=== PATIENT | female | born 1955 | race Caucasian/White ===

== ENCOUNTER 2021-06-27 00:27 | Inpatient (IN) ==
--- NOTE | 2021-06-27 00:47 | Emergency Department Note ---
SOB HPI General Chief Complaint: Shortness of Breath/Dyspnea Stated Complaint: Fluid overload Time Seen by Provider: 06/27/21 00:43 Source: patient and family Mode of arrival: wheelchair Limitations: no limitations History of Present Illness HPI Narrative: 66-year-old female presents via private vehicle with her daughter with chief complaint of shortness of breath. Shortness of breath has been getting worse the last several weeks. Patient has a history of end-stage renal failure she has had a renal transplant. She denies any chest pain. She also has gotten swelling her legs. Shortness of breath is worse with exertion and also the patient cannot lie flat due to shortness of breath. She is chronically on 5 L of oxygen at home. She has a history of congestive heart failure. Also has history of diabetes mellitus. Denies any fevers chills. Patient has had her first COVID-19 swab about 3 weeks ago. Patient has been making less urine. She does have a left upper extremity dialysis fistula and she has not been dialyzed in over a year. Patient has been cutting back on her fluids because she seem to be getting swelling in her legs. Related Data Home Medications Medication Instructions Recorded Confirmed aspirin [Adult Low Dose Aspirin] 81 mg PO QDAY 02/12/21 06/27/21 fluconazole 200 mg tablet 200 mg PO BID tab 04/07/21 06/27/21 multivitamin 1 tab PO QDAY 04/07/21 06/27/21 prasugrel 10 mg tablet See Rx Instructions .ROUTE 04/21/21 06/27/21 .COMPLEX tab bumetanide 1 mg PO BID 06/27/21 06/27/21 bumetanide 1 mg PO QDAY PRN 06/27/21 06/27/21 insulin lispro [Humalog KwikPen See Rx Instructions .ROUTE .COMPLEX 06/27/21 06/27/21 Insulin] mycophenolate mofetil [CellCept] 250 mg PO BID 06/27/21 06/27/21 phenolphthalein-docusate sod 100 tab PO DAILY 06/27/21 06/27/21 [Woman's Laxative (bisacodyl)] Previous Rx's Medication Instructions Recorded amlodipine 10 mg tablet 10 mg PO QDAY #30 tab 04/08/21 atorvastatin 40 mg tablet 40 mg PO QDAY #30 tab 04/08/21 blood sugar diagnostic #200 ea 04/08/21 insulin degludec 100 unit/mL (3 13 unit SUBCUT QHS #12 ml 04/08/21 mL) subcutaneous pen omeprazole 20 mg capsule,delayed 20 mg PO QDAY #30 cap 04/08/21 release ondansetron HCl 4 mg tablet 4 mg PO Q6H PRN #30 tab 04/08/21 pen needle, diabetic 32 gauge x #100 ea 04/08/21 3/16" prednisone 5 mg tablet 5 mg PO QDAY #90 tab 04/21/21 tacrolimus 0.75 mg tablet,extended 0.75 mg PO QAM #90 tab 04/21/21 release 24 hr tacrolimus 1 mg tablet,extended 1 mg PO QAM #90 tab 04/21/21 release 24 hr Allergies Allergy/AdvReac Type Severity Reaction Status Date / Time piperacillin [From Zosyn] Allergy Intermediate Rash Verified 06/27/21 00:33 tazobactam [From Zosyn] Allergy Intermediate Rash Verified 06/27/21 00:33 anti-thymocyte globulin, Allergy Unknown Pain and Verified 06/27/21 00:33 rabbit swelling [From Thymoglobulin] of heart cefepime [From Maxipime] AdvReac Intermediate Seizure Verified 06/27/21 00:33 Review of Systems ROS ROS Narrative: Narrative: All systems ED: reviewed and negative except as stated. Constitutional: Denies fever, chills and sweats Eyes: Denies vision change ENT ED: Denies throat pain and congestion Cardiovascular: Reports edema; Denies chest pain Respiratory: Reports shortness of breath Gastrointestinal: Denies abdominal pain, vomiting and diarrhea Musculoskeletal: Denies back pain and joint pain Integumentary: Denies rash Neurological: Denies headache and dizziness Psychiatric: Denies anxiety, suicidal thoughts and homicidal thoughts Endocrine: Denies polydipsia and polyuria Hematological/Lymphatic: Denies easy bleeding and easy bruising PFSH Narrative Patient History Narrative: Narrative: Medical/Surgical/Family History All Active Problems (Updated 06/27/21 @ 02:04 by Iker Valdez MD) CHF (congestive heart failure) (Acute) Hyponatremia (Acute) Chronic kidney disease (CKD) stage G3b/A3, moderately decreased glomerular filtration rate (GFR) between 30-44 mL/min/1.73 square meter and albuminuria creatinine ratio greater than 300 mg/g (Chronic) Kidney transplant status, cadaveric (Chronic) Immunosuppression (Chronic) Arthritis (Acute) Skin cancer (Acute) Complication of anesthesia (Acute) Coronary artery disease (Chronic) Hypertension (Chronic) Ischemic cardiomyopathy (Chronic) Chronic respiratory failure with hypoxia (Chronic) Anemia (Chronic) Moderate protein-calorie malnutrition (Acute) Heart failure with reduced ejection fraction (Chronic) ESRD (end stage renal disease) (Chronic) Status post kidney transplant (Chronic) H/O partial thyroidectomy (Chronic) Chronic otitis media of left ear with perforated tympanic membrane (Chronic) Drainage from right ear (Chronic) 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, controlled, with neuropathy (Chronic) Shortness of breath (Acute) Plugged feeling in ear (Acute) Nose congested (Acute) Bloody nose (Acute) Cryptococcus (Acute) History of cryptococcosis (Acute) Medical History Acute HFrEF (heart failure with reduced ejection fraction) Acute kidney injury Anemia Arthritis Blood infection Bloody nose Chronic otitis media of left ear with perforated tympanic membrane Chronic respiratory failure with hypoxia 5 L O2 Complication of anesthesia Nausea with anesthesia Coronary artery disease CABG x5 (1999) Cryptococcus Drainage from right ear Chronic ESRD (end stage renal disease) Heart failure with reduced ejection fraction History of cryptococcosis Hypertension Hypokalemia Hypomagnesemia Immunosuppression Ischemic cardiomyopathy Moderate protein-calorie malnutrition Nose congested Plugged feeling in ear Shortness of breath Skin cancer Type 1 diabetes mellitus with retinopathy Type 1 diabetes, controlled, with neuropathy Surgical History H/O partial thyroidectomy History of section 1971 & 1973 History of coronary angioplasty with insertion of stent (~2017) History of coronary artery bypass graft (~2001) x5 History of hysterectomy (~1988) History of mitral valve repair History of partial thyroidectomy (~2005) and partial parathyroidectomy History of renal transplant (~2017) Status post kidney transplant 01/2018 Family History Mother Skin cancer Type 2 diabetes mellitus Father Type 2 diabetes mellitus Grandmother Type 2 diabetes mellitus Paternal Social History Smoking Status: Former smoker Alcohol Intake Frequency: former alcohol drinker Substance Use: does not use Exam Narrative Narrative: Vital Signs reviewed. Constitutional: Awake alert no acute distress well-nourished well-developed Head: Normocephalic, atraumatic Eyes: PERRLA, EOMI, no conjunctivitis Ear: Normal canals and TM's Oropharynx: moist oral mucosa, no edema, no erythema, no exudate Neck: Supple, no lymphadenopathy, no JVD Lungs: Diminished breath sounds at the base lungs clear Cardiac: Regular rate and rhythm, normal distal pulses, GI: Soft nontender nondistended no guarding no rebound Musculoskeletal: No tenderness, no deformities, 1+ pedal edema, left upper extremity dialysis fistula present Back: no CVA or midline tenderness Neuro: Awake alert, cranial nerves II through XII grossly intact, no focal motor or sensory deficits Psychiatric: Normal mood and affect Skin: Warm dry no rash, cap refill less than 2 seconds General Limitations: no limitations Course Consultations Consultation #1: Case discussed discussed with supervisor tunnel heading, Dr. Pineda who agrees to see the patient in consultation. Recommends patient be given a dose of Lasix 80 mg IV now x1. Time: 02:07 Consultation #2: Patient discussed with hospitalist Dr. Welsh who agrees admit patient. Time: 02:20 Vital Signs Vital signs: Vital Signs Temperature 97.4 F 06/27/21 00:28 Pulse Rate 90 06/27/21 00:28 Respiratory Rate 16 06/27/21 00:28 Blood Pressure 140/59 06/27/21 00:28 Pulse Oximetry (%) 91 06/27/21 00:28 Temperature 97.4 F 06/27/21 00:28 Pulse Rate 79 06/27/21 02:17 Respiratory Rate 19 06/27/21 02:17 Blood Pressure 130/60 06/27/21 02:17 Pulse Oximetry (%) 96 06/27/21 02:17 [facility] Narrative Medical decision making narrative: 66-year-old presents with increasing shortness of breath. Has a history of CKD prior kidney transplant. Also has a history of congestive heart failure. She had chronically on 5 L of oxygen per nasal cannula. She has worsening exertional dyspnea and orthopnea. Chest x-ray shows pulmonary edema. BNP is elevated. BUN/creatinine were also elevated at 40 and 2.6 which is around the patient's baseline patient also has had some nausea vomiting and sodium was 126. Case discussed with supervisor tunnel heading Dr. Pineda who recommended Lasix 80 mg IV x1 he will see the patient in the hospital. Case also discussed with hospitalist Dr. Welsh agrees admit patient for evaluation and treatment. Differential Diagnosis Differential Diagnosis: CHF, acute on chronic kidney failure, anemia, pneumonia, COVID-19 Lab Data Result diagrams: 06/27/21 01:02 06/27/21 01:01 Labs: Lab Results 06/27/21 06/27/21 06/27/21 Range/Units 01:01 01:01 01:02 WBC 9.5 (4.5-11.0) K/mcL RBC 3.92 (3.59-5.38) M/mcL Hgb 11.0 L (11.2-15.7) g/dL Hct 33.3 L (34.1-44.9) % MCV 84.9 (80.0-100.0) fL MCH 28.1 (26.0-34.0) pg MCHC 33.0 (31.0-36.0) g/dL RDW 13.9 (11.5-14.5) % Plt Count 467 H (140-440) K/mcL MPV 9.2 (7.4-10.4) fL APTT (20.0-37.0) sec Sodium 126 L (133-145) mmol/L Potassium 4.7 (3.3-5.1) mmol/L Chloride 89 L (96-108) mmol/L Carbon Dioxide 19 L (22-30) mmol/L Anion Gap 18.0 H (8.0-16.0) BUN 40 H (8-23) mg/dL Creatinine 2.6 H (0.6-1.1) mg/dL GFR Calculation 18 Glucose 112 H (70-105) mg/dL Calcium 10.1 (8.6-10.4) mg/dL Total Bilirubin 0.3 (0.1-1.0) mg/dL AST 30 (<32) U/L ALT 22 (<40) U/L Alkaline Phosphatase 178 H (39-117) U/L Troponin T 0.03 H (<0.03) ng/mL NT-Pro-B Natriuret Pep 7720.0 H (<125.0) pg/mL Total Protein 7.4 (5.9-8.4) gm/dL Albumin 4.2 (3.2-5.2) gm/dL Globulin 3.2 (2.2-3.7) gm/dL Albumin/Globulin Ratio 1.3 (1.0-2.3) 06/27/21 Range/Units 01:02 WBC (4.5-11.0) K/mcL RBC (3.59-5.38) M/mcL Hgb (11.2-15.7) g/dL Hct (34.1-44.9) % MCV (80.0-100.0) fL MCH (26.0-34.0) pg MCHC (31.0-36.0) g/dL RDW (11.5-14.5) % Plt Count (140-440) K/mcL MPV (7.4-10.4) fL APTT 30.6 (20.0-37.0) sec Sodium (133-145) mmol/L Potassium (3.3-5.1) mmol/L Chloride (96-108) mmol/L Carbon Dioxide (22-30) mmol/L Anion Gap (8.0-16.0) BUN (8-23) mg/dL Creatinine (0.6-1.1) mg/dL GFR Calculation Glucose (70-105) mg/dL Calcium (8.6-10.4) mg/dL Total Bilirubin (0.1-1.0) mg/dL AST (<32) U/L ALT (<40) U/L Alkaline Phosphatase (39-117) U/L Troponin T (<0.03) ng/mL NT-Pro-B Natriuret Pep (<125.0) pg/mL Total Protein (5.9-8.4) gm/dL Albumin (3.2-5.2) gm/dL Globulin (2.2-3.7) gm/dL Albumin/Globulin Ratio (1.0-2.3) ED POC Tests ED POC Tests: NILAM - SARS Antigen Negative EKG Data EKG #1: EKG attestation: Yes I reviewed and interpreted this EKG. and Yes There are no EKG findings of acute coronary syndrome EKG results narrative: EKG performed at 1:03 AM shows sinus rhythm rate of 83 right axis deviation right bundle branch block left posterior fascicular block nonspecific ST changes no ectopy Discharge Plan Patient/Caregiver Discharge Instructions Pt seen by DONOR PROCESSOR/PA only: No Clinical Impression: ESRD (end stage renal disease), CHF (congestive heart failure), Hyponatremia, Status post kidney transplant Patient Disposition: Xfer As Inpt ([facility]) Condition: Fair Follow up with: Chris Dey MD [Primary Care Provider] - Prescriptions: No Action multivitamin Tablet 1 tab PO QDAY RF: 0 amlodipine 10 mg tablet 10 mg PO QDAY Qty: 30 RF: 2 atorvastatin 40 mg tablet 40 mg PO QDAY Qty: 30 RF: 2 (DME) blood sugar diagnostic Strip See Rx Instructions .Route Qty: 200 RF: 5 Tresiba FlexTouch U-100 100 unit/mL (3 mL) insulin pen 13 unit subcut QHS Qty: 12 RF: 0 omeprazole 20 mg capsule,delayed release(DR/EC) 20 mg PO QDAY Qty: 30 RF: 2 ondansetron HCl [Zofran] 4 mg tablet 4 mg PO Q6H PRN (Reason: nausea and vomiting) Qty: 30 RF: 0 (DME) pen needle, diabetic [Comfort EZ Pen [place]] 32 gauge x 3/16" needle See Rx Instructions .Route Qty: 100 RF: 5 Envarsus XR 1 mg tablet extended release 24 hr 1 mg PO QAM Qty: 90 RF: 3 Envarsus XR 0.75 mg tablet extended release 24 hr 0.75 mg PO QAM Qty: 90 RF: 3 prednisone 5 mg tablet 5 mg PO QDAY Qty: 90 RF: 3 Adult Low Dose Aspirin 81 mg Tablet 81 mg PO QDAY RF: 0 fluconazole 200 mg tablet 200 mg PO BID RF: 0 prasugrel [Effient] 10 mg tablet See Rx Instructions .ROUTE .COMPLEX RF: 0 bumetanide 1 mg Tablet 1 mg PO QDAY PRN (Reason: fluid overload) RF: 0 mycophenolate mofetil [CellCept] 250 mg capsule 250 mg PO BID RF: 0 bumetanide 1 mg tablet 1 mg PO BID RF: 0 insulin lispro [Humalog KwikPen Insulin] 100 unit/mL insulin pen See Rx Instructions .ROUTE .COMPLEX RF: 0 Woman's Laxative (bisacodyl) 65-100 mg Tablet 100 tab PO DAILY RF: 0
[2021-06-27] MEDS ORDERED: ONDANSETRON 4 MG/2 ML VIAL IV ONE (01:16)
[2021-06-27 01:28] LABS: Hematocrit 33.3 % (34.1-44.9); Mean Cell Volume 84.9 fL (80.0-100.0); Mean Platelet Volume 9.2 fL (7.4-10.4); Platelet Count 467 K/mcL (140-440); RBC 3.92 M/mcL (3.59-5.38); Red Cell Distribution Width 13.9 % (11.5-14.5); WBC 9.5 K/mcL (4.5-11.0)
[2021-06-27 01:46] LABS: ALT/SGPT 22 U/L (<40); AST/SGOT 30 U/L (<32); Albumin 4.2 gm/dL (3.2-5.2); Albumin/Globulin Ratio 1.3 (1.0-2.3); Alkaline Phosphatase 178 U/L (39-117); Bilirubin,Total 0.3 mg/dL (0.1-1.0); Blood Urea Nitrogen 40 mg/dL (8-23); Calcium 10.1 mg/dL (8.6-10.4); Carbon Dioxide 19 mmol/L (22-30); Chloride 89 mmol/L (96-108); Globulin 3.2 gm/dL (2.2-3.7); Glomerular Filtration Rate 18; Glucose 112 mg/dL (70-105)
[2021-06-27] MEDS ORDERED: FUROSEMIDE 100 MG/10 ML VIAL IV ONE ×2 (02:07→10:39)
[2021-06-27 02:40] LABS: Basophils % (Manual) 1 % (0-2); Lymphocytes % 3 % (15-49); Monocytes % (Manual) 4 % (1-12); Platelet Estimate INCREASED (Normal); RBC Fragments RARE (None Seen); RBC Morphology ABNORMAL (Normal); Segmented Neutrophils % 92 % (38-78)
[2021-06-27] MEDS ORDERED: METOCLOPRAMIDE 10 MG/2 ML VIAL IV ONE (03:33)
--- NOTE | 2021-06-27 07:26 | Internal Med History&Physical ---
HPI History of Present Illness Patient information: Note initiated : 06/27/21 at 7:18 am Service Date, if different from initiated Date: [] Patient: Rain Aj a 66 y/o F admitted on 06/27/21 for Fluid overload. Chief Complaint: [] History of present illness: Ms. Aj is a 66 year old F Presents to the ED with shortness of breath and she says that over the past couple weeks it feels like she is slowly becoming more fluid overloaded. She also has some nausea and dry heaving and daughter reports that the happens when she becomes fluid overloaded. She is on 5 L of oxygen at home. Increased swelling in her legs. She had been on dialysis in the past but received a kidney transplant. In the ED she was worked up and chest x-ray showed pulmonary edema and she was given Lasix. BUN and creatinine were elevated. And she had a low sodium of 126. Case discussed with can conveyor feeder Dr. Pineda. Patient had a poor response from the Lasix given last night. Patient is severely hard of hearing and a lot of history is obtained from the daughter. Daughter states that patient becomes fluid overloaded occasionally and it seems to be once a year. When this happens she will go in the hospital and the usually dialyze her for few days and that will resolve her issue. Patient denies being exposed to anybody sick recently Denies any fevers or chills. Has some nausea. Review of Systems: Pertinent positives as above. Denies/fever/chills/chest or abdominal pain/diarrhea. Remaining 10 point review of system reviewed negative PFSH PFSH All Active Problems (Updated 06/27/21 @ 02:04 by Iker Valdez MD) CHF (congestive heart failure) (Acute) Hyponatremia (Acute) Chronic kidney disease (CKD) stage G3b/A3, moderately decreased glomerular filtration rate (GFR) between 30-44 mL/min/1.73 square meter and albuminuria creatinine ratio greater than 300 mg/g (Chronic) Kidney transplant status, cadaveric (Chronic) Immunosuppression (Chronic) Arthritis (Acute) Skin cancer (Acute) Complication of anesthesia (Acute) Coronary artery disease (Chronic) Hypertension (Chronic) Ischemic cardiomyopathy (Chronic) Chronic respiratory failure with hypoxia (Chronic) Anemia (Chronic) Moderate protein-calorie malnutrition (Acute) Heart failure with reduced ejection fraction (Chronic) ESRD (end stage renal disease) (Chronic) Status post kidney transplant (Chronic) H/O partial thyroidectomy (Chronic) Chronic otitis media of left ear with perforated tympanic membrane (Chronic) Drainage from right ear (Chronic) 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, controlled, with neuropathy (Chronic) Shortness of breath (Acute) Plugged feeling in ear (Acute) Nose congested (Acute) Bloody nose (Acute) Cryptococcus (Acute) History of cryptococcosis (Acute) Medical History Acute HFrEF (heart failure with reduced ejection fraction) Acute kidney injury Anemia Arthritis Blood infection Bloody nose Chronic otitis media of left ear with perforated tympanic membrane Chronic respiratory failure with hypoxia 5 L O2 Complication of anesthesia Nausea with anesthesia Coronary artery disease CABG x5 (1999) Cryptococcus Drainage from right ear Chronic ESRD (end stage renal disease) Heart failure with reduced ejection fraction History of cryptococcosis Hypertension Hypokalemia Hypomagnesemia Immunosuppression Ischemic cardiomyopathy Moderate protein-calorie malnutrition Nose congested Plugged feeling in ear Shortness of breath Skin cancer Type 1 diabetes mellitus with retinopathy Type 1 diabetes, controlled, with neuropathy Surgical History H/O partial thyroidectomy History of section 1971 & 1973 History of coronary angioplasty with insertion of stent (~2017) History of coronary artery bypass graft (~2001) x5 History of hysterectomy (~1988) History of mitral valve repair History of partial thyroidectomy (~2005) and partial parathyroidectomy History of renal transplant (~2017) Status post kidney transplant 01/2018 Family History Mother Skin cancer Type 2 diabetes mellitus Father Type 2 diabetes mellitus Grandmother Type 2 diabetes mellitus Paternal Social History (Updated 04/07/21 @ 10:06 by Shraddha Ayala RN) marital status: smoking status: Former smoker pack-years: 5 alcohol intake frequency: former alcohol drinker substance use type: does not use MEDS/ALLERGIES Home Medications and Allergies Home Medications Medication Instructions Recorded Confirmed Type aspirin [Adult Low Dose Aspirin] 81 mg PO QDAY 02/12/21 06/27/21 History fluconazole 200 mg tablet 200 mg PO BID tab 04/07/21 06/27/21 History multivitamin 1 tab PO QDAY 04/07/21 06/27/21 History atorvastatin 40 mg tablet 40 mg PO QDAY #30 tab 04/08/21 06/27/21 Rx blood sugar diagnostic #200 ea 04/08/21 06/27/21 Rx insulin degludec 100 unit/mL (3 13 unit SUBCUT QHS #12 ml 04/08/21 06/27/21 Rx mL) subcutaneous pen omeprazole 20 mg capsule,delayed 20 mg PO QDAY #30 cap 04/08/21 06/27/21 Rx release ondansetron HCl 4 mg tablet 4 mg PO Q6H PRN #30 tab 04/08/21 06/27/21 Rx pen needle, diabetic 32 gauge x #100 ea 04/08/21 06/27/21 Rx 01/19" prasugrel 10 mg tablet See Rx Instructions .ROUTE 04/21/21 06/27/21 History .COMPLEX tab prednisone 5 mg tablet 5 mg PO QDAY #90 tab 04/21/21 06/27/21 Rx tacrolimus 0.75 mg tablet,extended 0.75 mg PO QAM #90 tab 04/21/21 06/27/21 Rx release 24 hr tacrolimus 1 mg tablet,extended 1 mg PO QAM #90 tab 04/21/21 06/27/21 Rx release 24 hr amlodipine 10 mg PO QDAY 06/27/21 06/27/21 History bumetanide 1 mg PO BID 06/27/21 06/27/21 History bumetanide 1 mg PO QDAY PRN 06/27/21 06/27/21 History insulin lispro [Humalog KwikPen See Rx Instructions .ROUTE .COMPLEX 06/27/21 06/27/21 History Insulin] mycophenolate mofetil [CellCept] 250 mg PO BID 06/27/21 06/27/21 History phenolphthalein-docusate sod 100 tab PO DAILY 06/27/21 06/27/21 History [Woman's Laxative (bisacodyl)] Allergies Allergy/AdvReac Type Severity Reaction Status Date / Time piperacillin [From Zosyn] Allergy Intermediate Rash Verified 06/27/21 03:40 tazobactam [From Zosyn] Allergy Intermediate Rash Verified 06/27/21 03:40 anti-thymocyte globulin, Allergy Unknown Pain and Verified 06/27/21 03:40 rabbit swelling [From Thymoglobulin] of heart cefepime [From Maxipime] AdvReac Intermediate Seizure Verified 06/27/21 03:40 EXAM Constitutional Vitals: Temp Pulse Resp BP Pulse Ox 97.2 F 77 14 139/56 99 06/27/21 03:24 06/27/21 06:01 06/27/21 06:01 06/27/21 06:01 06/27/21 06:01 Exam: General: Alert, Awake, No acute Distress Eyes/N/T: EOMI, PERRL, Head/Neck: neck supple, normocephalic atraumatic CV: RRR, 2/6SM, normal s1/s2 Pulm: Diminished b/l bases with mild rales, no wheezing Abd: soft, nontender, +BS x4 Ext: no clubbing/cyanosis, 1+ b/l LE edema. LUE fistula Neuro: Alert, no focal deficits, moves all extremities, CN 2-12 grossly intact, symmetrical strength b/l upper/lower, sensations intact b/l upper/lower Skin: warm/dry DATA Data Completed and Pending Labs: Labs from last 24 hours 06/27/21 06/27/21 06/27/21 01:02 01:02 01:01 WBC 9.5 RBC 3.92 Hgb 11.0 L Hct 33.3 L MCV 84.9 MCH 28.1 MCHC 33.0 RDW 13.9 Plt Count 467 H MPV 9.2 Seg Neutrophils % 92 H Lymphocytes % 3 L Monocytes % (Manual) 4 Basophils % (Manual) 1 Platelet Estimate Increased A RBC Morphology Abnormal A RBC Fragments Rare A APTT 30.6 Sodium Potassium Chloride Carbon Dioxide Anion Gap BUN Creatinine GFR Calculation Glucose Calcium Total Bilirubin AST ALT Alkaline Phosphatase Troponin T 0.03 H NT-Pro-B Natriuret Pep Total Protein Albumin Globulin Albumin/Globulin Ratio 06/27/21 01:01 WBC RBC Hgb Hct MCV MCH MCHC RDW Plt Count MPV Seg Neutrophils % Lymphocytes % Monocytes % (Manual) Basophils % (Manual) Platelet Estimate RBC Morphology RBC Fragments APTT Sodium 126 L Potassium 4.7 Chloride 89 L Carbon Dioxide 19 L Anion Gap 18.0 H BUN 40 H Creatinine 2.6 H GFR Calculation 18 Glucose 112 H Calcium 10.1 Total Bilirubin 0.3 AST 30 ALT 22 Alkaline Phosphatase 178 H Troponin T NT-Pro-B Natriuret Pep 7720.0 H Total Protein 7.4 Albumin 4.2 Globulin 3.2 Albumin/Globulin Ratio 1.3 A/P Narrative A/P Narrative: A: *Volume overloaded with acute on chronic diastolic CHF w/pulmonary edema: -pt states this seems to happen once a year and she usually goes into the hospital for dialysis *CLARY on CKD IIb-IV: h/o HD but received kidney transplant 2017 *Kidney transplant: *Hyponatremia *O2-dependent @home (5L): *DM: *HTN/HLD: *Anemia, chronic: *GERD: *CAD w/CABG: * P: -Nephrology consulted -diuretics vs HD per nephrology -O2 supp, IS -basal and SSI -cont transplant meds -cont ASA/effient/Statin - -pt/ot -ppx: heparin/ home ppi DNR Time Spent With Patient Time: Total time spent is greater than 50% in coordination of care (as documented) at patient's floor/unit and/or counseling patient: QUALITY VTE Deep Vein Thrombosis/Pulmonary Embolism Present on Admission: No
--- NOTE | 2021-06-27 07:51 | Nephrology Consult Note ---
HPI Data of Consult Consult date: 06/27/21 Primary Care Provider: Chris Dey MD Consult Narrative cc:: CC: Pato Welsh HPI: this a patient seen by Dr Wise with a RTx and a complicated PMX as outine in Dr Cherry last clinic note as shown below. 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 She recently moved from [place] to be closer to family and had a recent admission at [facility]. Labs on 04/07/21: Serum sodium 138, potassium 4.4, CO2 22, creatinine 1.3, eGFR 43, calcium 10.2, albumin 4.3, WBC 9.6, PLT 401, hemoglobin 11.6, TIBC 16%, ferritin 108, vitamin B12 701, random urine microalbumin/creatinine ratio 131 mg/g creatinine. Admitted to [facility] (02/12/21 to 02/24/21) for transplant pyelonephritis with E coli bacteremia, acute renal failure and hyponatremia. Echo: LVEF 45%. Labs on 02/24/21: Serum sodium 138, potassium 4.0, CO2 32, creatinine 1.52, eGFR 35.61, phosphorus 3.7, WBC 11.68, hemoglobin 10.5, PLT 436, TIBC 39%, ferritin 238, BNP 411. Labs on 02/18/21: Cryptococcal antigen positive. Labs on 02/16/21: BK virus DNA negative. Labs on 02/14/21: Urinalysis yellow, hazy, pH 5.0, SG 1.014, protein 30, blood n egative, leukocyte esterase moderate, urine WBC 36, random urine total protein/creatinine ratio 1,100 mg/g creatinine. CT Chest, Abdomen and Pelvis on 02/12/21: Prominent extra-articular soft tissue de nsity surrounding the left sternoclavicular joint. Clinical correlation for symptoms of sternoclavicularitis recommended. Cardiomegaly. Small right pleural effusion. Calcification appears to be pleural-based at the left lung base. Atrophic [place] kidneys. No hydronephrosis. No perinephric abnormality. Transplanted kidney in the left iliac fossa is negative. No significant hydronephrosis or perinephric abnormality. Extensive atherosclerotic calcification. No abdominal aortic aneurysm. No intra-abdominal abscess." Interval Hx she has seen ID and cardiology specialists to establish care. ER reports a chief complaint of shortness of breath. Shortness of breath has been getting worse the last several weeks. Patient has a history of end-stage renal failure she has had a renal transplant. She denies any chest pain. She also has gotten swelling her legs. Shortness of breath is worse with exertion and also the patient cannot lie flat due to shortness of breath. She is chronically on 5 L of oxygen at home. She has a history of congestive heart failure. Also has history of diabetes mellitus. Denies any fevers chills. Patient has had her first COVID-19 swab about 3 weeks ago. Patient has been making less urine. She does have a left upper extremity dialysis fistula and she has not been dialyzed in over a year. Patient has been cutting back on her fluids because she seem to be getting swelling in her legs. The daughter insists that once a year she needs U/F for SOB and nothing else helps including HD. He prior chain saw mechanic is Dr Brannon in [place]. Prior SCr 1.6 mg/dl. RTx is in LLQ. She was given 100 mg bolus of furosemide IV with only 200 cc over 4 hours. Therefore, will do isolated U/F for 2 hrs and 3 liters and reassess in AM. There was NO pericardial effusion or tamponade physiology on the echocardiogram. Prior Visit with Dr Hedrick: Prior visit from Dr Vasquez: Laboratory Tests 06/27/21 06/27/21 06/27/21 01:01 01:01 01:02 WBC 9.5 Hgb 11.0 L Hct 33.3 L MCV 84.9 Plt Count 467 H Sodium 126 L Potassium 4.7 GFR Calculation 18 Glucose 112 H Troponin T 0.03 H NT-Pro-B Natriuret Pep 7720.0 H 06/24/21 11:30 Urine Color Yellow Urine Appearance Clear Urine pH 5.0 Ur Specific [place] 1.014 Urine Protein Negative Urine Glucose (UA) Negative Urine Ketones Negative Urine Occult Blood Negative Urine Nitrate Negative Urine Bilirubin Negative Ur Leukocyte Esterase Negative 02/12/21 04/07/21 06/27/21 09:15 11:14 01:01 Creatinine 2.5 H 1.3 H 2.6 H 06/26/2021 Impression: Severe pulmonary HTN with impressive PA on plain film of chest. There is concern for a restrictive cardiomyopathy (Amyloidosis due to chronic infection with crypto). If this is the case, one can expect progression of disease but I would have expected proteinuria. Treat pulmonary HTN Diuresis as tolerated. Graft failure to continue, minimize Tacrolimus Biomarkers for inflammation Echo to look for MVR function, Rule out tamponade PFSH PFSH All Active Problems (Updated 06/27/21 @ 17:38 by Dustin Pineda MD) Immunosuppression (Chronic) Arthritis (Acute) Skin cancer (Acute) Complication of anesthesia (Acute) Coronary artery disease (Chronic) Hypertension (Chronic) Ischemic cardiomyopathy (Chronic) Chronic respiratory failure with hypoxia (Chronic) Anemia (Chronic) Moderate protein-calorie malnutrition (Acute) Heart failure with reduced ejection fraction (Chronic) ESRD (end stage renal disease) (Chronic) Status post kidney transplant (Chronic) H/O partial thyroidectomy (Chronic) Chronic otitis media of left ear with perforated tympanic membrane (Chronic) Drainage from right ear (Chronic) 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, controlled, with neuropathy (Chronic) Shortness of breath (Acute) Plugged feeling in ear (Acute) Nose congested (Acute) Bloody nose (Acute) Cryptococcus (Acute) History of cryptococcosis (Acute) Kidney transplant status, cadaveric (Chronic) Chronic kidney disease (CKD) stage G3b/A3, moderately decreased glomerular filtration rate (GFR) between 30-44 mL/min/1.73 square meter and albuminuria creatinine ratio greater than 300 mg/g (Chronic) CHF (congestive heart failure) (Acute) Hyponatremia (Acute) Medical History Acute HFrEF (heart failure with reduced ejection fraction) Acute kidney injury Anemia Arthritis Blood infection Bloody nose Chronic otitis media of left ear with perforated tympanic membrane Chronic respiratory failure with hypoxia 5 L O2 Complication of anesthesia Nausea with anesthesia Coronary artery disease CABG x5 (1999) Cryptococcus Drainage from right ear Chronic ESRD (end stage renal disease) Heart failure with reduced ejection fraction History of cryptococcosis Hypertension Hypokalemia Hypomagnesemia Immunosuppression Ischemic cardiomyopathy Moderate protein-calorie malnutrition Nose congested Plugged feeling in ear Shortness of breath Skin cancer Type 1 diabetes mellitus with retinopathy Type 1 diabetes, controlled, with neuropathy Surgical History H/O partial thyroidectomy History of section 1971 & 1973 History of coronary angioplasty with insertion of stent (~2017) History of coronary artery bypass graft (~2001) x5 History of hysterectomy (~1988) History of mitral valve repair History of partial thyroidectomy (~2005) and partial parathyroidectomy History of renal transplant (~2017) Status post kidney transplant 01/2018 Family History Mother Skin cancer Type 2 diabetes mellitus Father Type 2 diabetes mellitus Grandmother Type 2 diabetes mellitus Paternal Social History (Updated 04/07/21 @ 10:06 by Shraddha Ayala RN) marital status: smoking status: Former smoker pack-years: 5 alcohol intake frequency: former alcohol drinker substance use type: does not use MEDS/ALLERGIES Home Medications and Allergies Home Medications Medication Instructions Recorded Confirmed Type aspirin [Adult Low Dose Aspirin] 81 mg PO QDAY 02/12/21 06/27/21 History fluconazole 200 mg tablet 200 mg PO BID tab 04/07/21 06/27/21 History multivitamin 1 tab PO QDAY 04/07/21 06/27/21 History atorvastatin 40 mg tablet 40 mg PO QDAY #30 tab 04/08/21 06/27/21 Rx blood sugar diagnostic #200 ea 04/08/21 06/27/21 Rx insulin degludec 100 unit/mL (3 13 unit SUBCUT QHS #12 ml 04/08/21 06/27/21 Rx mL) subcutaneous pen omeprazole 20 mg capsule,delayed 20 mg PO QDAY #30 cap 04/08/21 06/27/21 Rx release ondansetron HCl 4 mg tablet 4 mg PO Q6H PRN #30 tab 04/08/21 06/27/21 Rx pen needle, diabetic 32 gauge x #100 ea 04/08/21 06/27/21 Rx 01/19" prasugrel 10 mg tablet See Rx Instructions .ROUTE 04/21/21 06/27/21 History .COMPLEX tab prednisone 5 mg tablet 5 mg PO QDAY #90 tab 04/21/21 06/27/21 Rx tacrolimus 0.75 mg tablet,extended 0.75 mg PO QAM #90 tab 04/21/21 06/27/21 Rx release 24 hr tacrolimus 1 mg tablet,extended 1 mg PO QAM #90 tab 04/21/21 06/27/21 Rx release 24 hr amlodipine 10 mg PO QDAY 06/27/21 06/27/21 History bumetanide 1 mg PO BID 06/27/21 06/27/21 History bumetanide 1 mg PO QDAY PRN 06/27/21 06/27/21 History insulin lispro [Humalog KwikPen See Rx Instructions .ROUTE .COMPLEX 06/27/21 06/27/21 History Insulin] mycophenolate mofetil [CellCept] 250 mg PO BID 06/27/21 06/27/21 History phenolphthalein-docusate sod 100 tab PO DAILY 06/27/21 06/27/21 History [Woman's Laxative (bisacodyl)] Allergies Allergy/AdvReac Type Severity Reaction Status Date / Time piperacillin [From Zosyn] Allergy Mild Rash Verified 06/27/21 08:39 tazobactam [From Zosyn] Allergy Mild Rash Verified 06/27/21 08:39 anti-thymocyte globulin, AdvReac Intermediate Pain and Verified 06/27/21 08:39 rabbit swelling [From Thymoglobulin] of heart cefepime [From Maxipime] AdvReac Intermediate Seizure Verified 06/27/21 03:40 Physical Examination Vital Signs Vital signs: Temp Pulse Resp BP Pulse Ox 36.2 C 77 14 139/56 99 06/27/21 03:24 06/27/21 06:01 06/27/21 06:01 06/27/21 06:01 06/27/21 06:01 General Appearance General appearance: chronically ill and frail EENT EENT: ATNC and PERRL Neck Neck: JVD and supple Respiratory Respiratory: kyphosis and rales Cardiovascular Cardiology: holosystolic murmur, S3 gallop, normal S1 and normal S2 Gastrointestinal Gastrointestinal: normoactive bowel sounds Integumentary Integumentary: no rash and warm and dry Neurologic Neurologic: no focal deficit and CN 3-12 intact Musculoskeletal Musculoskeletal: no cyanosis and no clubbing Psychiatric Psychiatric: mood/affect appropriate Results Lab Results Result Diagrams: 06/27/21 01:02 06/27/21 01:01 Lab results: Most recent lab results Calcium 10.1 mg/dL (8.6-10.4) 06/27/21 01:01 A/P Assessment and plan (1) Status post kidney transplant: Assessment and plan: * GFR stable relative to 02/[address] Wise * Continue 1.75 mg qAM of Tacrolimus from pt home Rx supply * Check Tacro level * Continue cellcept and prednisone * Trend labs Status: Chronic Comment: 01/2018 (2) Heart failure with reduced ejection fraction: Assessment and plan: No tamponade or effusion Restrictive physiology on ECHO Given the hx of yearly U/F for decompensated CHF...she would have to be way to the RIGHT on the Starling curve. The lack of urine production would agree with this. Isolated U/F tonight SPEP and light chain ratio, Inflammatory biomarkers and cryoglobulins in the AM Fat pad biopsy to r/o Amyloid Schedule out patient pyrophosphate scan with [facility] med at [facility] Follow up with Dr Oseas Hedrick at [facility] cardiology Status: Chronic (3) Ischemic cardiomyopathy: Status: Chronic Comment: No change in current Rx MR (+) Decompensated CHF Narrative A/P Narrative: 1. Acute U/F tonight to push back to left on starling curve 2. Work up cardiac amyloid as restrictive CHF pattern on ECHO and a chronic infection (Crypto) Time Spent With Patient Time: Total time spent is greater than 50% in coordination of care (as documented) at patient's floor/unit and/or counseling patient: Total time spent with greater than 50% in coordination of care (as documented) at patient's floor/unit and/or counseling patient:: Greater than 35 minutes
[2021-06-27] MEDS ORDERED: ACETAMINOPHEN 325 MG TABLET PO PRN (08:33)
[2021-06-27] MEDS ORDERED: DEXTROSE 50% 50 ML VIAL IV PRN (08:33)
[2021-06-27] MEDS ORDERED: MAGNESIUM SULFATE 2 GM/50 ML BAG IV PRN (08:33)
[2021-06-27] MEDS ORDERED: POLYETHYLENE GLYCOL 3350 17 GM PACKET PO PRN (08:33)
[2021-06-27] MEDS ORDERED: ONDANSETRON 4 MG/2 ML VIAL IV PRN (08:33)
[2021-06-27] MEDS ORDERED: SENNOSIDES 1 TABLET PO PRN (08:33)
[2021-06-27] MEDS ORDERED: METOCLOPRAMIDE 10 MG/2 ML VIAL IV PRN (08:33)
[2021-06-27] MEDS ORDERED: DEXTROSE 31 GM ORAL.SUSP PO PRN (08:33)
[2021-06-27] MEDS ORDERED: IPRATROPIUM/ALBUTEROL 3 ML AMPUL.NEB NEB PRN (08:33)
[2021-06-27] MEDS ORDERED: LACTULOSE 20 GM/30 ML ORAL.SOL PO PRN (08:33)
[2021-06-27] MEDS ORDERED: POTASSIUM CHLORIDE 20 MEQ TABLET PO PRN ×2 (08:33)
[2021-06-27] MEDS ORDERED: POTASSIUM CHLORIDE 40 MEQ in DEXTROSE 5% IN WATER 500 ML IV PRN (08:33)
[2021-06-27] MEDS ORDERED: FLUCONAZOLE 100 MG TABLET PO SCH (09:00)
--- NOTE | 2021-06-27 09:18 | XRay Report ---
HISTORY: History: Dyspnea, congestive heart failure, prior kidney transplant, former smoker, fluid overload FINDINGS: There are severe diffuse alveolar opacities throughout both lungs. There are small bilateral pleural effusions, right greater than left. The heart is mildly enlarged. There has been a prior sternotomy. Comparison with the prior exam from 02/24/21 shows the cardiomegaly is stable. The alveolar opacities are worse today than they were previously. IMPRESSION: Congestive heart failure with pulmonary edema. Superimposed pneumonia cannot be excluded. Interpreted and Authenticated by: Sudhakar Sullivan 06/27/21
[2021-06-27] MEDS: ATORVASTATIN 40 MG TABLET PO SCH ×2 (09:50→10:47)
[2021-06-27] MEDS: HEPARIN 5,000 UNIT/ML VIAL SQ SCH ×3 (09:50→20:44)
[2021-06-27] MEDS: predniSONE 5 MG TABLET PO SCH ×2 (09:50→10:47)
[2021-06-27] MEDS: OMEPRAZOLE 20 MG CAPSULE PO SCH (09:50)
[2021-06-27] MEDS: MYCOPHENOLATE 250 MG CAPSULE PO SCH ×2 (09:50→20:44)
[2021-06-27] MEDS: ASPIRIN 81 MG TAB.CHEW PO SCH ×2 (09:50→10:48)
[2021-06-27] MEDS: DOCUSATE SOD PO SCH (09:51)
[2021-06-27] MEDS: DOCUSATE SODIUM 100 MG CAPSULE PO SCH ×3 (09:51→20:45)
[2021-06-27] MEDS: amLODIPine 10 MG TABLET PO SCH (09:51)
[2021-06-27] MEDS: [UNRECOGNIZED DRUG - OTHER] PO SCH (09:51)
[2021-06-27] MEDS: TACROLIMUS 0.75 MG PO SCH (09:52)
[2021-06-27] MEDS: TACROLIMUS 1 MG PO SCH (09:53)
[2021-06-27] MEDS: INSULIN LISPRO 1 UNIT/0.01 ML UNIT SQ SCH ×3 (12:00→20:45)
[2021-06-27] MEDS: 0.9 % SODIUM CHLORIDE 10 ML SYRINGE IV SCH ×2 (12:01→20:46)
[2021-06-27] MEDS: FLUCONAZOLE 100 MG TABLET PO SCH (14:57)
[2021-06-27] MEDS ORDERED: predniSONE 5 MG TABLET PO SCH (15:00)
[2021-06-27 19:34] LABS: Hepatitis B Surface Antibody POSITIVE (Negative); Hepatitis B Surface Antigen Negative (Negative)
[2021-06-27] MEDS ORDERED: INSULIN DEGLUDEC 100 UNIT/ML SUB-Q SCH (21:00)
[2021-06-27] MEDS ORDERED: ASPIRIN 81 MG TAB.CHEW PO SCH (21:00)
[2021-06-27] MEDS ORDERED: ATORVASTATIN 40 MG TABLET PO SCH (21:00)
[2021-06-28] MEDS: 0.9 % SODIUM CHLORIDE 10 ML SYRINGE IV SCH ×3 (05:58→21:38)
--- NOTE | 2021-06-28 07:12 | Internal Med Progress Note ---
SUBJECTIVE Subjective Patient information: Note initiated : 06/28/21 at 7:09 am Service Date, if different from initiated Date: [] Patient: Rain Aj 66 y/o F admitted on 06/27/21 for Fluid overload. Chief Complaint: [] Interval history: History of present illness: Ms. Aj is a 66 year old F Presents to the ED with shortness of breath and she says that over the past couple weeks it feels like she is slowly becoming more fluid overloaded. She also has some nausea and dry heaving and daughter reports that the happens when she becomes fluid overloaded. She is on 5 L of oxygen at home. Increased swelling in her legs. She had been on dialysis in the past but received a kidney transplant. In the ED she was worked up and chest x-ray showed pulmonary edema and she was given Lasix. BUN and creatinine were elevated. And she had a low sodium of 126. Case discussed with progressive die maker Dr. Pineda. Patient had a poor response from the Lasix given last night. Patient is severely hard of hearing and a lot of history is obtained from the daughter. Daughter states that patient becomes fluid overloaded occasionally and it seems to be once a year. When this happens she will go in the hospital and the usually dialyze her for few days and that will resolve her issue. Patient denies being exposed to anybody sick recently Denies any fevers or chills. Has some nausea. 06/28 Hemodialysis yesterday evening. Still has some shortness of breath today but better than yesterday. No overnight events. Awaiting chemistry. Occasional cough. Review of Systems: denies headache/fever/chills/nausea/vomiting/chest or abdominal pain/diarrhea. Otherwise see above. Constitutional Vitals: Vital Signs Temp Pulse Resp BP Pulse Ox 98 F 86 18 150/53 92 06/28/21 04:01 06/28/21 04:01 06/28/21 04:01 06/28/21 04:01 06/28/21 04:01 Period Temp Pulse Resp BP Sys/Delgado Pulse Ox Last 24 Hr 97.5 F-98.5 F 72-87 15-22 107-150/48-78 92-100 Intake and Output 06/27/21 06/28/21 06/28/21 21:59 05:59 13:59 Intake Total 480 760 Output Total 3100 150 Balance -2620 610 Weight 72.03 kg Intake & Output: Intake & Output 06/27/21 06/28/21 06/28/21 21:59 05:59 13:59 Intake Total 480 760 Output Total 3100 150 Balance -2620 610 Weight 72.03 kg Intake: Oral 480 760 Output: Void Amount 100 150 Hemodialysis UF 3000 Other: Meal Dinner Percent of Meal Consumed 25% Urine Appearance Clear Clear Urine Color Dark Yellow Dark Yellow Exam: General: Alert, Awake, No acute Distress Eyes/N/T: EOMI, , Head/Neck: neck supple, CV: RRR, 2/6SM, normal s1/s2 Pulm: Diminished b/l bases, no carolyn rales, no wheezing Abd: soft, nontender, +BS x4 Ext: no clubbing/cyanosis, 1+ b/l LE edema. LUE fistula Neuro: Alert, no focal deficits, moves all extremities, Skin: warm/dry OBJ DATA Labs CBC & Chem 7: 06/27/21 01:02 06/27/21 01:01 Labs: Abnormal Lab Results 06/27/21 06/27/21 06/27/21 17:55 01:02 01:01 Hgb 11.0 L Hct 33.3 L Plt Count 467 H Seg Neutrophils % 92 H Lymphocytes % 3 L Platelet Estimate Increased A RBC Morphology Abnormal A RBC Fragments Rare A Sodium Chloride Carbon Dioxide Anion Gap BUN Creatinine Glucose Alkaline Phosphatase Troponin T 0.03 H NT-Pro-B Natriuret Pep Hep Bs Antibody Positive A 06/27/21 01:01 Hgb Hct Plt Count Seg Neutrophils % Lymphocytes % Platelet Estimate RBC Morphology RBC Fragments Sodium 126 L Chloride 89 L Carbon Dioxide 19 L Anion Gap 18.0 H BUN 40 H Creatinine 2.6 H Glucose 112 H Alkaline Phosphatase 178 H Troponin T NT-Pro-B Natriuret Pep 7720.0 H Hep Bs Antibody Meds: Medications Acetaminophen (Acetaminophen 325 Mg Tablet) 650 mg PO Q6HP PRN PRN Reason: PAIN/FEVER > 101 Last Admin: 06/27/21 16:31 Dose: 650 mg Documented by: Albuterol/Ipratropium (Ipratropium/Albuterol 3 Ml Ampul.Neb) 3 ml NEB Q4HP PRN PRN Reason: Shortness Of Breath Amlodipine Besylate (Amlodipine 10 Mg Tablet) 10 mg PO QDAY AFSHIN Last Admin: 06/27/21 09:51 Dose: 10 mg Documented by: Aspirin (Aspirin 81 Mg Tab.Chew) [address] [facility] Last Admin: 06/27/21 20:45 Dose: 81 mg Documented by: Atorvastatin Calcium (Atorvastatin 40 Mg Tablet) 40 mg PO HS [facility] Last Admin: 06/27/21 20:44 Dose: 40 mg Documented by: Dextrose (Dextrose 50% 50 Ml Vial) 0 ml IV UD PRN PRN Reason: Hypoglycemia Diagnostic Test (Pha) (Accu-Chek 1 Each Strip) 1 each FS [facility] Last Admin: 06/27/21 20:44 Dose: 1 each Documented by: Docusate Sodium (Docusate Sodium 100 Mg Capsule) 100 mg PO BID [facility] Last Admin: 06/27/21 20:45 Dose: 100 mg Documented by: Fluconazole (Fluconazole 100 Mg Tablet) 200 mg PO BID@0900,1500 [facility] Last Admin: 06/27/21 14:57 Dose: 200 mg Documented by: Glucose (Dextrose 31 Gm Oral.Susp) 15 gm PO PRN PRN PRN Reason: Hypoglycemia Heparin Sodium (Porcine) (Heparin 5,000 Unit/Ml Vial) 5,000 unit SQ Q12 [facility] Last Admin: 06/27/21 20:44 Dose: Not Given Documented by: Potassium Chloride 40 meq/ (Dextrose) 520 mls @ 130 mls/hr IV UD PRN PRN Reason: Potassium < 3 Magnesium Sulfate (Magnesium Sulfate) 2 gm in 50 mls @ 50 mls/hr IV UD PRN PRN Reason: Magnesium </= 1.6 Insulin Human Lispro (Insulin Lispro 1 Unit/0.01 Ml Unit) 0 unit SQ [facility]; Protocol Last Admin: 06/27/21 20:45 Dose: 7 units Documented by: Lactulose (Lactulose 20 Gm/30 Ml Oral.Yelena) 20 gm PO DAILYP PRN PRN Reason: Constipation Metoclopramide HCl (Metoclopramide 10 Mg/2 Ml Vial) 10 mg IV Q6HP PRN PRN Reason: Nausea And Vomiting Last Admin: 06/27/21 11:46 Dose: 10 mg Documented by: Mycophenolate Mofetil (Mycophenolate 250 Mg Capsule) 250 mg PO BID [facility] Last Admin: 06/27/21 20:44 Dose: 250 mg Documented by: Omeprazole (Omeprazole 20 Mg Capsule) 20 mg PO QDAY [facility] Last Admin: 06/27/21 09:50 Dose: 20 mg Documented by: Ondansetron HCl (Ondansetron 4 Mg/2 Ml Vial) 4 mg IV Q4HP PRN PRN Reason: Nausea And Vomiting Last Admin: 06/27/21 09:12 Dose: 4 mg Documented by: Insulin Degludec [ Tresiba Flextouch U- 100] 100 Unit/Ml Pen 13 dose SUB-Q QHS [facility] Last Admin: 06/27/21 20:45 Dose: 13 dose Documented by: Phenolphthalein- Docusate Sod 65-100 Mg Tablet 1 dose PO DAILY [facility] Last Admin: 06/27/21 09:51 Dose: Not Given Documented by: Prasugrel [Effient] (10 Mg Tablet) 1 dose PO MoWeFr@0900 [facility] Tacrolimus [Envarsus Xr] 0.75 Mg Tablet Extended Release [facility] Last Admin: 06/27/21 09:52 Dose: 1 dose Documented by: Tacrolimus [Envarsus Xr] 1 Mg Tablet Extended Release 1 dose [facility] Last Admin: 06/27/21 09:53 Dose: 1 dose Documented by: Pneumococcal Polyvalent Vaccine (Pneumococcal 23-Delia P-Sac Vac 0.5 Ml Syringe) 0.5 ml IM .ONCE ONE Stop: 06/28/21 10:01 Polyethylene Glycol (Polyethylene Glycol 3350 17 Gm Packet) 17 gm PO DAILYP PRN PRN Reason: Constipation Potassium Chloride (Potassium Chloride 20 Meq Tablet) 40 meq PO UD PRN PRN Reason: Potssium is 3-3.5 Potassium Chloride (Potassium Chloride 20 Meq Tablet) 40 meq PO UD PRN PRN Reason: Potassium < 3 Prednisone (Prednisone 5 Mg Tablet) 5 mg PO DAILY@1500 [facility] Last Admin: 06/27/21 14:57 Dose: 5 mg Documented by: Senna (Sennosides 1 Tablet) 2 tab PO DAILYP PRN PRN Reason: Constipation Sodium Chloride (0.9 % Sodium Chloride 10 Ml Syringe) 10 ml IV Q8 [facility] Last Admin: 06/28/21 05:58 Dose: 10 ml Documented by: A/P Narrative A/P Narrative: A: *Volume overloaded with acute on chronic diastolic CHF w/pulmonary edema: -pt states this seems to happen once a year and she usually goes into the hospital for dialysis *CLARY on CKD IIIb-IV: h/o HD but received kidney transplant 2018 *h/o Kidney transplant 2018: *Hyponatremia: *O2-dependent @home (5L): *DM: *HTN/HLD: *Anemia, chronic: *GERD: *CAD w/CABG: *Hearing impairment: P: -Nephrology following -diuretics/HD per nephrology -O2 supp, IS -basal and SSI -cont transplant meds -cont ASA/effient/Statin -pt/ot -ppx: heparin/ home ppi DNR Time Spent With Patient Time: Total time spent is greater than 50% in coordination of care (as documented) at patient's floor/unit and/or counseling patient: QUALITY VTE Deep Vein Thrombosis/Pulmonary Embolism Present on Admission: No
[2021-06-28 08:07] LABS: Complement C3 98.4 mg/dL (90.0-180.0)
[2021-06-28 08:09] LABS: ALT/SGPT 21 U/L (<40); AST/SGOT 27 U/L (<32); Albumin/Globulin Ratio 1.4 (1.0-2.3); Alkaline Phosphatase 167 U/L (39-117); Bilirubin,Direct < 0.2 mg/dL (0-0.3); Bilirubin,Total 0.2 mg/dL (0.1-1.0); Blood Urea Nitrogen 45 mg/dL (8-23); Calcium 9.4 mg/dL (8.6-10.4); Carbon Dioxide 21 mmol/L (22-30); Chloride 87 mmol/L (96-108); Globulin 2.8 gm/dL (2.2-3.7); Glomerular Filtration Rate 16; Glucose 130 mg/dL (70-105); Lactate Dehydrogenase 310 U/L (135-225); Phosphorous 3.5 mg/dL (2.5-4.5); Triglycerides 92 mg/dL (<150); Uric Acid 8.8 mg/dL (2.5-8.0)
[2021-06-28] MEDS: TACROLIMUS 1 MG PO SCH (09:23)
[2021-06-28] MEDS: TACROLIMUS 0.75 MG PO SCH (09:24)
[2021-06-28] MEDS: amLODIPine 10 MG TABLET PO SCH (09:31)
[2021-06-28] MEDS: MYCOPHENOLATE 250 MG CAPSULE PO SCH ×2 (09:31→21:30)
[2021-06-28] MEDS: FLUCONAZOLE 100 MG TABLET PO SCH ×2 (09:32→15:04)
[2021-06-28] MEDS: OMEPRAZOLE 20 MG CAPSULE PO SCH (09:32)
[2021-06-28] MEDS: INSULIN LISPRO 1 UNIT/0.01 ML UNIT SQ SCH ×4 (09:33→21:32)
[2021-06-28] MEDS ORDERED: PNEUMOCOCCAL 23-VAL P-SAC VAC 0.5 ML SYRINGE IM ONE (10:00)
[2021-06-28 10:10] LABS: Kappa Free Light Chains 64.99 mg/L (3.30-19.40)
[2021-06-28] MEDS ORDERED: METOLAZONE 2.5 MG TABLET PO ONE (10:30)
[2021-06-28] MEDS ORDERED: BUMETANIDE 0.25 MG/ML VIAL IV ONE (10:30)
[2021-06-28] MEDS: HEPARIN 5,000 UNIT/ML VIAL SQ SCH ×3 (10:33→21:41)
[2021-06-28] MEDS: [UNRECOGNIZED DRUG - OTHER] PO SCH (10:33)
[2021-06-28] MEDS: DOCUSATE SOD PO SCH (10:33)
[2021-06-28] MEDS: DOCUSATE SODIUM 100 MG CAPSULE PO SCH ×2 (10:34→21:29)
--- NOTE | 2021-06-28 10:43 | Nephrology Progress Note ---
SUBJECTIVE Subjective Patient information: Note initiated : 06/28/21 at 10:34 am Service Date, if different from initiated Date: [] Patient: Rain Aj 66 y/o F admitted on 06/27/21 for Fluid overload. Chief Complaint: [SOB] Despite GFR >15 cc/min, underwent Isolated U/F for 3 liter with some improvemnt Her issue is pulmonary HTN leading to EDEMA and SOB, Kidneys are not the primary cause. Looking into amyloidosis as possible cause of cardiomyopathy given care home inflammation from crypto => SPEP and abd fat pad biopsy. Trial Bumetanide 5 mg (~ 200 mg of IV furosemide) and metolazone x 1 dose each=> less than 250 cc. Daughter insisting on HD. Calling office to find Dr Wise, so I will accommodate with the provision that this will extend life duration but due to CV disease and pulmonary HTN, a benefit in terms of QOL is very unlikely. Will be hospitalized frequently. Serum sodium is chronically low and as such po fluid restriction and slow/short HD intensity and duration is called for...explained to daughter. Finally, she barely meets criteria for Medicare reimbursement (GFR 16 cc/min) but will be ESRD in my opinion. Additionally, daughter agrees to transportation to and fro HD unit 2/3 times a week. 06/28/21 06/28/21 05:38 05:39 ESR 17 Sodium 123 L Potassium 4.6 Chloride 87 L Carbon Dioxide 21 L Anion Gap 15.0 BUN 45 H Creatinine 2.9 H GFR Calculation 16 Glucose 130 H Uric Acid 8.8 H Calcium 9.4 Phosphorus 3.5 Magnesium 3.0 H GGT 168 H AST 27 Lactate Dehydrogenase 310 H Albumin 4.0 Tacrolimus IgG 655 L IgA 185 IgM 199.7 KATHERINE Interpretation See comment Cryoglobulin Pending Complement C3 98.4 Complement C4 27.5 Free [place] LC, Quant 64.99 H Free Lambda LC, Quant 32.00 H Free Speed/Lambda Ratio 2.031 H Hep Bs Antigen Neg Hep Bs Antibody Pos Serum sodium Serum creatinine Constitutional Vitals: Vital Signs Temp Pulse Resp BP Pulse Ox 36.9 C 81 20 129/61 96 06/28/21 08:00 06/28/21 08:00 06/28/21 08:00 06/28/21 08:00 06/28/21 08:00 Period Temp Pulse Resp BP Sys/Delgado Pulse Ox Last 24 Hr 36.4 C-36.9 C 72-87 15-22 107-150/48-78 92-100 Intake and Output 06/27/21 06/28/21 06/28/21 21:59 05:59 13:59 Intake Total 480 760 Output Total 3100 150 Balance -2620 610 Weight 72.03 kg Intake & Output: Intake & Output 06/27/21 06/28/21 06/28/21 21:59 05:59 13:59 Intake Total 480 760 Output Total 3100 150 Balance -2620 610 Weight 72.03 kg Intake: Oral 480 760 Output: Void Amount 100 150 Hemodialysis UF 3000 Other: Meal Dinner Percent of Meal Consumed 25% Urine Appearance Clear Clear Urine Color Dark Yellow Dark Yellow General appearance: cooperative and mild distress Head Head exam: Present atraumatic and normal inspection Eye Eye exam: Present EOMI and PERRL ENT ENT exam: Present mucous membranes moist Neck Neck exam: Present full ROM Respiratory Respiratory exam: Present decreased breath sounds, prolonged expiratory phase and rhonchi Cardiovascular Cardiovascular exam: Present JVD, +S1, +S2 and systolic murmur Additional comments: 3/6 RENZO at RUSP that varies with respiration 3/6 HSM at apex to left axillary line. GI/Abdominal GI/Abdominal exam: Present normal bowel sounds and soft Extremities Exam Extremities exam: Present pedal edema; Absent calf tenderness and Ji's sign Additional comments: Left upper arm AVF with bruit and thrill Neurological Exam Neurological exam: Present CN II-XII intact and oriented X3 Psychiatric Psychiatric exam: Present anxious Skin Skin exam: Present dry; Absent petechiae and rash A/P Assessment and plan (1) ESRD (end stage renal disease): Status: Chronic (2) Heart failure with reduced ejection fraction: Status: Chronic (3) Pulmonary hypertension assoc with unclear multi-factorial mechanisms: Status: Acute (4) Hyponatremia with excess extracellular fluid volume: Status: Chronic Comment: Asymptomatic Appropriate ADH release from CHF and diuresis with unrestricted free water intake. Suggest rigorous free water restriction (5) Chronic respiratory failure with hypoxia: Status: Chronic Comment: 5 L O2 (6) Status post kidney transplant: Status: Chronic Comment: 01/2018 Narrative A/P Narrative: Assessment and plan (1) Status post kidney transplant: Assessment and plan: GFR stable relative to 02/[address] Wise Continue 1.75 mg qAM of Tacrolimus from pt home Rx supply Check [place] level Continue cellcept and prednisone Trend labs (2) Heart failure with reduced ejection fraction: Assessment and plan: No tamponade or effusion Restrictive physiology on ECHO Given the hx of yearly U/F for decompensated CHF...she would have to be way to the RIGHT on the Starling curve. The lack of urine production would agree with this. Isolated U/F tonight SPEP and light chain ratio, Inflammatory biomarkers and cryoglobulins in the AM Fat pad biopsy to r/o Amyloid Schedule out patient pyrophosphate scan with NUC med at [facility] Follow up with Dr Oseas Rose at [facility] cardiology (3) Ischemic cardiomyopathy: Narrative A/P Narrative: 1. Acute U/F tonight to push back to left on starling curve 2. Work up cardiac amyloid as restrictive CHF pattern on ECHO and a chronic infection (Crypto) (4) Hyponatremia Short Tx ordered with HD PO fluid restrict D/C Diuretics as she is refractory to huge dose Bumex and metolazone (5) ESRD Arrange out patient Tx Hepatitis serologies Will be Dr Wise's patient Time Spent With Patient Time: Total time spent is greater than 50% in coordination of care (as docu mented) at patient's floor/unit and/or counseling patient: Total time spent with greater than 50% in coordination of care (as documented) at patient's floor/unit and/or counseling patient:: Greater than 35 minutes
[2021-06-28] MEDS ORDERED: ONDANSETRON 4 MG/2 ML VIAL IV PRN (14:23)
[2021-06-28] MEDS ORDERED: SENNOSIDES 1 TABLET PO PRN (14:23)
[2021-06-28] MEDS ORDERED: LACTULOSE 20 GM/30 ML ORAL.SOL PO PRN (14:23)
[2021-06-28] MEDS ORDERED: POTASSIUM CHLORIDE 20 MEQ TABLET PO PRN ×2 (14:23)
[2021-06-28] MEDS ORDERED: IPRATROPIUM/ALBUTEROL 3 ML AMPUL.NEB NEB PRN (14:23)
[2021-06-28] MEDS ORDERED: DEXTROSE 31 GM ORAL.SUSP PO PRN (14:23)
[2021-06-28] MEDS ORDERED: POTASSIUM CHLORIDE 40 MEQ in DEXTROSE 5% IN WATER 500 ML IV PRN (14:23)
[2021-06-28] MEDS ORDERED: MAGNESIUM SULFATE 2 GM/50 ML BAG IV PRN (14:23)
[2021-06-28] MEDS ORDERED: METOCLOPRAMIDE 10 MG/2 ML VIAL IV PRN (14:23)
[2021-06-28] MEDS ORDERED: POLYETHYLENE GLYCOL 3350 17 GM PACKET PO PRN (14:23)
[2021-06-28] MEDS ORDERED: DEXTROSE 50% 50 ML VIAL IV PRN (14:23)
[2021-06-28] MEDS ORDERED: ACETAMINOPHEN 325 MG TABLET PO PRN (14:23)
[2021-06-28] MEDS: predniSONE 5 MG TABLET PO SCH (15:04)
[2021-06-28 15:42] LABS: Immunoglobulin A 185 mg/dL (70-400); Immunoglobulin G 655 mg/dL (700-1600); Immunoglobulin M 199.7 mg/dL (40.0-230.0)
[2021-06-28] MEDS: ASPIRIN 81 MG TAB.CHEW PO SCH (21:30)
[2021-06-28] MEDS: ATORVASTATIN 40 MG TABLET PO SCH (21:30)
[2021-06-28] MEDS: INSULIN DEGLUDEC 100 UNIT/ML SUB-Q SCH (21:33)
--- NOTE | 2021-06-29 07:42 | Internal Med Progress Note ---
SUBJECTIVE Subjective Patient information: Note initiated : 06/29/21 at 7:41 am Service Date, if different from initiated Date: [] Patient: Rain Aj 66 y/o F admitted on 06/27/21 for Fluid overload. Chief Complaint: [] Interval history: History of present illness: Ms. Aj is a 66 year old F Presents to the ED with shortness of breath and she says that over the past couple weeks it feels like she is slowly becoming more fluid overloaded. She also has some nausea and dry heaving and daughter reports that the happens when she becomes fluid overloaded. She is on 5 L of oxygen at home. Increased swelling in her legs. She had been on dialysis in the past but received a kidney transplant. In the ED she was worked up and chest x-ray showed pulmonary edema and she was given Lasix. BUN and creatinine were elevated. And she had a low sodium of 126. Case discussed with news content specialist Dr. Pineda. Patient had a poor response from the Lasix given last night. Patient is severely hard of hearing and a lot of history is obtained from the daughter. Daughter states that patient becomes fluid overloaded occasionally and it seems to be once a year. When this happens she will go in the hospital and the usually dialyze her for few days and that will resolve her issue. Patient denies being exposed to anybody sick recently Denies any fevers or chills. Has some nausea. 06/28 Hemodialysis yesterday evening. Still has some shortness of breath today but better than yesterday. No overnight events. Awaiting chemistry. Occasional cough. 06/29 Patient short of breath last night states poor sleep because of it. She is getting dialysis this morning. Review of Systems: denies headache/fever/chills/nausea/vomiting/chest or abdominal pain/diarrhea. Otherwise see above. Constitutional Vitals: Vital Signs Temp Pulse Resp BP Pulse Ox 98.0 F 85 20 142/68 94 06/29/21 04:30 06/29/21 04:30 06/29/21 04:30 06/29/21 04:30 06/29/21 04:30 Period Temp Pulse Resp BP Sys/Delgado Pulse Ox Last 24 Hr 98.0 F-98.7 F 80-85 20- 129-142/58-68 91-96 Intake and Output 06/28/21 06/29/21 06/29/21 21:59 05:59 13:59 Intake Total 200 425 Output Total 300 Balance -100 425 Weight 75.705 kg Intake & Output: Intake & Output 06/28/21 06/29/21 06/29/21 21:59 05:59 13:59 Intake Total 200 425 Output Total 300 Balance -100 425 Weight 75.705 kg Intake: Oral 200 425 Output: Void Amount 300 Other: Meal Lunch Nourishment/Supplement Percent of Meal Consumed 50% Exam: General: Alert, Awake, No acute Distress Eyes/N/T: EOMI, , Head/Neck: neck supple, CV: RRR, 2/6SM, normal s1/s2 Pulm: Diminished b/l bases, no carolyn rales, no wheezing Abd: soft, nontender, +BS x4 Ext: no clubbing/cyanosis, 1+ b/l LE edema. LUE fistula Neuro: Alert, no focal deficits, moves all extremities, Skin: warm/dry OBJ DATA Labs CBC & Chem 7: 06/27/21 01:02 06/29/21 06:03 Labs: Abnormal Lab Results 06/28/21 06/28/21 06/27/21 05:39 05:38 17:55 Hgb Hct Plt Count Seg Neutrophils % Lymphocytes % Platelet Estimate RBC Morphology RBC Fragments Sodium 123 L Chloride 87 L Carbon Dioxide 21 L Anion Gap BUN 45 H Creatinine 2.9 H Glucose 130 H Uric Acid 8.8 H Magnesium 3.0 H GGT 168 H Alkaline Phosphatase 167 H Lactate Dehydrogenase 310 H Troponin T NT-Pro-B Natriuret Pep IgG 655 L Free [place] LC, Quant 64.99 H Free Lambda LC, Quant 32.00 H Free [place]/Lambda Ratio 2.031 H Hep Bs Antibody Positive A 06/27/21 06/27/21 06/27/21 01:02 01:01 01:01 Hgb 11.0 L Hct 33.3 L Plt Count 467 H Seg Neutrophils % 92 H Lymphocytes % 3 L Platelet Estimate Increased A RBC Morphology Abnormal A RBC Fragments Rare A Sodium 126 L Chloride 89 L Carbon Dioxide 19 L Anion Gap 18.0 H BUN 40 H Creatinine 2.6 H Glucose 112 H Uric Acid Magnesium GGT Alkaline Phosphatase 178 H Lactate Dehydrogenase Troponin T 0.03 H NT-Pro-B Natriuret Pep 7720.0 H IgG Free [place] LC, Quant Free Lambda LC, Quant Free [place]/Lambda Ratio Hep Bs Antibody Meds: Medications Acetaminophen (Acetaminophen 325 Mg Tablet) 650 mg PO Q6HP PRN PRN Reason: PAIN/FEVER > 101 Albuterol/Ipratropium (Ipratropium/Albuterol 3 Ml Ampul.Neb) 3 ml NEB Q4HP PRN PRN Reason: Shortness Of Breath Amlodipine Besylate (Amlodipine 10 Mg Tablet) 10 mg PO QDAY [facility] Aspirin (Aspirin 81 Mg Tab.Chew) 81 mg PO HS [facility] Last Admin: 06/28/21 21:30 Dose: 81 mg Documented by: Atorvastatin Calcium (Atorvastatin 40 Mg Tablet) 40 mg PO HS [facility] Last Admin: 06/28/21 21:30 Dose: 40 mg Documented by: Dextrose (Dextrose 50% 50 Ml Vial) 0 ml IV UD PRN PRN Reason: Hypoglycemia Diagnostic Test (Pha) (Accu-Chek 1 Each Strip) 1 each FS [facility] Last Admin: 06/28/21 21:28 Dose: 1 each Documented by: Docusate Sodium (Docusate Sodium 100 Mg Capsule) 100 mg PO BID [facility] Last Admin: 06/28/21 21:29 Dose: 100 mg Documented by: Fluconazole (Fluconazole 100 Mg Tablet) 200 mg PO BID@0900,1500 [facility] Last Admin: 06/28/21 15:04 Dose: 200 mg Documented by: Glucose (Dextrose 31 Gm Oral.Susp) 15 gm PO PRN PRN PRN Reason: Hypoglycemia Heparin Sodium (Porcine) (Heparin 5,000 Unit/Ml Vial) 5,000 unit SQ Q12 [facility] Last Admin: 06/28/21 21:41 Dose: Not Given Documented by: Magnesium Sulfate (Magnesium Sulfate) 2 gm in 50 mls @ 50 mls/hr IV UD PRN PRN Reason: Magnesium </= 1.6 Potassium Chloride 40 meq/ (Dextrose) 520 mls @ 130 mls/hr IV UD PRN PRN Reason: Potassium < 3 Insulin Human Lispro (Insulin Lispro 1 Unit/0.01 Ml Unit) 0 unit SQ ACHS [facility]; Protocol Last Admin: 06/28/21 21:32 Dose: Not Given Documented by: Lactulose (Lactulose 20 Gm/30 Ml Oral.Yelena) 20 gm PO DAILYP PRN PRN Reason: Constipation Metoclopramide HCl (Metoclopramide 10 Mg/2 Ml Vial) 10 mg IV Q6HP PRN PRN Reason: Nausea And Vomiting Mycophenolate Mofetil (Mycophenolate 250 Mg Capsule) 250 mg PO BID [facility] Last Admin: 06/28/21 21:30 Dose: 250 mg Documented by: Omeprazole (Omeprazole 20 Mg Capsule) 20 mg PO QDAY [facility] Ondansetron HCl (Ondansetron 4 Mg/2 Ml Vial) 4 mg IV Q4HP PRN PRN Reason: Nausea And Vomiting Phenolphthalein- Docusate Sod 65-100 Mg Tablet 1 dose PO DAILY [facility] Prasugrel [Effient] (10 Mg Tablet) 1 dose PO MoWeFr@0900 [facility] Tacrolimus [Envarsus Xr] 0.75 Mg Tablet Extended Release 1 dose PO QAM [facility] Tacrolimus [Envarsus Xr] 1 Mg Tablet Extended Release 1 dose PO QAM [facility] Insulin Degludec [ Tresiba Flextouch U- 100] 100 Unit/Ml Pen 13 dose SUB-Q QHS [facility] Last Admin: 06/28/21 21:33 Dose: 13 dose Documented by: Polyethylene Glycol (Polyethylene Glycol 3350 17 Gm Packet) 17 gm PO DAILYP PRN PRN Reason: Constipation Potassium Chloride (Potassium Chloride 20 Meq Tablet) 40 meq PO UD PRN PRN Reason: Potssium is 3-3.5 Potassium Chloride (Potassium Chloride 20 Meq Tablet) 40 meq PO UD PRN PRN Reason: Potassium < 3 Prednisone (Prednisone 5 Mg Tablet) 5 mg PO DAILY@1500 [facility] Last Admin: 06/28/21 15:04 Dose: 5 mg Documented by: Senna (Sennosides 1 Tablet) 2 tab PO DAILYP PRN PRN Reason: Constipation Sodium Chloride (0.9 % Sodium Chloride 10 Ml Syringe) 10 ml IV Q8 [facility] Last Admin: 06/28/21 21:38 Dose: 10 ml Documented by: A/P Narrative A/P Narrative: A: *Volume overloaded with acute on chronic diastolic CHF w/pulmonary edema: improving -pt states this seems to happen once a year and she usually goes into the hospital for dialysis *CLARY on CKD IIIb-IV: h/o HD but received kidney transplant 2018 *h/o Kidney transplant 2018: *Hyponatremia: *O2-dependent @home (5L): *DM: *HTN/HLD: *Anemia, chronic: *GERD: *CAD w/CABG: *Hearing impairment: P: -Nephrology following -diuretics/HD per nephrology -O2 supp, IS -f/u cxr in AM -basal and SSI -cont transplant meds -cont ASA/effient/Statin -pt/ot -ppx: heparin/ home ppi DNR Time Spent With Patient Time: Total time spent is greater than 50% in coordination of care (as documented) at patient's floor/unit and/or counseling patient: QUALITY VTE Deep Vein Thrombosis/Pulmonary Embolism Present on Admission: No
[2021-06-29] MEDS: INSULIN LISPRO 1 UNIT/0.01 ML UNIT SQ SCH ×4 (07:59→21:27)
[2021-06-29 08:08] LABS: Hepatitis C Virus Antibody Non-Reactive (Non-Reactive)
[2021-06-29 08:31] LABS: ALT/SGPT 20 U/L (<40); AST/SGOT 27 U/L (<32); Albumin/Globulin Ratio 1.5 (1.0-2.3); Alkaline Phosphatase 171 U/L (39-117); Bilirubin,Direct < 0.2 mg/dL (0-0.3); Bilirubin,Total 0.2 mg/dL (0.1-1.0); Blood Urea Nitrogen 44 mg/dL (8-23); Calcium 9.4 mg/dL (8.6-10.4); Carbon Dioxide 21 mmol/L (22-30); Chloride 89 mmol/L (96-108); Globulin 2.7 gm/dL (2.2-3.7); Glomerular Filtration Rate 20; Glucose 141 mg/dL (70-105); Lactate Dehydrogenase 319 U/L (135-225); Phosphorous 3.5 mg/dL (2.5-4.5); Triglycerides 102 mg/dL (<150); Uric Acid 8.1 mg/dL (2.5-8.0)
--- NOTE | 2021-06-29 11:03 | Nephrology Progress Note ---
SUBJECTIVE Subjective Patient information: Note initiated : 06/29/21 at 10:58 am Service Date, if different from initiated Date: [] Patient: Rain Aj 66 y/o F admitted on 06/27/21 for Fluid overload. Chief Complaint: [SOB and fluid overload refractory to diuretic therapy] This patient has a GFR of about 15 cc/min and the failing left lower quadrant cadaveric renal transplant. She is on CellCept, tacrolimus and prednisone for immunosuppression. She lived and see [facility], she would need occasional isolated ultrafiltration treatments for fluid overload in the setting of rather severe pulmonary hypertension. She recently moved here and was seen by Dr. Wise creatinine of 2.4 in February 2021. While her creatinine is essentially the same, she had marked dyspnea and shortness of breath and required 5 L by nasal cannula to maintain an O2 sat above 90%. She was refractory to bumetanide 5 mg IV and metolazone 5 mg p.o.. Today she is undergoing her second renal replacement therapy treatment There is more ultrafiltration and less hemodialysis being performed so as not to cause a rapid increase in her serum sodium. There is a work-up undergoing for cardiac amyloidosis seen by Dr. Oseas Hedrick previously. My plan is to arrange outpatient hemodialysis at [facility] as she can no longer be managed with oral or IV diuretics. Laboratory Tests 06/29/21 06/29/21 06/29/21 06:02 06:02 06:03 Sodium 125 L Potassium 4.4 Chloride 89 L Carbon Dioxide 21 L Anion Gap 15.0 BUN 44 H Creatinine 2.4 H Glucose 141 H Uric Acid 8.1 H Calcium 9.4 Phosphorus 3.5 Magnesium 3.0 H GGT 172 H AST 27 ALT 20 Alkaline Phosphatase 171 H Lactate Dehydrogenase 319 H Albumin 4.0 Globulin 2.7 Hep B Core Total Ab Pending Hepatitis C Antibody Non-reactive 06/27/21 06/29/21 06/29/21 17:55 06:02 06:02 Hep Bs Antigen Negative Hep Bs Antibody Positive A Hep B Core Total Ab Pending Hepatitis C Antibody Non-reactive Constitutional Vitals: Vital Signs Temp Pulse Resp BP Pulse Ox 37.1 C 88 20 134/66 94 06/29/21 08:10 06/29/21 10:40 06/29/21 08:00 06/29/21 10:40 06/29/21 10:29 Period Temp Pulse Resp BP Sys/Delgado Pulse Ox Last 24 Hr 36.7 C-37.1 C 80-102 20-22 131-150/58-84 91-96 Intake and Output 06/28/21 06/29/21 06/29/21 21:59 05:59 13:59 Intake Total 200 425 Output Total 300 350 Balance -100 425 -350 Weight 75.705 kg Intake & Output: Intake & Output 06/28/21 06/29/21 06/29/21 21:59 05:59 13:59 Intake Total 200 425 Output Total 300 350 Balance -100 425 -350 Weight 75.705 kg Intake: Oral 200 425 Output: Void Amount 300 350 Other: Meal Lunch Nourishment/Supplement Percent of Meal Consumed 50% Urine Color Dark Yellow Urine Odor Strong General appearance: mild distress Exam: Seen on HD treatment Head Head exam: Present atraumatic and normocephalic Eye Eye exam: Present EOMI and PERRL; Absent scleral icterus Pupils: Present PERRL ENT ENT exam: Present mucous membranes moist Neck Neck exam: Present full ROM Respiratory Respiratory exam: Present decreased breath sounds, prolonged expiratory phase and rhonchi Cardiovascular Cardiovascular exam: Present irregular rhythm, JVD, +S1, +S2 and systolic murmur GI/Abdominal GI/Abdominal exam: Present normal bowel sounds and soft Extremities Exam Extremities exam: Present pedal edema and neurovascular intact Neurological Exam Neurological exam: Present abnormal gait (not tested but ambulated to ED), alert, CN II-XII intact and oriented X3 Psychiatric Psychiatric exam: Present flat affect Skin Skin exam: Absent petechiae Additional comments: sCATTERED ECCHYMOSIS A/P Narrative A/P Narrative: A/P Assessment and plan (1) ESRD (end stage renal disease): (2) Heart failure with reduced ejection fraction: (3) Pulmonary hypertension assoc with unclear multi-factorial mechanisms: (4) Hyponatremia with excess extracellular fluid volume: (5) Chronic respiratory failure with hypoxia: (6) Status post kidney transplant Narrative A/P Narrative: Assessment and plan (1) Status post kidney transplant: Assessment and plan: GFR stable relative to 02/[address] Wise Continue 1.75 mg qAM of Tacrolimus from pt home Rx supply Check [place] level Continue cellcept and prednisone Trend labs (2) Heart failure with reduced ejection fraction: Assessment and plan: No tamponade or effusion Restrictive physiology on ECHO Given the hx of yearly U/F for decompensated CHF...she would have to be way to the RIGHT on the Starling curve. The lack of urine production would agree with this. Isolated U/F tonight SPEP and light chain ratio, Inflammatory biomarkers and cryoglobulins in the AM Fat pad biopsy to r/o Amyloid Schedule out patient pyrophosphate scan with NUC med at [facility] Follow up with Dr Oseas Hedrick at [facility] cardiology (3) Ischemic cardiomyopathy: Narrative A/P Narrative: 1. Acute U/F tonight to push back to left on starling curve 2. Work up cardiac amyloid as restrictive CHF pattern on ECHO and a chronic infection (Crypto) (4) Hyponatremia Short Tx ordered with HD PO fluid restrict D/C Diuretics as she is refractory to huge dose Bumex and metolazone (5) ESRD Arrange out patient Tx Hepatitis serologies Will be Dr Wise's patient Time Spent With Patient Time: Total time spent is greater than 50% in coordination of care (as documented) at patient's floor/unit and/or counseling patient: Total time spent with greater than 50% in coordination of care (as documented) at patient's floor/unit and/or counseling patient:: Greater than 35 minutes
[2021-06-29] MEDS: 0.9 % SODIUM CHLORIDE 10 ML SYRINGE IV SCH ×3 (11:59→21:30)
[2021-06-29] MEDS: OMEPRAZOLE 20 MG CAPSULE PO SCH (12:01)
[2021-06-29] MEDS: MYCOPHENOLATE 250 MG CAPSULE PO SCH ×2 (12:01→21:11)
[2021-06-29] MEDS: [UNRECOGNIZED DRUG - OTHER] PO SCH (12:02)
[2021-06-29] MEDS: DOCUSATE SOD PO SCH (12:02)
[2021-06-29] MEDS: TACROLIMUS 0.75 MG PO SCH (12:02)
[2021-06-29] MEDS: TACROLIMUS 1 MG PO SCH (12:04)
[2021-06-29] MEDS: amLODIPine 10 MG TABLET PO SCH (12:05)
[2021-06-29] MEDS: HEPARIN 5,000 UNIT/ML VIAL SQ SCH ×2 (12:06→21:11)
[2021-06-29] MEDS: FLUCONAZOLE 100 MG TABLET PO SCH ×2 (12:06→16:00)
[2021-06-29] MEDS: predniSONE 5 MG TABLET PO SCH (16:01)
[2021-06-29] MEDS: DOCUSATE SODIUM 100 MG CAPSULE PO SCH ×2 (18:35→21:12)
[2021-06-29] MEDS: ATORVASTATIN 40 MG TABLET PO SCH (21:12)
[2021-06-29] MEDS: ASPIRIN 81 MG TAB.CHEW PO SCH (21:13)
[2021-06-29] MEDS: INSULIN DEGLUDEC 100 UNIT/ML SUB-Q SCH (21:14)
[2021-06-30] MEDS: 0.9 % SODIUM CHLORIDE 10 ML SYRINGE IV SCH ×2 (05:48→14:55)
--- NOTE | 2021-06-30 06:37 | XRay Report ---
CLINICAL INFORMATION: f/u edema COMPARISON: 06/27/2021 FINDINGS: Moderate cardiomegaly is unchanged. Mediastinum is unremarkable. Pulmonary vessels have decreased in caliber but remain mildly distended. Moderate edema or infiltrate throughout both lungs shows slight improvement in moderate patchy component of the right base as worsened. Small right pleural effusion noted IMPRESSION: Modest improvement in CHF pattern. Right basilar infiltrate worsening. Interpreted and Authenticated by: Medardo Ayala 06/30/21
[2021-06-30] MEDS: INSULIN LISPRO 1 UNIT/0.01 ML UNIT SQ SCH ×2 (07:27→11:56)
[2021-06-30 08:05] LABS: Blood Urea Nitrogen 29 mg/dL (8-23); Calcium 9.6 mg/dL (8.6-10.4); Carbon Dioxide 24 mmol/L (22-30); Chloride 91 mmol/L (96-108); Glomerular Filtration Rate 33; Glucose 95 mg/dL (70-105)
[2021-06-30] MEDS: OMEPRAZOLE 20 MG CAPSULE PO SCH (09:20)
[2021-06-30] MEDS: MYCOPHENOLATE 250 MG CAPSULE PO SCH (09:20)
[2021-06-30] MEDS: FLUCONAZOLE 100 MG TABLET PO SCH ×2 (09:20→14:53)
[2021-06-30] MEDS: DOCUSATE SOD PO SCH (09:21)
[2021-06-30] MEDS: amLODIPine 10 MG TABLET PO SCH (09:21)
[2021-06-30] MEDS: DOCUSATE SODIUM 100 MG CAPSULE PO SCH (09:21)
[2021-06-30] MEDS: [UNRECOGNIZED DRUG - OTHER] PO SCH (09:21)
[2021-06-30] MEDS: TACROLIMUS 1 MG PO SCH (09:23)
[2021-06-30] MEDS: TACROLIMUS 0.75 MG PO SCH (09:24)
[2021-06-30] MEDS: HEPARIN 5,000 UNIT/ML VIAL SQ SCH (09:24)
--- NOTE | 2021-06-30 13:37 | Discharge Summary ---
Discharge Provider Provider Patient information: Note initiated : 06/30/21 at 1:33 pm Service Date, if different from initiated Date: [] Patient: Rain Aj 66 y/o F admitted on 06/27/21 for Fluid overload. Chief Complaint: [Fluid overload] Date of admission: 06/27/21 03:24 Discharge date: 06/30/21 Primary care physician: Chris Dey MD Consults: 06/27/21 Consult to Physician [CONS] Stat Comment: Consulting Provider: Pato Welsh Reason For Exam: Physician to Consult Consult to Physician [CONS] Stat Comment: Consulting Provider: Pato Welsh Reason For Exam: Physician to Consult Consult to Physician [CONS] Stat Comment: Consulting Provider: Pato Welsh Reason For Exam: Physician to Consult Consult to Physician [CONS] Stat Comment: Consulting Provider: Pato Welsh Reason For Exam: Physician to Consult 06/27/21 08:37 Consult to Physician [CONS] Routine Comment: Consulting Provider: Dustin Pineda Reason For Exam: Physician to Consult 06/28/21 10:43 Consult to Physician [CONS] Routine Comment: ABD fat pad biopsy to R/O Amylodosis Consulting Provider: London Dow Reason For Exam: Physician to perform abd fat pad biopsy Discharge Meds Discharge Medications Home Medications aspirin 81 mg PO QDAY 02/12/21 [History Confirmed 06/27/21 Last Taken 06/26/21 21:00] fluconazole 200 mg tablet 200 mg PO BID tab 04/07/21 [History Confirmed 1 Last Taken 06/26/21 21:00] multivitamin 1 tab PO QDAY 04/07/21 [History Confirmed 06/27/21 Last Taken 06/26/21 15:00] atorvastatin 40 mg tablet 40 mg PO QDAY #30 tab 04/08/21 [Rx Confirmed 06/27/21 Last Taken 06/26/21 21:00] blood sugar diagnostic #200 ea 04/08/21 [Rx Confirmed 06/27/21 Last Taken Unknown] insulin degludec 100 unit/mL (3 mL) subcutaneous pen 13 unit SUBCUT QHS #12 ml 04/08/21 [Rx Confirmed 06/27/21 Last Taken 06/26/21 20:00] omeprazole 20 mg capsule,delayed release 20 mg PO QDAY #30 cap 04/08/21 [Rx Confirmed 06/27/21 Last Taken 06/26/21 09:00] ondansetron HCl 4 mg tablet 4 mg PO Q6H PRN #30 tab 04/08/21 [Rx Confirmed 06/27/21 Last Taken Unknown] pen needle, diabetic 32 gauge x 3/16" #100 ea 04/08/21 [Rx Confirmed 06/27/21 Last Taken Unknown] prasugrel 10 mg tablet See Rx Instructions .ROUTE .COMPLEX tab 04/21/21 [History Confirmed 06/27/21 Last Taken 06/25/21 09:00] prednisone 5 mg tablet 5 mg PO QDAY #90 tab 04/21/21 [Rx Confirmed 06/27/21 Last Taken 06/26/21 15:00] tacrolimus 0.75 mg tablet,extended release 24 hr 0.75 mg PO QAM #90 tab 04/21/21 [Rx Confirmed 06/27/21 Last Taken 06/26/21 09:00] tacrolimus 1 mg tablet,extended release 24 hr 1 mg PO QAM #90 tab 04/21/21 [Rx Confirmed 06/27/21 Last Taken 06/26/21 09:00] amlodipine 10 mg PO QDAY 06/27/21 [History Confirmed 06/27/21 Last Taken 06/26/21 09:00] insulin lispro [Humalog KwikPen Insulin] See Rx Instructions .ROUTE .COMPLEX 06/27/21 [History Confirmed 06/27/21 Last Taken Unknown] mycophenolate mofetil [CellCept] 250 mg PO BID 06/27/21 [History Confirmed 06/27/21 Last Taken 06/26/21 21:00] phenolphthalein-docusate sod 100 tab PO DAILY 06/27/21 [History Confirmed 06/27/21 Last Taken Unknown] COURSE Hospital Course Hospital course: Patient was admitted on June 27, 2021 for fluid overload. Patient has a history of end-stage renal disease status post kidney transplant and it is now apparent that her transplanted kidney is failing thus requiring hemodialysis. Multiple rounds of hemodialysis were performed and investigations for the underlying cause of transplant failure including SPEP, light chain r atio, inflammatory markers, cryoglobulins were also checked and without of those were pending at the moment. Fat pad biopsy was also performed to rule out the possibility of amyloidosis. Patient has reached clinical stability by June 30, 2021, and currently on 4 L of supplemental oxygen which is at her baseline. As a result, decision was made to discharge her home with follow-up appointment with PCP, crm marketing specialist Dr. Hedrick, and hemodialysis chair time set for her with Dr. Pineda. All questions were answered prior to patient being physically discharged. Discharge diagnosis: Fluid overload, failing transplanted kidney Time Spent with Patient Time attestation: Total time spent providing and/or coordinating discharge services: Patient was admitted on June 27, 2021 for fluid overload. Patient has a history of end-stage renal disease status post kidney transplant and it is now apparent that her transplanted kidney is failing thus requiring hemodialysis. Multiple rounds of hemodialysis were performed and investigations for the underlying cause of transplant failure including SPEP, light chain ratio, inflammatory markers, cryoglobulins were also checked and without of those were pending at the moment. Fat pad biopsy was also performed to rule out the possibility of amyloidosis. Patient has reached clinical stability by June 30, 2021, and currently on 4 L of supplemental oxygen which is at her baseline. As a result, decision was made to discharge her home with follow-up appointment with PCP, crm marketing specialist Dr. Hedrick, and hemodialysis chair time set for her with Dr. Pineda. All questions were answered prior to patient being physically discharged. EXAM Constitutional Vitals: Temp Pulse Resp BP Pulse Ox 37.1 C 86 20 148/66 97 06/30/21 12:00 06/30/21 12:00 06/30/21 12:00 06/30/21 12:06/30/21 12:00 General appearance: cooperative and no acute distress Head Head exam: Present atraumatic and normocephalic Eye Eye exam: Present EOMI and PERRL ENT ENT exam: Present mucous membranes moist, normal exam and normal external ear exam Neck Neck exam: Present normal inspection; Absent lymphadenopathy, tenderness and thyromegaly Respiratory Respiratory exam: Absent accessory muscle use, respiratory distress and wheezes Cardiovascular Cardiovascular exam: Present normal rate and rhythm; Absent JVD GI/Abdominal GI/Abdominal exam: Present normal bowel sounds and soft; Absent organomegaly and tenderness Extremities Exam Extremities exam: Present full ROM, normal capillary refill and normal inspection; Absent tenderness Additional comments: Right arm AV fistula with palpable thrill. Neurological Exam Neurological exam: Present alert, CN II-XII intact and oriented X3; Absent motor sensory deficit Psychiatric Psychiatric exam: Present normal affect and normal mood; Absent anxious and depressed Skin Skin exam: Present dry and intact Discharge Data Data Completed and Pending Labs on day of discharge: Labs from last 24 hours 06/30/21 06/29/21 05:55 06:02 Sodium 127 L Potassium 4.4 Chloride 91 L Carbon Dioxide 24 Anion Gap 12.0 BUN 29 H Creatinine 1.6 H GFR Calculation 33 Glucose 95 Calcium 9.6 Hep B Core Total Ab Non-reactive Discharge Plan Patient/Caregiver Discharge Instructions Activity: increase activity as tolerated Diet: Renal/Consistent Carbs Prescriptions: Continued multivitamin Tablet 1 tab PO QDAY RF: 0 atorvastatin 40 mg tablet 40 mg PO QDAY Qty: 30 RF: 2 (DME) blood sugar diagnostic Strip See Rx Instructions .Route Qty: 200 RF: 5 Tresiba FlexTouch U-100 100 unit/mL (3 mL) insulin pen 13 unit subcut QHS Qty: 12 RF: 0 omeprazole 20 mg capsule,delayed release(DR/EC) 20 mg PO QDAY Qty: 30 RF: 2 ondansetron HCl [Zofran] 4 mg tablet 4 mg PO Q6H PRN (Reason: nausea and vomiting) Qty: 30 RF: 0 (DME) pen needle, diabetic [Comfort EZ Pen [place]] 32 gauge x 3/16" needle See Rx Instructions .Route Qty: 100 RF: 5 Envarsus XR 1 mg tablet extended release 24 hr 1 mg PO QAM Qty: 90 RF: 3 Envarsus XR 0.75 mg tablet extended release 24 hr 0.75 mg PO QAM Qty: 90 RF: 3 prednisone 5 mg tablet 5 mg PO QDAY Qty: 90 RF: 3 aspirin 81 mg Tablet 81 mg PO QDAY RF: 0 fluconazole 200 mg tablet 200 mg PO BID RF: 0 prasugrel [Effient] 10 mg tablet See Rx Instructions .ROUTE .COMPLEX RF: 0 mycophenolate mofetil [CellCept] 250 mg capsule 250 mg PO BID RF: 0 insulin lispro [Humalog KwikPen Insulin] 100 unit/mL insulin pen See Rx Instructions .ROUTE .COMPLEX RF: 0 phenolphthalein-docusate sod 65-100 mg Tablet 100 tab PO DAILY RF: 0 amlodipine 10 mg tablet 10 mg PO QDAY RF: 0 Discontinued bumetanide 1 mg Tablet 1 mg PO QDAY PRN (Reason: fluid overload) RF: 0 bumetanide 1 mg tablet 1 mg PO BID RF: 0 Follow Up Plan Follow up with: Chris Dye MD [Primary Care Provider] - Patient Disposition: Home, Self-Care Prognosis: Fair Rehab Potential: Good I certify that the patient requires SNF services: No Overall status at discharge: patient is progressing back to baseline Discharge Orders: Discharge Order (Routine); Ordered 06/30/21 Ordered By: Deangelo FERGUSON VTE Deep Vein Thrombosis/Pulmonary Embolism Present on Admission: No
--- NOTE | 2021-06-30 14:47 | General Surgery Procedure Note ---
Date of procedure: Note initiated : 06/30/21 at 2:43 pm Service Date, if different from initiated Date: [] Pre-op diagnosis: Chronic kidney disease 4; congestive heart failure; diabetes mellitus Post-op diagnosis: other (Chronic kidney disease 4; congestive heart failure; diabetes mellitus) Procedure: Abdominal fat pad biopsy x2 Findings: Normal-appearing subcutaneous fat in right lower quadrant of abdominal wall Anesthesia: local Surgeon: London Dow Pathology: other (Abdominal wall fat pad biopsy) Description of procedure: After consent was obtained the right lower quadrant of the abdominal wall was prepped and draped with Hibiclens. Local infiltration was carried out with 10 cc of 1% Xylocaine. Two 8 mm course of skin and subcutaneous fat were taken and sent for pathology. The resultant incision was closed with 2-0 Prolene and covered with 2 x 2 gauze and Tegaderm. Condition: stable Disposition: floor
[2021-06-30] MEDS: predniSONE 5 MG TABLET PO SCH (14:56)
--- NOTE | 2021-06-30 18:52 | Nephrology Progress Note ---
SUBJECTIVE Subjective Patient information: Note initiated : 06/30/21 at 6:47 pm Service Date, if different from initiated Date: [] Patient: Rain Aj 66 y/o F admitted on 06/27/21 for Fluid overload. Chief Complaint: [SOB] Slowly failing cadaveric renal transplant. Prior nephrology follow-up [facility] Seen by Dr. Wise outpatient. 7 worsening VELAZQUEZ and shortness of breath already on 5 L. Says in the past she is required isolated all filtration for a couple of days at which time she is breathing better and is maintained on her usual immunosuppression regiment and not requiring dialysis. Seen by another unusual to me but I must admit she was refractory to high-dose bumetanide up to 5 mg IV as a bolus along with metolazone, therefore I performed isolated all filtration on day 1 and the following day an hour of hemodialysis along with 3 total hours of isolated ultrafiltration. Vital Signs Temp Pulse Resp BP BP Pulse Ox 06/30/21 16:00 37.1 C 83 20 134/64 96 06/30/21 12:00 37.1 C 86 20 148/66 97 06/30/21 07:42 36.7 C 89 20 141/66 95 06/30/21 04:50 36.8 C 87 18 150/66 96 06/29/21 23:23 37.1 C 88 18 137/69 95 06/29/21 19:00 36.8 C 86 22 141/67 95 Laboratory Tests 06/30/21 05:55 Sodium 127 L Potassium 4.4 Chloride 91 L Carbon Dioxide 24 Anion Gap 12.0 BUN 29 H Creatinine 1.6 H Glucose 95 Calcium 9.6 Serum creatinine Discharge the results of a abdominal fat pad punch biopsy to look for amyloidosis. Her SPEP was negative. She probably has congestive heart failure from valvular heart disease. Pending at the time of discharge was a tacrolimus level. We will arrange for an outpatient pyrophosphate scan to look for cardiac amyloid. Primary digital service engineer is Dr. Wise. Fruit Grader Operator Dr. Osesa Hedrick Primary Care Physician Chris Dey M.D. Constitutional Vitals: Vital Signs Temp Pulse Resp BP Pulse Ox 37.1 C 83 20 134/64 96 06/30/21 16:00 06/30/21 16:00 06/30/21 16:00 06/30/21 16:00 06/30/21 16:00 Period Temp Pulse Resp BP Sys/Delgado Pulse Ox Last 24 Hr 36.7 C-37.1 C 83-89 18-22 134-150/64-69 95-97 Intake and Output 06/30/21 06/30/21 06/30/21 05:59 13:59 21:59 Intake Total 180 120 180 Output Total 250 Balance 180 -130 180 Intake & Output: Intake & Output 06/30/21 06/30/21 06/30/21 05:59 13:59 21:59 Intake Total 180 120 180 Output Total 250 Balance 180 -130 180 Intake: Oral 180 120 180 Output: Void Amount 250 Other: Meal Breakfast Percent of Meal Consumed 100% Feeding Ability Independent Urine Color Dark Yellow # Voids 1 General appearance: cooperative and mild distress Head Head exam: Present atraumatic and normocephalic ENT ENT exam: Present mucous membranes dry Neck Neck exam: Present full ROM and meningismus Respiratory Respiratory exam: Present normal respiratory exam, accessory muscle use, decreased breath sounds and prolonged expiratory phase Cardiovascular Cardiovascular exam: Present irregular rhythm, JVD, +S1, +S2 and systolic murmur GI/Abdominal GI/Abdominal exam: Present soft and diminished bowel sounds Extremities Exam Extremities exam: Present neurovascular intact; Absent calf tenderness and tenderness Additional comments: Left AV fistula with good bruit and thrill Neurological Exam Neurological exam: Present alert, CN II-XII intact and oriented X3 Psychiatric Psychiatric exam: Present anxious Skin Skin exam: Present dry and warm A/P Narrative A/P Narrative: A/P Assessment and plan (1) ESRD (end stage renal disease): (2) Heart failure with reduced ejection fraction: (3) Pulmonary hypertension assoc with unclear multi-factorial mechanisms: (4) Hyponatremia with excess extracellular fluid volume: (5) Chronic respiratory failure with hypoxia: (6) Status post kidney transplant Narrative A/P Narrative: Assessment and plan (1) Status post kidney transplant: Assessment and plan: GFR stable relative to 02/[address] Wise Continue 1.75 mg qAM of Tacrolimus from pt home Rx supply Check [place] level Continue cellcept and prednisone Trend labs (2) Heart failure with reduced ejection fraction: Assessment and plan: No tamponade or effusion Restrictive physiology on ECHO Given the hx of yearly U/F for decompensated CHF...she would have to be way to the RIGHT on the Star[place] curve. The lack of urine production would agree with this. Isolated U/F tonight SPEP and light chain ratio, Inflammatory biomarkers and cryoglobulins in the AM Fat pad biopsy to r/o Amyloid Schedule out patient pyrophosphate scan with NUC med at [facility] Follow up with Dr Oseas Hedrick at [facility] cardiology (3) Ischemic cardiomyopathy: Narrative A/P Narrative: 1. Acute U/F tonight to push back to left on starling curve 2. Work up cardiac amyloid as restrictive CHF pattern on ECHO and a chronic infection (Crypto) (4) Hyponatremia Short Tx ordered with HD PO fluid restrict D/C Diuretics as she is refractory to huge dose Bumex and metolazone (5) ESRD Arrange out patient Tx Hepatitis serologies Will be Dr Wise's patient Discharge Medications aspirin 81 mg PO QDAY 02/12/21 [History Confirmed 06/27/21 Last Taken 06/26/21 21:00] fluconazole 200 mg tablet 200 mg PO BID tab 04/07/21 [History Confirmed 06/27/21 Last Taken 06/26/21 21:00] multivitamin 1 tab PO QDAY 04/07/21 [History Confirmed 06/27/21 Last Taken 06/26/21 15:00] atorvastatin 40 mg tablet 40 mg PO QDAY #30 tab 04/08/21 [Rx Confirmed 06/27/21 Last Taken 06/26/21 21:00] blood sugar diagnostic #200 ea 04/08/21 [Rx Confirmed 06/27/21 Last Taken Unknown] insulin degludec 100 unit/mL (3 mL) subcutaneous pen 13 unit SUBCUT QHS #12 ml 04/08/21 [Rx Confirmed 06/27/21 Last Taken 06/26/21 20:00] omeprazole 20 mg capsule,delayed release 20 mg PO QDAY #30 cap 04/08/21 [Rx Confirmed 06/27/21 Last Taken 06/26/21 09:00] ondansetron HCl 4 mg tablet 4 mg PO Q6H PRN #30 tab 04/08/21 [Rx Confirmed Last Taken Unknown] pen needle, diabetic 32 gauge x 3/16" #100 ea 04/08/21 [Rx Confirmed 06/27/21 Last Taken Unknown] prasugrel 10 mg tablet See Rx Instructions .ROUTE .COMPLEX tab 04/21/21 [Hi story Confirmed 06/27/21 Last Taken 06/25/21 09:00] prednisone 5 mg tablet 5 mg PO QDAY #90 tab 04/21/21 [Rx Confirmed 06/27/21 Last Taken 06/26/21 15:00] tacrolimus 0.75 mg tablet,extended release 24 hr 0.75 mg PO QAM #90 tab 04/21/21 [Rx Confirmed 06/27/21 Last Taken 06/26/21 09:00] tacrolimus 1 mg tablet,extended release 24 hr 1 mg PO QAM #90 tab 04/21/21 [Rx Confirmed 06/27/21 Last Taken 06/26/21 09:00] amlodipine 10 mg PO QDAY 06/27/21 [History Confirmed 06/27/21 Last Taken 06/26/21 09:00] insulin lispro [Humalog KwikPen Insulin] See Rx Instructions .ROUTE .COMPLEX 06/27/21 [History Confirmed 06/27/21 Last Taken Unknown] mycophenolate mofetil [CellCept] 250 mg PO BID 06/27/21 [History Confirmed 06/27/21 Last Taken 06/26/21 21:00] phenolphthalein-docusate sod 100 tab PO DAILY 06/27/21 [History Confirmed 06/27/21 Last Taken Unknown] Laboratory Tests 06/28/21 06/28/21 05:38 05:38 Tacrolimus Pending IgG 655 L IgA 185 IgM 199.7 KATHERINE Interpretation Cryoglobulin Negative Complement C3 98.4 Complement C4 27.5 Free [place] LC, Quant 64.99 H Free Lambda LC, Quant 32.00 H Free [place]/Lambda Ratio 2.031 H ABD fat pad biopsy to R/O amyloid is pending. Arrange out patient nuclear med scan to r/o cardiac amyloid as an outpatient. Time Spent With Patient Time: Total time spent is greater than 50% in coordination of care (as documented) at patient's floor/unit and/or counseling patient: Total time spent with greater than 50% in coordination of care (as documented) at patient's floor/unit and/or counseling patient:: 25 - 35 minutes
[2021-07-01 09:04] LABS: Cryoglobulin Negative (Negative)
--- NOTE | 2021-07-10 10:46 | EKG ---
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
--- NOTE | 2021-07-14 16:01 | Surgical Pathology Report ---
Histology Microscopic Diagnosis Specimen A- SOFT TISSUE, ABDOMINAL FAT PAD BIOPSY: --- BENIGN SKIN AND SUBCUTANEOUS ADIPOSE TISSUE. --- NEGATIVE FOR AMYLOID DEPOSITION BY [place] RED, SEE COMMENT. Comments The specimen was sent to [facility] for amyloid testing. Please see separate report for details. Gross Description Received fresh labeled abdominal fat pad biopsy, are two punches of mosley skin, both 0.5 cm in diameter and ranging in depth from 0.4 up to 1 cm. Also in the specimen container is a 1.4 x 1 cm portion of yellow-mosley adipose tissue. The biopsies are bisected and all tissue totally submitted in one cassette. (KGW:adj) Electronically Signed Colleen Roberto MD, FCAP Electronically Signed 07/14/2021 15:59
== END 2021-06-30 17:40 | disposition home or self-care (01) | DRG 291 ==
LOC: ED 00:27 → ICU 03:24 → MEDSUR 06-28 05:00
PROVIDERS: ADMIT Internal Medicine; ATTEND Internal Medicine

== ENCOUNTER 2021-07-29 10:18 | Inpatient (IN) ==
[2021-07-29] MEDS ORDERED: MAGNESIUM SULFATE 2 GM/50 ML BAG IV PRN (10:24)
[2021-07-29] MEDS ORDERED: POTASSIUM CHLORIDE 20 MEQ TABLET PO PRN ×2 (10:24)
[2021-07-29] MEDS ORDERED: POTASSIUM CHLORIDE 40 MEQ in DEXTROSE 5% IN WATER 500 ML IV PRN (10:24)
[2021-07-29] MEDS ORDERED: POLYETHYLENE GLYCOL 3350 17 GM PACKET PO PRN (10:24)
[2021-07-29] MEDS ORDERED: ACETAMINOPHEN 325 MG TABLET PO PRN (10:24)
[2021-07-29] MEDS ORDERED: DEXTROSE 50% 50 ML VIAL IV PRN (10:24)
[2021-07-29] MEDS ORDERED: ONDANSETRON 4 MG/2 ML VIAL IV PRN (10:24)
[2021-07-29] MEDS ORDERED: SENNOSIDES 1 TABLET PO PRN (10:24)
[2021-07-29] MEDS ORDERED: DEXTROSE 31 GM ORAL.SUSP PO PRN (10:24)
[2021-07-29] MEDS ORDERED: IPRATROPIUM/ALBUTEROL 3 ML AMPUL.NEB NEB PRN (10:24)
--- NOTE | 2021-07-29 10:24 | Internal Med History&Physical ---
HPI History of Present Illness Patient information: Note initiated : 07/29/21 at 10:23 am Service Date, if different from initiated Date: [] Patient: Rain Aj a 66 y/o F admitted on for Fluid Overload. Chief Complaint: [] History of present illness: Ms. Aj is a 66 year old F Presents from dialysis center and need for acute inpatient dialysis for several days. Patient has a history of renal transplant and has a fistula but only requires hemodialysis once or twice a year per the patient due to fluid overload and pulmonary edema. She is on 5 L of oxygen at home. Patient is severely hard of hearing and a lot of history is obtained from the daughter. Daughter states that patient becomes fluid overloaded occasionally and it seems to be once a year. When this happens she will go in the hospital and the usually dialyze her for few days and that will resolve her issue. Patient was here in June for similar scenario and it sounds like she she was can be set up for outpatient dialysis but the patient did not go. Had increasing swelling in her legs. Review of Systems: Pertinent positives as above. denies headache/fever/chills/nausea/vomiting/chest or abdominal pain/diarrhea. Otherwise see above. PFSH PFSH All Active Problems (Updated 07/29/21 @ 10:39 by Anton Wise MD) Other fluid overload (Acute) Acute renal failure superimposed on stage 3b chronic kidney disease (Acute) Localized edema due to fluid overload (Chronic) Immunosuppression (Chronic) Arthritis (Acute) Skin cancer (Acute) Complication of anesthesia (Acute) Coronary artery disease (Chronic) Hypertension (Chronic) Ischemic cardiomyopathy (Chronic) Chronic respiratory failure with hypoxia (Chronic) Anemia (Chronic) Moderate protein-calorie malnutrition (Acute) Heart failure with reduced ejection fraction (Chronic) ESRD (end stage renal disease) (Chronic) Status post kidney transplant (Chronic) H/O partial thyroidectomy (Chronic) Chronic otitis media of left ear with perforated tympanic membrane (Chronic) Drainage from right ear (Chronic) 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, controlled, with neuropathy (Chronic) Shortness of breath (Acute) Plugged feeling in ear (Acute) Nose congested (Acute) Bloody nose (Acute) Cryptococcus (Acute) History of cryptococcosis (Acute) Kidney transplant status, cadaveric (Chronic) Chronic kidney disease (CKD) stage G3b/A3, moderately decreased glomerular filtration rate (GFR) between 30-44 mL/min/1.73 square meter and albuminuria creatinine ratio greater than 300 mg/g (Chronic) CHF (congestive heart failure) (Chronic) Hyponatremia (Acute) Hyponatremia with excess extracellular fluid volume (Chronic) CKD (chronic kidney disease) stage 4, GFR 15-29 ml/min (Acute) Pulmonary hypertension assoc with unclear multi-factorial mechanisms (Acute) Medical History Acute HFrEF (heart failure with reduced ejection fraction) Acute kidney injury Anemia Arthritis Blood infection Bloody nose Chronic otitis media of left ear with perforated tympanic membrane Chronic respiratory failure with hypoxia 5 L O2 Complication of anesthesia Nausea with anesthesia Coronary artery disease CABG x5 (1999) Cryptococcus Drainage from right ear Chronic ESRD (end stage renal disease) Heart failure with reduced ejection fraction History of cryptococcosis Hypertension Hypokalemia Hypomagnesemia Immunosuppression Ischemic cardiomyopathy No change in current Rx MR (+) Decompensated CHF Moderate protein-calorie malnutrition Nose congested Plugged feeling in ear Shortness of breath Skin cancer Type 1 diabetes mellitus with retinopathy Type 1 diabetes, controlled, with neuropathy Surgical History H/O partial thyroidectomy History of section 1971 & 1973 History of coronary angioplasty with insertion of stent (~2017) History of coronary artery bypass graft (~2001) x5 History of hysterectomy (~1988) History of mitral valve repair History of partial thyroidectomy (~2005) and partial parathyroidectomy History of renal transplant (~2017) Status post kidney transplant 01/2018 Family History Mother Skin cancer Type 2 diabetes mellitus Father Type 2 diabetes mellitus Grandmother Type 2 diabetes mellitus Paternal Social History marital status: smoking status: Former smoker quit date: 11/06/99 pack-years: 5 alcohol intake frequency: former alcohol drinker substance use type: does not use MEDS/ALLERGIES Home Medications and Allergies Home Medications Medication Instructions Recorded Confirmed Type aspirin 81 mg PO QDAY 02/12/21 07/29/21 History fluconazole 200 mg tablet 200 mg PO BID tab 04/07/21 07/29/21 History multivitamin 1 tab PO QDAY 04/07/21 07/29/21 History atorvastatin 40 mg tablet 40 mg PO QDAY #30 tab 04/08/21 07/29/21 Rx blood sugar diagnostic #200 ea 04/08/21 07/29/21 Rx insulin degludec 100 unit/mL (3 13 unit SUBCUT QHS #12 ml 04/08/21 07/29/21 Rx mL) subcutaneous pen omeprazole 20 mg capsule,delayed 20 mg PO QDAY #30 cap 04/08/21 07/29/21 Rx release pen needle, diabetic 32 gauge x #100 ea 04/08/21 07/29/21 Rx 3" prasugrel 10 mg tablet See Rx Instructions .ROUTE 04/21/21 07/29/21 History .COMPLEX tab prednisone 5 mg tablet 5 mg PO QDAY #90 tab 04/21/21 07/29/21 Rx tacrolimus 0.75 mg tablet,extended 0.75 mg PO QAM #90 tab 04/21/21 07/29/21 Rx release 24 hr tacrolimus 1 mg tablet,extended 1 mg PO QAM #90 tab 04/21/21 07/29/21 Rx release 24 hr amlodipine 10 mg PO QDAY 06/27/21 07/29/21 History mycophenolate mofetil [CellCept] 250 mg PO BID 06/27/21 07/29/21 History phenolphthalein-docusate sod 100 tab PO DAILY 06/27/21 07/29/21 History bumetanide 1 mg tablet 1 mg PO BID 07/06/21 07/29/21 History insulin lispro 100 unit/mL See Rx Instructions .ROUTE 07/20/21 07/29/21 Rx subcutaneous pen .COMPLEX #27 ml Allergies Allergy/AdvReac Type Severity Reaction Status Date / Time anti-thymocyte globulin, Allergy Severe Pain and Verified 07/29/21 09:10 rabbit swelling [From Thymoglobulin] of heart,possible piperacillin [From Zosyn] Allergy Mild Rash Verified 07/29/21 09:10 tazobactam [From Zosyn] Allergy Mild Rash Verified 07/29/21 09:10 cefepime [From Maxipime] AdvReac Severe Seizure Verified 07/29/21 09:10 EXAM Constitutional Exam: General: Alert, Awake, No acute Distress Eyes/N/T: EOMI, PERRL, Head/Neck: neck supple, normocephalic atraumatic CV: RRR, 2/6SM, normal s1/s2 Pulm: Diminished b/l bases with mild rales, no wheezing, labored Abd: soft, nontender, +BS x4 Ext: no clubbing/cyanosis, 2-3+ b/l LE edema. LUE fistula Neuro: Alert, no focal deficits, moves all extremities, CN 2-12 grossly intact, symmetrical strength b/l upper/lower, sensations intact b/l upper/lower Skin: warm/dry A/P Narrative A/P Narrative: A: *Volume overloaded with acute on chronic diastolic CHF w/pulmonary edema: -pt states this seems to happen once a year and she usually goes into the hospital for dialysis *Acute hypoxic respiratory failure: 2/ above - *CLARY on CKD IIIb-IV: h/o HD but received kidney transplant 2017 *Kidney transplant: on Myco/Tac/Pred *Hyponatremia, chronic: *O2-dependent @home (5L): *DM: *HTN/HLD: *Anemia, chronic: *GERD: *CAD w/CABG: *Hearing impairment: P: -Nephrology for HD -O2 supp, IS -basal and SSI -cont transplant meds -cont ASA/effient/Statin -pt/ot -ppx: heparin/ home ppi DNR Time Spent With Patient Time: Total time spent is greater than 50% in coordination of care (as documented) at patient's floor/unit and/or counseling patient:
--- NOTE | 2021-07-29 10:47 | Nephrology Consult Note ---
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 cc:: CC: Pato Welsh Constitutional Constitutional: Present fatigue and weakness EENT Nose, mouth and throat: Absent nasal discharge and sore throat Cardiovascular Cardiovascular: Present dyspnea on exertion and leg edema; Absent chest pain Respiratory Respiratory: Present dyspnea on exertion Gastrointestinal Gastrointestinal: Absent abdominal pain, nausea and vomiting Genitourinary Genitourinary: Absent dysuria and hematuria Integumentary Integumentary: Absent rash and wounds Neurological Neurological: Absent confusion Psychiatric Psychiatric: Absent anxiety and panic attacks Hematologic/Lymphatic Hematologic/Lymphatic: Absent easy bleeding and easy bruising Allergic/Immunologic Allergic/Immunologic: Absent tongue swelling and uticaria PFSH PFSH All Active Problems (Updated 07/29/21 @ 10:39 by Anton Wise MD) Other fluid overload (Acute) Acute renal failure superimposed on stage 3b chronic kidney disease (Acute) Localized edema due to fluid overload (Chronic) Immunosuppression (Chronic) Arthritis (Acute) Skin cancer (Acute) Complication of anesthesia (Acute) Coronary artery disease (Chronic) Hypertension (Chronic) Ischemic cardiomyopathy (Chronic) Chronic respiratory failure with hypoxia (Chronic) Anemia (Chronic) Moderate protein-calorie malnutrition (Acute) Heart failure with reduced ejection fraction (Chronic) ESRD (end stage renal disease) (Chronic) Status post kidney transplant (Chronic) H/O partial thyroidectomy (Chronic) Chronic otitis media of left ear with perforated tympanic membrane (Chronic) Drainage from right ear (Chronic) 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, controlled, with neuropathy (Chronic) Shortness of breath (Acute) Plugged feeling in ear (Acute) Nose congested (Acute) Bloody nose (Acute) Cryptococcus (Acute) History of cryptococcosis (Acute) Kidney transplant status, cadaveric (Chronic) Chronic kidney disease (CKD) stage G3b/A3, moderately decreased glomerular filtration rate (GFR) between 30-44 mL/min/1.73 square meter and albuminuria creatinine ratio greater than 300 mg/g (Chronic) CHF (congestive heart failure) (Chronic) Hyponatremia (Acute) Hyponatremia with excess extracellular fluid volume (Chronic) CKD (chronic kidney disease) stage 4, GFR 15-29 ml/min (Acute) Pulmonary hypertension assoc with unclear multi-factorial mechanisms (Acute) Medical History Acute HFrEF (heart failure with reduced ejection fraction) Acute kidney injury Anemia Arthritis Blood infection Bloody nose Chronic otitis media of left ear with perforated tympanic membrane Chronic respiratory failure with hypoxia 5 L O2 Complication of anesthesia Nausea with anesthesia Coronary artery disease CABG x5 (1999) Cryptococcus Drainage from right ear Chronic ESRD (end stage renal disease) Heart failure with reduced ejection fraction History of cryptococcosis Hypertension Hypokalemia Hypomagnesemia Immunosuppression Ischemic cardiomyopathy No change in current Rx MR (+) Decompensated CHF Moderate protein-calorie malnutrition Nose congested Plugged feeling in ear Shortness of breath Skin cancer Type 1 diabetes mellitus with retinopathy Type 1 diabetes, controlled, with neuropathy Surgical History H/O partial thyroidectomy History of section 1971 & 1973 History of coronary angioplasty with insertion of stent (~2017) History of coronary artery bypass graft (~2001) x5 History of hysterectomy (~1988) History of mitral valve repair History of partial thyroidectomy (~2005) and partial parathyroidectomy History of renal transplant (~2017) Status post kidney transplant 01/2018 Family History Mother Skin cancer Type 2 diabetes mellitus Father Type 2 diabetes mellitus Grandmother Type 2 diabetes mellitus Paternal Social History marital status: smoking status: Former smoker quit date: 11/06/99 pack-years: 5 alcohol intake frequency: former alcohol drinker substance use type: does not use MEDS/ALLERGIES Home Medications and Allergies Home Medications Medication Instructions Recorded Confirmed Type aspirin 81 mg PO QDAY 02/12/21 07/29/21 History fluconazole 200 mg tablet 200 mg PO BID tab 04/07/21 07/29/21 History multivitamin 1 tab PO QDAY 04/07/21 07/29/21 History atorvastatin 40 mg tablet 40 mg PO QDAY #30 tab 04/08/21 07/29/21 Rx blood sugar diagnostic #200 ea 04/08/21 07/29/21 Rx insulin degludec 100 unit/mL (3 13 unit SUBCUT QHS #12 ml 04/08/21 07/29/21 Rx mL) subcutaneous pen omeprazole 20 mg capsule,delayed 20 mg PO QDAY #30 cap 04/08/21 07/29/21 Rx release pen needle, diabetic 32 gauge x #100 ea 04/08/21 07/29/21 Rx 3" prasugrel 10 mg tablet See Rx Instructions .ROUTE 04/21/21 07/29/21 History .COMPLEX tab prednisone 5 mg tablet 5 mg PO QDAY #90 tab 04/21/21 07/29/21 Rx tacrolimus 0.75 mg tablet,extended 0.75 mg PO QAM #90 tab 04/21/21 07/29/21 Rx release 24 hr tacrolimus 1 mg tablet,extended 1 mg PO QAM #90 tab 04/21/21 07/29/21 Rx release 24 hr amlodipine 10 mg PO QDAY 06/27/21 07/29/21 History mycophenolate mofetil [CellCept] 250 mg PO BID 06/27/21 07/29/21 History phenolphthalein-docusate sod 100 tab PO DAILY 06/27/21 07/29/21 History bumetanide 1 mg tablet 1 mg PO BID 07/06/21 07/29/21 History insulin lispro 100 unit/mL See Rx Instructions .ROUTE 07/20/21 07/29/21 Rx subcutaneous pen .COMPLEX #27 ml Allergies Allergy/AdvReac Type Severity Reaction Status Date / Time anti-thymocyte globulin, Allergy Severe Pain and Verified 07/29/21 09:10 rabbit swelling [From Thymoglobulin] of heart,possible piperacillin [From Zosyn] Allergy Mild Rash Verified 07/29/21 09:10 tazobactam [From Zosyn] Allergy Mild Rash Verified 07/29/21 09:10 cefepime [From Maxipime] AdvReac Severe Seizure Verified 07/29/21 09:10 Physical Examination General Appearance General appearance: appears started age and fatigue EENT EENT: mucous membranes dry Neck Neck: supple Respiratory Respiratory: rales Cardiovascular Cardiology: edema, regular rate and regular rhythm Gastrointestinal Gastrointestinal: no tenderness Integumentary Integumentary: no rash and warm and dry Neurologic Neurologic: no focal deficit and alert and oriented x3 Musculoskeletal Musculoskeletal: no deformities Psychiatric Psychiatric: mood/affect appropriate and cooperative Results Lab Results Result Diagrams: 07/29/21 13:04 A/P Assessment and plan (1) Acute renal failure superimposed on stage 3b chronic kidney disease: Assessment and plan: Rain Aj is a 65-year-old female with diabetes mellitus type 1, coronary artery disease s/p CABG and s/p MVR, chronic hypoxic respiratory failure on continuous oxygen (at 5 L/min), hypertension, kidney transplant, 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 Fluid overload and hypertension, not adequately controlled. She takes Amlodipine 10 mg daily, Carvedilol 3.125 mg twice daily, Bumetanide 1 mg two to three times daily. She requires ultrafiltration/dialysis on and off. She was recently admitted to [facility] (06/27/21 to 06/30/21) for fluid overload requiring hemodialysis x 2. She declined initiation of outpatient hemodialysis. She had a similar admission in the past which did not require chronic dialysis. Kidney transplant, donor on 01/21/18, complicated requiring hemodialysis until 08/31/18. Previous transplant facility maintenance helper Dr. Hernandez ([phone]). End stage renal disease due to diabetic nephropathy. Baseline serum creatinine ~1.4. Immunosuppression: Tacrolimus (Envarsus XR) 1.75 mg daily, Mycophenolate 250 mg twice daily (reduced due to disseminated cryptococcal infection), Pre dnisone 5 mg daily. Immunizations: Influenza yes, Covid no. Chronic kidney disease stage G3b/A3 with persistent non-nephrotic range proteinuria, suspected acute kidney injury. Work up: Labs on 06/30/21: Serum sodium 127, potassium 4.4, CO2 24, creatinine 1.6, eGFR 33, calcium 9.6. Abdominal fat pad biopsy on 06/30/21: Negative for amyloid. Labs on 06/28/21: tacrolimus 6.3, serum free kappa/lambda light chain ratio 2.031, SPEP/KATHERINE no monoclonal protein, C3 98.4, C4 27.5, cryoglobulin negative, ESR 17. Echo on 06/27/21: LVEF normal. Labs on 06/27/21: WBC 9.5, hemoglobin 11.0, PLT 467, HBsAg negative. Labs on 06/29/21: anti-HCV Ab non reactive. Recommendations/Plan: Acute hemodialysis with ultrafiltration (1 hour hemodialysis 2 hours ultrafiltration) daily for 3 days through left arm AV fistula. The patient seen and evaluated during dialysis. Labs before dialysis with sample from the dialysis nurse. She may use her own tacrolimus and insulin that are not available in hospital pharmacy. Avoid NSAIDs, nephrotoxic medications and IV contrast. Status: Acute (2) Other fluid overload: Status: Acute (3) Kidney transplant status, cadaveric: Status: Chronic (4) Hyponatremia: Status: Acute Time Spent With Patient Time: Total time spent is greater than 50% in coordination of care (as documented) at patient's floor/unit and/or counseling patient:
[2021-07-29] MEDS: INSULIN LISPRO 1 UNIT/0.01 ML UNIT SQ SCH ×3 (11:30→21:26)
[2021-07-29 13:51] LABS: Blood Urea Nitrogen 25 mg/dL (8-23); Calcium 9.2 mg/dL (8.6-10.4); Carbon Dioxide 21 mmol/L (22-30); Chloride 94 mmol/L (96-108); Glomerular Filtration Rate 52; Glucose 121 mg/dL (70-105); Phosphorous 2.7 mg/dL (2.5-4.5)
[2021-07-29] MEDS: 0.9 % SODIUM CHLORIDE 10 ML SYRINGE IV SCH ×2 (14:03→21:28)
[2021-07-29] MEDS ORDERED: [UNRECOGNIZED DRUG - OTHER] PO PRN (17:32)
[2021-07-29] MEDS ORDERED: DOCUSATE SOD PO PRN (17:32)
[2021-07-29] MEDS: HEPARIN 5,000 UNIT/ML VIAL SQ SCH (21:27)
[2021-07-29] MEDS: BUMETANIDE 1 MG TABLET PO SCH (21:27)
[2021-07-29] MEDS: ASPIRIN 81 MG TAB.CHEW PO SCH (21:27)
[2021-07-29] MEDS: MYCOPHENOLATE 250 MG CAPSULE PO SCH (21:27)
[2021-07-29] MEDS: DOCUSATE SODIUM 100 MG CAPSULE PO SCH (21:27)
[2021-07-29] MEDS: INSULIN SUB-Q SCH (21:28)
[2021-07-29] MEDS: INSULIN DEGLUDEC 100 UNIT/ML SUB-Q SCH (21:28)
[2021-07-30] MEDS: 0.9 % SODIUM CHLORIDE 10 ML SYRINGE IV SCH ×2 (04:05→14:33)
--- NOTE | 2021-07-30 07:53 | Internal Med Progress Note ---
SUBJECTIVE Subjective Patient information: Note initiated : 07/30/21 at 7:52 am Service Date, if different from initiated Date: [] Patient: Rain Aj a 66 y/o F admitted on 07/29/21 for Fluid Overload. Chief Complaint: [] Interval history: History of present illness: Ms. Aj is a 66 year old F Presents from dialysis center and need for acute inpatient dialysis for several days. Patient has a history of renal transplant and has a fistula but only requires hemodialysis once or twice a year per the patient due to fluid overload and pu lmonary edema. She is on 5 L of oxygen at home. Patient is severely hard of hearing and a lot of history is obtained from the daughter. Daughter states that patient becomes fluid overloaded occasionally and it seems to be once a year. When this happens she will go in the hospital and the usually dialyze her for few days and that will resolve her issue. Patient was here in June for similar scenario and it sounds like she she was can be set up for outpatient dialysis but the patient did not go. Had increasing swelling in her legs. 07/30 Patient breathing better today feeling better and currently getting second session of dialysis. Review of Systems: denies headache/fever/chills/nausea/vomiting/chest or abdominal pain/cough/dyspnea/diarrhea. Otherwise see above. Constitutional Vitals: Vital Signs Temp Pulse Resp BP Pulse Ox 97.5 F 93 H 22 140/73 97 07/30/21 04:55 07/30/21 07:26 07/30/21 04:00 07/30/21 07:26 07/30/21 06:15 Period Temp Pulse Resp BP Sys/Delgado Pulse Ox Last 24 Hr 97.5 F-98.3 F 73-101 18- 119-154/52-78 94-97 Intake and Output 07/29/21 07/30/21 07/30/21 21:59 05:59 13:59 Intake Total 800 120 Output Total 3400 300 Balance -2600 -180 Weight 75.92 kg Intake & Output: Intake & Output 07/29/21 07/30/21 07/30/21 21:59 05:59 13:59 Intake Total 800 120 Output Total 3400 300 Balance -2600 -180 Weight 75.92 kg Intake: Oral 400 120 GI Tube Flush 400 Output: Void Amount 300 Hemodialysis UF 3400 Other: Meal Dinner Feeding Ability Independent # Voids 1 Exam: General: Alert, Awake, No acute Distress Eyes/N/T: EOMI, Head/Neck: neck supple, CV: RRR, 2/6SM, normal s1/s2 Pulm: Diminished b/l bases with mild rales, no wheezing, labored Abd: soft, nontender, +BS x4 Ext: no clubbing/cyanosis, 2-3+ b/l LE edema. LUE fistula Neuro: Alert, no focal deficits, moves all extremities, Skin: warm/dry OBJ DATA Labs CBC & Chem 7: 07/30/21 04:53 Labs: Abnormal Lab Results 07/29/21 13:04 Sodium 131 L Chloride 94 L Carbon Dioxide 21 L BUN 25 H Glucose 121 H Meds: Medications Acetaminophen (Acetaminophen 325 Mg Tablet) 650 mg PO Q6HP PRN PRN Reason: PAIN/FEVER > 101 Albuterol/Ipratropium (Ipratropium/Albuterol 3 Ml Ampul.Neb) 3 ml NEB Q4HP PRN PRN Reason: Shortness Of Breath Amlodipine Besylate (Amlodipine 10 Mg Tablet) 10 mg PO 0900 [facility] Aspirin (Aspirin 81 Mg Tab.Chew) 81 mg PO 2100 [facility] Last Admin: 07/29/21 21:27 Dose: 81 mg Documented by: Atorvastatin Calcium (Atorvastatin 40 Mg Tablet) 40 mg PO QDAY [facility] Bumetanide (Bumetanide 1 Mg Tablet) 1 mg PO BID [facility] Last Admin: 07/29/21 21:27 Dose: Not Given Documented by: Dextrose (Dextrose 50% 50 Ml Vial) 0 ml IV UD PRN PRN Reason: Hypoglycemia Diagnostic Test (Pha) (Accu-Chek 1 Each Strip) 1 each FS ACHS [facility] Last Admin: 07/29/21 19:58 Dose: 1 each Documented by: Docusate Sodium (Docusate Sodium 100 Mg Capsule) 100 mg PO BID [facility] Last Admin: 07/29/21 21:27 Dose: Not Given Documented by: Glucose (Dextrose 31 Gm Oral.Susp) 15 gm PO PRN PRN PRN Reason: Hypoglycemia Heparin Sodium (Porcine) (Heparin 5,000 Unit/Ml Vial) 5,000 unit SQ Q12 [facility] Last Admin: 07/29/21 21:27 Dose: Not Given Documented by: Potassium Chloride 40 meq/ (Dextrose) 520 mls @ 130 mls/hr IV UD PRN PRN Reason: Potassium < 3 Magnesium Sulfate (Magnesium Sulfate) 2 gm in 50 mls @ 50 mls/hr IV UD PRN PRN Reason: Magnesium </= 1.6 Insulin Human Lispro (Insulin Lispro 1 Unit/0.01 Ml Unit) 0 unit SQ ACHS [facility]; Protocol Last Admin: 07/29/21 21:26 Dose: 2 units Documented by: Mycophenolate Mofetil (Mycophenolate 250 Mg Capsule) 250 mg PO BID [facility] Last Admin: 07/29/21 21:27 Dose: 250 mg Documented by: Omeprazole (Omeprazole 20 Mg Capsule) 20 mg PO QDAY [facility] Ondansetron HCl (Ondansetron 4 Mg/2 Ml Vial) 4 mg IV Q4HP PRN PRN Reason: Nausea And Vomiting Insulin Degludec [ Tresiba Flextouch U- 100] 100 Unit/Ml Insulin Pen 13 dose SUB-Q QHS [facility] Last Admin: 07/29/21 21:28 Dose: 13 dose Documented by: Phenolphthalein- Docusate Sod 65-100 Mg Tablet 1 dose PO DAILYP PRN PRN Reason: Constipation Prasugrel [Effient] (10 Mg Tablet) 0.5 dose PO MoWeFr@0900 [facility] Tacrolimus [Envarsus Xr] 0.75 Mg Tablet Extended Release 1 dose PO QAM [facility] Tacrolimus [Envarsus Xr] 1 Mg Tablet Extended Release 1 dose PO QAM [facility] Polyethylene Glycol (Polyethylene Glycol 3350 17 Gm Packet) 17 gm PO DAILYP PRN PRN Reason: Constipation Potassium Chloride (Potassium Chloride 20 Meq Tablet) 40 meq PO UD PRN PRN Reason: Potssium is 3-3.5 Potassium Chloride (Potassium Chloride 20 Meq Tablet) 40 meq PO UD PRN PRN Reason: Potassium < 3 Prednisone (Prednisone 5 Mg Tablet) 5 mg PO 1500 [facility] Senna (Sennosides 1 Tablet) 2 tab PO DAILYP PRN PRN Reason: Constipation Sodium Chloride (0.9 % Sodium Chloride 10 Ml Syringe) 10 ml IV Q8 [facility] Last Admin: 07/30/21 04:05 Dose: 10 ml Documented by: A/P Narrative A/P Narrative: A: *Volume overloaded with acute on chronic diastolic CHF w/pulmonary edema: -pt states this seems to happen once a year and she usually goes into the hospital for dialysis *Acute hypoxic respiratory failure: 2/2 above -on 4L NC *CLARY on CKD IIIb-IV: h/o HD but received kidney transplant 2018 *Kidney transplant: on Myco/Tac/Pred *Hyponatremia, chronic: *O2-dependent @home (5L): *DM: *HTN/HLD: *Anemia, chronic: *GERD: *CAD w/CABG: *Hearing impairment: P: -Nephrology for HD -O2 supp, IS -basal and SSI -cont transplant meds -cont ASA/effient/Statin -pt/ot -ppx: heparin/ home ppi DNR Time Spent With Patient Time: Total time spent is greater than 50% in coordination of care (as documented) at patient's floor/unit and/or counseling patient: QUALITY VTE Deep Vein Thrombosis/Pulmonary Embolism Present on Admission: No
--- NOTE | 2021-07-30 07:57 | Nephrology Progress Note ---
SUBJECTIVE Subjective Patient information: Note initiated : 07/30/21 at 7:54 am Patient: Rain Aj 66 y/o F admitted on 07/29/21 for Fluid Overload. Chief Complaint: Shortness of breath Pertinent ROS: Weakness Shortness of breath Edema Feeling better Constitutional Vitals: Vital Signs Temp Pulse Resp BP Pulse Ox 97.5 F 93 H 22 140/73 97 07/30/21 04:55 07/30/21 07:26 07/30/21 04:00 07/30/21 07:26 07/30/21 06:15 Period Temp Pulse Resp BP Sys/Delgado Pulse Ox Last 24 Hr 97.5 F-98.3 F 73-101 18-22 119-154/52-78 94-97 Intake and Output 07/29/21 07/30/21 07/30/21 21:59 05:59 13:59 Intake Total 800 120 Output Total 3400 300 Balance -2600 -180 Weight 167 lb 6 oz Intake & Output: Intake & Output 07/29/21 07/30/21 07/30/21 21:59 05:59 13:59 Intake Total 800 120 Output Total 3400 300 Balance -2600 -180 Weight 167 lb 6 oz Intake: Oral 400 120 GI Tube Flush 400 Output: Void Amount 300 Hemodialysis UF 3400 Other: Meal Dinner Feeding Ability Independent # Voids 1 General appearance: cooperative and no acute distress Head Head exam: Present normal inspection Eye Eye exam: Present normal appearance ENT ENT exam: Present mucous membranes moist Respiratory Respiratory exam: Absent respiratory distress Cardiovascular Cardiovascular exam: Present normal rate and rhythm GI/Abdominal GI/Abdominal exam: Present soft; Absent tenderness Extremities Exam Extremities exam: Present pedal edema; Absent joint swelling Neurological Exam Neurological exam: Present alert and oriented X3 Psychiatric Psychiatric exam: Present normal affect and normal mood Skin Skin exam: Present warm; Absent rash A/P Assessment and plan (1) Acute renal failure superimposed on stage 3b chronic kidney disease: Assessment and plan: Rain Aj is a 65-year-old female with diabetes mellitus type 1, coronary artery disease s/p CABG and s/p MVR, chronic hypoxic respiratory failure on continuous oxygen (at 5 L/min), hypertension, kidney transplant, 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 Fluid overload and hypertension, not adequately controlled. She takes Amlodipine 10 mg daily, Carvedilol 3.125 mg twice daily, Bumetanide 1 mg two to three times daily. She requires ultrafiltration/dialysis on and off. She was recently admitted to [facility] (06/27/21 to 06/30/21) for fluid overload requiring hemodialysis x 2. She declined initiation of outpatient hemodialysis. She had a similar admission in the past which did not require chronic dialysis. Kidney transplant, donor on 01/21/18, complicated requiring hemodialysis until 08/31/18. 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 End stage renal disease due to diabetic nephropathy. Baseline serum creatinine ~1.4. Immunosuppression: Tacrolimus (Envarsus XR) 1.75 mg daily, Mycophenolate 250 mg twice daily (reduced due to disseminated cryptococcal infection), Prednisone 5 mg daily. Immunizations: Influenza yes, Covid no. Chronic kidney disease stage G3b/A3 with persistent non-nephrotic range proteinuria. Work up: Labs on 06/30/21: Serum sodium 127, potassium 4.4, CO2 24, creatinine 1.6, eGFR 33, calcium 9.6. Abdominal fat pad biopsy on 06/30/21: Negative for amyloid. Labs on 06/28/21: tacrolimus 6.3, serum free kappa/lambda light chain ratio 2.031, SPEP/KATHERINE no monoclonal protein, C3 98.4, C4 27.5, cryoglobulin negative, ESR 17. Echo on 06/27/21: LVEF normal. Labs on 06/27/21: WBC 9.5, hemoglobin 11.0, PLT 467, HBsAg negative. Labs on 06/29/21: anti-HCV Ab non reactive. Progress: Hemodialysis/ultrafiltration on 07/29/21 and 07/30/21 with 6 kg total UF so far. Fluid overload, improving. Recommendations/Plan: Acute hemodialysis with ultrafiltration (1 hour hemodialysis 2 hours ultrafiltration) daily for 3 days through left arm AV fistula. The patient seen and evaluated during dialysis at 07:50. Labs before dialysis with sample from the dialysis nurse. She may use her own tacrolimus and insulin that are not available in hospital pharmacy. Avoid NSAIDs, nephrotoxic medications and IV contrast. Status: Acute (2) Other fluid overload: Status: Acute (3) Kidney transplant status, cadaveric: Status: Chronic (4) Hyponatremia: Status: Acute Time Spent With Patient Time: Total time spent is greater than 50% in coordination of care (as documented) at patient's floor/unit and/or counseling patient:
[2021-07-30 08:24] LABS: Albumin 3.9 gm/dL (3.2-5.2); Calcium 9.3 mg/dL (8.6-10.4); Phosphorous 2.9 mg/dL (2.5-4.5)
[2021-07-30] MEDS ORDERED: ATORVASTATIN 40 MG TABLET PO SCH (09:00)
[2021-07-30] MEDS: MYCOPHENOLATE 250 MG CAPSULE PO SCH ×2 (09:07→20:55)
[2021-07-30] MEDS: DOCUSATE SODIUM 100 MG CAPSULE PO SCH ×2 (09:07→21:39)
[2021-07-30] MEDS: BUMETANIDE 1 MG TABLET PO SCH (09:07)
[2021-07-30] MEDS: TACROLIMUS 1 MG PO SCH (09:07)
[2021-07-30] MEDS: OMEPRAZOLE 20 MG CAPSULE PO SCH (09:07)
[2021-07-30] MEDS: amLODIPine 10 MG TABLET PO SCH (09:07)
[2021-07-30] MEDS: INSULIN LISPRO 1 UNIT/0.01 ML UNIT SQ SCH ×4 (09:07→20:57)
[2021-07-30] MEDS: TACROLIMUS 0.75 MG PO SCH (09:07)
[2021-07-30] MEDS: HEPARIN 5,000 UNIT/ML VIAL SQ SCH ×2 (09:11→20:54)
[2021-07-30] MEDS ORDERED: predniSONE 5 MG TABLET PO SCH (15:00)
[2021-07-30] MEDS: FLUCONAZOLE 100 MG TABLET PO SCH (17:36)
[2021-07-30] MEDS: INSULIN SUB-Q SCH (20:54)
[2021-07-30] MEDS: INSULIN DEGLUDEC 100 UNIT/ML SUB-Q SCH (20:54)
[2021-07-30] MEDS: ASPIRIN 81 MG TAB.CHEW PO SCH (20:55)
[2021-07-30] MEDS ORDERED: FLUCONAZOLE 100 MG TABLET PO SCH (21:00)
[2021-07-31] MEDS: INSULIN LISPRO 1 UNIT/0.01 ML UNIT SQ SCH ×2 (08:08→12:45)
[2021-07-31] MEDS: DOCUSATE SODIUM 100 MG CAPSULE PO SCH (08:10)
[2021-07-31] MEDS: FLUCONAZOLE 100 MG TABLET PO SCH (08:10)
[2021-07-31] MEDS: MYCOPHENOLATE 250 MG CAPSULE PO SCH (08:10)
[2021-07-31] MEDS: amLODIPine 10 MG TABLET PO SCH (08:10)
[2021-07-31] MEDS: OMEPRAZOLE 20 MG CAPSULE PO SCH (08:10)
[2021-07-31] MEDS: HEPARIN 5,000 UNIT/ML VIAL SQ SCH (08:11)
[2021-07-31] MEDS: TACROLIMUS 0.75 MG PO SCH (08:11)
[2021-07-31] MEDS: TACROLIMUS 1 MG PO SCH (08:11)
[2021-07-31] MEDS ORDERED: BUMETANIDE 1 MG TABLET PO SCH (09:00)
--- NOTE | 2021-07-31 10:09 | Nephrology Procedure Note ---
Procedure Note Patient information: Note initiated : 07/31/21 at 10:06 am Service Date, if different from initiated Date: [] Patient: Rain Aj 66 y/o F admitted on 07/29/21 for Fluid Overload. Chief Complaint: [SOB] Patient seen an evaluated on HD at 9:58 Hr today Appears comfortable Chronic 02 by NC She has refused chronic outpatient HD which I arranged last visit but she no showed, refused to come until she presents to ED with SOB. She was refractory to high dose loop diuretics She has an approximate GFR of 30-40 cc/min with RTx She has rLVEF CHF with some but biggist issue is pulmonary HTN with RVSP 66 mmHg U/F goal 3 Liters (+) JVP Rhonchi S1S2 w/o S3 BS (+) No Edema 1. Pulmonary HTN 2. Volume overload requiring periodic U/S 3. OK for Discharge and f/u with Dr Wise 4. I'd increase BUMETANIDE to 2 mg po BID at discharge. Medications Acetaminophen (Acetaminophen 325 Mg Tablet) 650 mg PO Q6HP PRN PRN Reason: PAIN/FEVER > 101 Albuterol/Ipratropium (Ipratropium/Albuterol 3 Ml Ampul.Neb) 3 ml NEB Q4HP PRN PRN Reason: Shortness Of Breath Amlodipine Besylate (Amlodipine 10 Mg Tablet) 10 mg PO 0900 [facility] Last Admin: 07/31/21 08:10 Dose: 10 mg Documented by: Aspirin (Aspirin 81 Mg Tab.Chew) 81 mg PO 2100 [facility] Last Admin: 07/30/21 20:55 Dose: 81 mg Documented by: Atorvastatin Calcium (Atorvastatin 40 Mg Tablet) 40 mg PO HS AFSHIN Bumetanide (Bumetanide 1 Mg Tablet) 1 mg PO 0900,1500 [facility] Last Admin: 07/31/21 08:10 Dose: 1 mg Documented by: Dextrose (Dextrose 50% 50 Ml Vial) 0 ml IV UD PRN PRN Reason: Hypoglycemia Diagnostic Test (Pha) (Accu-Chek 1 Each Strip) 1 each FS ACHS [facility] Last Admin: 07/31/21 08:09 Dose: 1 each Documented by: Docusate Sodium (Docusate Sodium 100 Mg Capsule) 100 mg PO BID [facility] Last Admin: 07/31/21 08:10 Dose: 100 mg Documented by: Fluconazole (Fluconazole 100 Mg Tablet) 200 mg PO 0900,1500 [facility] Last Admin: 07/31/21 08:10 Dose: 200 mg Documented by: Glucose (Dextrose 31 Gm Oral.Susp) 15 gm PO PRN PRN PRN Reason: Hypoglycemia Heparin Sodium (Porcine) (Heparin 5,000 Unit/Ml Vial) 5,000 unit SQ Q12 [facility] Last Admin: 07/31/21 08:11 Dose: 5,000 unit Documented by: Potassium Chloride 40 meq/ (Dextrose) 520 mls @ 130 mls/hr IV UD PRN PRN Reason: Potassium < 3 Magnesium Sulfate (Magnesium Sulfate) 2 gm in 50 mls @ 50 mls/hr IV UD PRN PRN Reason: Magnesium </= 1.6 Insulin Human Lispro (Insulin Lispro 1 Unit/0.01 Ml Unit) 0 unit SQ ACHS [facility]; Protocol Last Admin: 07/31/21 08:08 Dose: 4 units Documented by: Mycophenolate Mofetil (Mycophenolate 250 Mg Capsule) 250 mg PO BID [facility] Last Admin: 07/31/21 08:10 Dose: 250 mg Documented by: Omeprazole (Omeprazole 20 Mg Capsule) 20 mg PO QDAY [facility] Last Admin: 07/31/21 08:10 Dose: 20 mg Documented by: Ondansetron HCl (Ondansetron 4 Mg/2 Ml Vial) 4 mg IV Q4HP PRN PRN Reason: Nausea And Vomiting Insulin Degludec [ Tresiba Flextouch U- 100] 100 Unit/Ml Insulin Pen 13 dose SUB-Q QHS [facility] Last Admin: 07/30/21 20:54 Dose: 13 dose Documented by: Phenolphthalein- Docusate Sod 65-100 Mg Tablet 1 dose PO DAILYP PRN PRN Reason: Constipation Prasugrel [Effient] (10 Mg Tablet) 0.5 dose PO MoWeFr@0900 [facility] Last Admin: 07/30/21 09:19 Dose: Not Given Documented by: Tacrolimus [Envarsus Xr] 0.75 Mg Tablet Extended Release 1 dose PO QAM [facility] Last Admin: 07/31/21 08:11 Dose: 1 dose Documented by: Tacrolimus [Envarsus Xr] 1 Mg Tablet Extended Release 1 dose PO QAM [facility] Last Admin: 07/31/21 08:11 Dose: 1 dose Documented by: Polyethylene Glycol (Polyethylene Glycol 3350 17 Gm Packet) 17 gm PO DAILYP PRN PRN Reason: Constipation Potassium Chloride (Potassium Chloride 20 Meq Tablet) 40 meq PO UD PRN PRN Reason: Potssium is 3-3.5 Potassium Chloride (Potassium Chloride 20 Meq Tablet) 40 meq PO UD PRN PRN Reason: Potassium < 3 Prednisone (Prednisone 5 Mg Tablet) 5 mg PO 1500 AFSHIN Last Admin: 07/30/21 15:10 Dose: 5 mg Documented by: Senna (Sennosides 1 Tablet) 2 tab PO DAILYP PRN PRN Reason: Constipation
--- NOTE | 2021-07-31 11:17 | Discharge Summary ---
Discharge Provider Provider Patient information: Note initiated : 07/31/21 at 11:14 am Service Date, if different from initiated Date: [] Patient: Rain Aj a 66 y/o F admitted on 07/29/21 for Fluid Overload. Chief Complaint: [Fluid overload from medical noncompliance and missed hemodialysis] History of present illness: Ms. Aj is a 66 year old F Presents from dialysis center and need for acute inpatient dialysis for several days. Patient has a history of renal transplant and has a fistula but only requires hemodialysis once or twice a year per the patient due to fluid overload and pulmonary edema. She is on 5 L of oxygen at home. Patient is severely hard of hearing and a lot of history is obtained from the daughter. Daughter states that patient becomes fluid overloaded occasionally and it seems to be once a year. When this happens she will go in the hospital and the ually dialyze her for few days and that will resolve her issue. Patient was here in June for similar scenario and it sounds like she she was can be set up for outpatient dialysis but the patient did not go. Had increasing swelling in her legs. Date of admission: 07/29/21 10:35 Discharge date: 07/31/21 Primary care physician: Chris Dey MD Consults: 07/29/21 Consult to Physician [CONS] Urgent Comment: Consulting Provider: Anton Wise Reason For Exam: Physician to Consult Discharge Meds Discharge Medications Home Medications aspirin 81 mg PO 2100 02/12/21 [History Confirmed 07/29/21 Last Taken 06/26/21 21:00] fluconazole 200 mg tablet 200 mg PO BID tab 04/07/21 [History Confirmed 07/29/21 Last Taken 07/29/21 09:00] multivitamin 1 tab PO 1500 04/07/21 [History Confirmed 07/29/21 Last Taken 07/28/21] atorvastatin 40 mg tablet 40 mg PO QDAY #30 tab 04/08/21 [Rx Confirmed 07/29/21 Last Taken 07/28/21 21:00] blood sugar diagnostic #200 ea 04/08/21 [Rx Confirmed 07/30/21 Last Taken Unknown] insulin degludec 100 unit/mL (3 mL) subcutaneous pen 13 unit SUBCUT QHS #12 ml 04/08/21 [Rx Confirmed 07/29/21 Last Taken 07/28/21 21:00] omeprazole 20 mg capsule,delayed release 20 mg PO QDAY #30 cap 04/08/21 [Rx Confirmed 07/29/21 Last Taken 07/29/21 06:00] pen needle, diabetic 32 gauge x /" #100 ea 04/08/21 [Rx Confirmed 07/30/21 Last Taken Unknown] prasugrel 10 mg tablet See Rx Instructions .ROUTE .COMPLEX tab 04/21/21 [History Confirmed 07/29/21 Last Taken 06/25/21 09:00] tacrolimus 0.75 mg tablet,extended release 24 hr 0.75 mg PO QAM #90 tab 04/21/21 [Rx Confirmed 07/29/21 Last Taken 06/26/21 09:00] tacrolimus 1 mg tablet,extended release 24 hr 1 mg PO QAM #90 tab 04/21/21 [Rx Confirmed 07/29/21 Last Taken 07/29/21 09:00] amlodipine 10 mg PO 0900 06/27/21 [History Confirmed 07/29/21 Last Taken 07/29/21] mycophenolate mofetil [CellCept] 250 mg PO BID 06/27/21 [History Confirmed 07/29/21 Last Taken 07/28/21] phenolphthalein-docusate sod 100 tab PO PRN PRN 06/27/21 [History Confirmed 07/29/21 Last Taken 07/28/21 21:00] bumetanide 1 mg tablet 1 mg PO BID 07/06/21 [History Confirmed 07/29/21 Last Taken 07/29/21 09:00] insulin lispro 100 unit/mL subcutaneous pen See Rx Instructions .ROUTE .COMPLEX #27 ml 07/20/21 [Rx Confirmed 07/29/21 Last Taken 07/28/21] bumetanide 1 mg PO QDAY PRN 07/29/21 [History Confirmed 07/29/21 Last Taken Unknown] prednisone 5 mg PO 1500 07/29/21 [History Confirmed 07/29/21 Last Taken 07/28/21 15:00] bumetanide 2 mg PO 0900,1500 30 Days #120 tab 07/31/21 [Rx Last Taken Unknown] COURSE Hospital Course Hospital course: Patient was admitted on July 29, 2021 for 3 consecutive rounds of hemodialysis as well as IV diuretic therapy given for fluid overload secondary to missed hemodialysis and medical noncompliance. Patient has reached clinical stability on day 3 hospitalizations and the decision was made to discharge patient home with prescriptions given to her. She should follow-up with PCP and with neurologist. All questions were answered prior to patient being physically discharged. Discharge diagnosis: fluid overload Time Spent with Patient Time attestation: Total time spent providing and/or coordinating discharge services: Patient was admitted on July 29, 2021 for 3 consecutive rounds of hemodialysis as well as IV diuretic therapy given for fluid overload secondary to missed hemodialysis and medical noncompliance. Patient has reached clinical stability on day 3 hospitalizations and the decision was made to discharge patient home with prescriptions given to her. She should follow-up with PCP and with neurologist. All questions were answered prior to patient being physically discharged. EXAM Constitutional Vitals: Temp Pulse Resp BP Pulse Ox 37.2 C 94 H 16 135/75 99 07/31/21 08:45 07/31/21 10:47 07/31/21 07:58 07/31/21 10:47 07/31/21 09:37 General appearance: cooperative and no acute distress Head Head exam: Present atraumatic and normocephalic Eye Eye exam: Present EOMI and PERRL ENT ENT exam: Present mucous membranes moist, normal exam and normal external ear exam Neck Neck exam: Present normal inspection; Absent lymphadenopathy, tenderness and thyromegaly Respiratory Respiratory exam: Present decreased breath sounds; Absent accessory muscle use, respiratory distress and wheezes Cardiovascular Cardiovascular exam: Present normal rate and rhythm; Absent JVD GI/Abdominal GI/Abdominal exam: Present normal bowel sounds and soft; Absent organomegaly and tenderness Extremities Exam Extremities exam: Present full ROM, normal capillary refill and pedal edema; Absent normal inspection and tenderness Additional comments: LUE fistula Neurological Exam Neurological exam: Present alert, CN II-XII intact and oriented X3; Absent motor sensory deficit Psychiatric Psychiatric exam: Present normal affect and normal mood; Absent anxious and depressed Skin Skin exam: Present dry and intact Discharge Plan Patient/Caregiver Discharge Instructions Activity: increase activity as tolerated Diet: Renal/Consistent Carbs Prescriptions: New bumetanide 1 mg Tablet 2 mg PO 0900,1500 30 Days Qty: 120 RF: 0 Continued insulin lispro [Humalog KwikPen Insulin] 100 unit/mL insulin pen See Rx Instructions .ROUTE .COMPLEX Qty: 27 RF: 3 multivitamin Tablet 1 tab PO 1500 RF: 0 atorvastatin 40 mg tablet 40 mg PO QDAY Qty: 30 RF: 2 (DME) blood sugar diagnostic Strip See Rx Instructions .Route Qty: 200 RF: 5 Tresiba FlexTouch U-100 100 unit/mL (3 mL) insulin pen 13 unit subcut QHS Qty: 12 RF: 0 omeprazole 20 mg capsule,delayed release(DR/EC) 20 mg PO QDAY Qty: 30 RF: 2 (DME) pen needle, diabetic [Comfort EZ Pen [place]] 32 gauge x 3/16" needle See Rx Instructions .Route Qty: 100 RF: 5 Envarsus XR 1 mg tablet extended release 24 hr 1 mg PO QAM Qty: 90 RF: 3 Envarsus XR 0.75 mg tablet extended release 24 hr 0.75 mg PO QAM Qty: 90 RF: 3 aspirin 81 mg Tablet 81 mg PO 2100 RF: 0 fluconazole 200 mg tablet 200 mg PO BID RF: 0 prasugrel [Effient] 10 mg tablet See Rx Instructions .ROUTE .COMPLEX RF: 0 mycophenolate mofetil [CellCept] 250 mg capsule 250 mg PO BID RF: 0 phenolphthalein-docusate sod 65-100 mg Tablet 100 tab PO PRN PRN (Reason: Constipation) RF: 0 amlodipine 10 mg tablet 10 mg PO 0900 RF: 0 prednisone 5 mg tablet 5 mg PO 1500 RF: 0 bumetanide 1 mg Tablet 1 mg PO QDAY PRN (Reason: Edema) RF: 0 No Action bumetanide 1 mg tablet 1 mg PO BID RF: 0 Follow Up Plan Follow up with: Chris Dey MD [Primary Care Provider] - Anton Wise MD [Physician] - Patient Disposition: Home, Self-Care Rehab Potential: Good I certify that the patient requires SNF services: No Overall status at discharge: patient is back to baseline Discharge Orders: Discharge Order (Routine); Ordered 07/31/21 Ordered By: Deangelo FERGUSON VTE Deep Vein Thrombosis/Pulmonary Embolism Present on Admission: No
[2021-07-31] MEDS ORDERED: ATORVASTATIN 40 MG TABLET PO SCH (21:00)
== END 2021-07-31 13:40 | disposition home or self-care (01) | DRG 291 ==
LOC: MEDSUR 10:35
PROVIDERS: ADMIT Internal Medicine; ATTEND Internal Medicine

== ENCOUNTER 2021-09-07 10:59 | Inpatient (IN) ==
[2021-09-07] MEDS ORDERED: ONDANSETRON 4 MG/2 ML VIAL IV PRN (11:48)
[2021-09-07] MEDS ORDERED: ACETAMINOPHEN 325 MG TABLET PO PRN (11:53)
--- NOTE | 2021-09-07 12:20 | XRay Report ---
INDICATION: Congestive heart failure and volume overload TECHNIQUE: AP portable semiupright chest x-ray COMPARISON: Previous chest x-rays dated 06/30/2021, 06/27/2021, 02/24/2021 FINDINGS:There is a vascular stent within the left upper arm. Patient has undergone previous sternotomy. There are markers from coronary artery bypass procedure. There is a probable wire fragment projected over the right hemithorax. Lungs:Bilateral diffuse pulmonary parenchymal infiltrates consistent with pulmonary edema. Heart, vascular:There is marked cardiomegaly. Vascularity is prominent. There is peribronchial thickening. Appearance is consistent with pulmonary edema and congestive heart failure. Mediastinum, dusty:No mediastinal widening. No hilar mass Pleura:There is pleural fluid, right greater than left Skeletal:Negative. IMPRESSION: Cardiomegaly and congestive heart failure Interpreted and Authenticated by: Medardo Palacios 09/07/21
--- NOTE | 2021-09-07 13:57 | Nephrology Progress Note ---
SUBJECTIVE Subjective Patient information: Note initiated : 09/07/21 at 12:30 pm Service Date, if different from initiated Date: [] Patient: Rain Aj 66 y/o F admitted on 09/07/21 for Volume overload. Chief Complaint: [] Progressive shortness of breath Please see any of my prior notes for this patient with a failing renal transplant, pulmonary hypertension, heart failure with reduced LVEF, history of cryptococcus and a renal transplantation, CKD 3B/A3 who developed such dyspnea that she requires several treatments with isolated ultrafiltration probably to lower her PA pressures and dyspnea. From her previous hospitalization I cannot guarantee that she is unresponsive to large doses of bumetanide with or without additional metolazone. Only thing I can figure out is that she slowly accumulates fluid, worsening right-sided heart failure and requires ultrafiltration as she cannot be dialyzed. Per rumors this was approaching as the family was calling the office in the absence of Dr. Wise and calls were being routed to me, she is seen today in the clinic and admitted for 3 days of isolated ultrafiltration. In the past I attempted to place the patient on dialysis 2 days a week writing a letter of support that her GFR was not a problem it was dyspnea and fluid balance but the daughter and the patient would rather do this drop in sort of dialysis. Due to the governor and his Covid vaccine mandate, I have tried to explain that we can only provide acute dialysis with "bankers hours" and only during the week and they will have to fit into this format or plan on being medical lifeflighted to a distant tertiary care facility. Laboratory Tests 06/28/21 06/28/21 05:38 05:38 Tacrolimus 6.3 IgG 655 L IgA 185 IgM 199.7 KATHERINE Interpretation See comment Cryoglobulin Negative Complement C3 98.4 Complement C4 27.5 Free [place] LC, Quant 64.99 H Free Lambda LC, Quant 32.00 H Free [place]/Lambda Ratio 2.031 H 09/07/21 Vital Signs Temp Pulse Pulse Resp BP BP Pulse Ox 09/07/21 13:44 37.1 C 80 145/72 09/07/21 12:00 36.6 C 96 H 20 149/69 95 Intake and Output 09/07/21 09/07/21 09/07/21 05:59 13:59 21:59 Other: Weight 72.484 kg Head Head exam: Present atraumatic and normal inspection Eye Eye exam: Present normal appearance ENT ENT exam: Present mucous membranes dry Neck Neck exam: Present normal inspection Respiratory Respiratory exam: Present accessory muscle use, decreased breath sounds and respiratory distress; Absent rales Cardiovascular Cardiovascular exam: Present JVD, RRR, +S1, +S2 and systolic murmur (4/6 girish); Absent rubs GI/Abdominal GI/Abdominal exam: Present normal bowel sounds Back Exam Back exam: Absent CVA tenderness (L) and CVA tenderness (R) Neurological Exam Neurological exam: Present CN II-XII intact and oriented X3 Skin Skin exam: Present dry and intact A/P Narrative A/P Narrative: A/P Narrative A/P Narrative: A/P Assessment and plan (1) Failinf RTx with CKD G3b/A3 (2) Heart failure with reduced ejection fraction: (3) Pulmonary hypertension assoc with unclear multi-factorial mechanisms: (4) Hyponatremia with excess extracellular fluid volume: (5) Chronic respiratory failure with hypoxia: (6) Status post kidney transplant Narrative A/P Narrative: Assessment and plan (1) Status post kidney transplant: Assessment and plan: GFR stable relative to 02/[address] Wise Continue 1.75 mg qAM of Tacrolimus from pt home Rx supply Check [place] level Continue cellcept and prednisone Trend labs (2) Heart failure with reduced ejection fraction: Assessment and plan: No tamponade or effusion Restrictive physiology on ECHO Given the hx of yearly U/F for decompensated CHF...she would have to be way to the RIGHT on the [place] curve. The lack of urine production would agree with this. Isolated U/F tonight SPEP and light chain ratio, Inflammatory biomarkers and cryoglobulins in the AM Fat pad biopsy to r/o Amyloid Schedule out patient pyrophosphate scan with [facility]UC med at [facility] Follow up with Dr Oseas Rose at [facility] cardiology (3) Ischemic cardiomyopathy: Narrative A/P Narrative: 1. Acute U/F tonight to push back to left on starling curve 2. Work up cardiac amyloid as restrictive CHF pattern on ECHO and a chronic infection (Crypto) (4) Hyponatremia Short Tx ordered with HD PO fluid restrict D/C Diuretics as she is refractory to huge dose Bumex and metolazone (5) CKD G3b/A3 Arrange out patient Tx Hepatitis serologies Dr Wise's patient Time Spent With Patient Time: Total time spent is greater than 50% in coordination of care (as documented) at patient's floor/unit and/or counseling patient:
[2021-09-07] MEDS: 0.9 % SODIUM CHLORIDE 10 ML SYRINGE IV SCH ×2 (14:11→21:39)
[2021-09-07 14:24] LABS: Basophils % (Auto) 1.2 % (0.0-2.0); Eosinophils # (Auto) 0.15 K/mcL (0.00-0.70); Eosinophils % (Auto) 1.7 % (0.0-7.0); Hematocrit 31.2 % (34.1-44.9); Hemoglobin 10.4 g/dL (11.2-15.7); Lymphocytes # (Auto) 0.72 K/mcL (1.50-4.80); Lymphocytes % (Auto) 8.3 % (15.5-49.0); Mean Cell Volume 83.9 fL (80.0-100.0); Mean Corpuscular HGB Conc 33.3 g/dL (31.0-36.0); Monocytes # (Auto) 0.74 K/mcL (0.10-0.90); Monocytes % (Auto) 8.5 % (1.0-12.0); Neutrophils % (Auto) 80.3 % (38.0-78.0); Platelet Count 395 K/mcL (140-440); RBC 3.72 M/mcL (3.59-5.38); Red Cell Distribution Width 15.2 % (11.5-14.5); WBC 8.7 K/mcL (4.5-11.0)
--- NOTE | 2021-09-07 20:47 | Internal Med History&Physical ---
HPI History of Present Illness Patient information: Note initiated : 09/07/21 at 8:44 pm Service Date, if different from initiated Date: [] Patient: Rain Aj a 66 y/o F admitted on 09/07/21 for Volume overload. Chief Complaint: [couldnt breath] History of present illness: Ms. Aj is a 66 year old F with history of diabetes and coronary artery disease tells me she had a cadaveric donor kidney in 2018. She tells me she has never rejected here kidney but on reading chart I dont think was was understanding my meaning of transplant rejection vs actual decision to reject a transplant. Pt has been having fluid retention in recent months and severe pulmonary hypertension to 66 mmHg but relatively mild drop in LVEF to 50% only. Pt says was out of breath to do anything. I was called by Dr. Wise earlier today to admit to facilitate dialysis managed by workers compensation manager. Anticipate 2-3 courses. Pt tells me had dialysis today and plan for tomorrow morning as well. Looks like documented 4 liters diuresed Review of Systems ROS unobtainable: other (very hard of hearing) Review of systems: GEn pt says no fevers chills CV say had bypass before and scars on leg are from bypass. denies chest pain. does have VELAZQUEZ REsp +orthopnea compliance pt tells me she drinks 1 to 1.5 liters fluid daily. denies eating much salt. PFSH PFSH All Active Problems (Updated 09/07/21 @ 20:59 by Torsten Tafoya MD) Immunosuppression (Chronic) Arthritis (Acute) Skin cancer (Acute) Complication of anesthesia (Acute) Coronary artery disease (Chronic) Hypertension (Chronic) Ischemic cardiomyopathy (Chronic) Chronic respiratory failure with hypoxia (Chronic) Anemia (Chronic) Moderate protein-calorie malnutrition (Acute) Heart failure with reduced ejection fraction (Chronic) ESRD (end stage renal disease) (Chronic) Status post kidney transplant (Chronic) H/O partial thyroidectomy (Chronic) Chronic otitis media of left ear with perforated tympanic membrane (Chronic) Drainage from right ear (Chronic) 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, controlled, with neuropathy (Chronic) Shortness of breath (Acute) Plugged feeling in ear (Acute) Nose congested (Acute) Bloody nose (Acute) Cryptococcus (Acute) History of cryptococcosis (Acute) Kidney transplant status, cadaveric (Chronic) Chronic kidney disease (CKD) stage G3b/A3, moderately decreased glomerular filtration rate (GFR) between 30-44 mL/min/1.73 square meter and albuminuria creatinine ratio greater than 300 mg/g (Chronic) CHF (congestive heart failure) (Chronic) Hyponatremia (Acute) Hyponatremia with excess extracellular fluid volume (Chronic) CKD (chronic kidney disease) stage 4, GFR 15-29 ml/min (Acute) Pulmonary hypertension assoc with unclear multi-factorial mechanisms (Acute) Localized edema due to fluid overload (Chronic) Acute renal failure superimposed on stage 3b chronic kidney disease (Acute) Other fluid overload (Acute) Pulmonary hypertension associated with ESRD on dialysis (Acute) Medical History Acute HFrEF (heart failure with reduced ejection fraction) Acute kidney injury Anemia Arthritis Blood infection Bloody nose Chronic otitis media of left ear with perforated tympanic membrane Chronic respiratory failure with hypoxia 5 L O2 Complication of anesthesia Nausea with anesthesia Coronary artery disease CABG x5 (1999) Cryptococcus Drainage from right ear Chronic ESRD (end stage renal disease) Heart failure with reduced ejection fraction History of cryptococcosis Hypertension Hypokalemia Hypomagnesemia Immunosuppression Ischemic cardiomyopathy No change in current Rx MR (+) Decompensated CHF Moderate protein-calorie malnutrition Nose congested Plugged feeling in ear Shortness of breath Skin cancer Type 1 diabetes mellitus with retinopathy Type 1 diabetes, controlled, with neuropathy Surgical History H/O partial thyroidectomy History of section 1971 & 1973 History of coronary angioplasty with insertion of stent (~2017) History of coronary artery bypass graft (~2001) x5 History of hysterectomy (~1988) History of mitral valve repair History of partial thyroidectomy (~2005) and partial parathyroidectomy History of renal transplant (~2017) Status post kidney transplant 01/2018 Family History Mother Skin cancer Type 2 diabetes mellitus Father Type 2 diabetes mellitus Grandmother Type 2 diabetes mellitus Paternal Social History marital status: smoking status: Former smoker quit date: 11/06/99 pack-years: 5 alcohol intake frequency: former alcohol drinker substance use type: does not use MEDS/ALLERGIES Home Medications and Allergies Home Medications Medication Instructions Recorded Confirmed Type aspirin 81 mg PO 2100 02/12/21 07/29/21 History fluconazole 200 mg tablet 200 mg PO BID tab 04/07/21 07/29/21 History multivitamin 1 tab PO 1500 04/07/21 07/29/21 History atorvastatin 40 mg tablet 40 mg PO QDAY #30 tab 04/08/21 07/29/21 Rx blood sugar diagnostic #200 ea 04/08/21 07/30/21 Rx insulin degludec 100 unit/mL (3 13 unit SUBCUT QHS #12 ml 04/08/21 07/29/21 Rx mL) subcutaneous pen pen needle, diabetic 32 gauge x #100 ea 04/08/21 07/30/21 Rx 3" amlodipine 10 mg PO 0906/27/21 07/29/21 History mycophenolate mofetil [CellCept] 250 mg PO BID 06/27/21 07/29/21 History bumetanide 1 mg tablet 1 mg PO BID 07/06/21 07/29/21 History insulin lispro 100 unit/mL See Rx Instructions .ROUTE 07/20/21 07/29/21 Rx subcutaneous pen .COMPLEX #27 ml bumetanide 1 mg PO QDAY PRN 07/29/21 07/29/21 History prednisone 5 mg PO 1500 07/29/21 07/29/21 History tacrolimus 0.75 mg tablet,extended 0.75 mg PO QAM #90 tab 08/26/21 Rx release 24 hr tacrolimus 1 mg tablet,extended 1 mg PO QAM #90 tab 08/26/21 Rx release 24 hr docusate sodium [Dulcolax Stool 100 - 200 mg PO DAILY PRN 09/07/21 09/07/21 History Softener (dss)] omeprazole 20 mg PO QAM 09/07/21 09/07/21 History Allergies Allergy/AdvReac Type Severity Reaction Status Date / Time anti-thymocyte globulin, Allergy Severe Pain and Verified 09/07/21 09:50 rabbit swelling [From Thymoglobulin] of heart,possible piperacillin [From Zosyn] Allergy Mild Rash Verified 09/07/21 09:50 tazobactam [From Zosyn] Allergy Mild Rash Verified 09/07/21 09:50 cefepime [From Maxipime] AdvReac Severe Seizure Verified 09/07/21 09:50 EXAM Constitutional Vitals: Temp Pulse Resp BP Pulse Ox 97.8 F 100 H 18 115/62 95 09/07/21 16:40 09/07/21 16:40 09/07/21 16:00 09/07/21 16:40 09/07/21 16:00 Additional findings Additional findings: GEN WDWN Female in NAD but mild sob still sitting semiupright in bed CV RRR with 4/6 RENZO BHA RUSB Lungs decreased breath sounds bases worst in right base. left base more air movement and some crackles Calves trace edema only ankles feet are 1+ DP pulses intact and feet are warm DATA Data Completed and Pending Labs: Labs from last 24 hours 09/07/21 09/07/21 09/07/21 13:50 13:50 13:50 WBC 8.7 RBC 3.72 Hgb 10.4 L Hct 31.2 L MCV 83.9 MCH 28.0 MCHC 33.3 RDW 15.2 H Plt Count 395 MPV 10.0 Neut % (Auto) 80.3 H Lymph % (Auto) 8.3 L Hernando % (Auto) 8.5 Eos % (Auto) 1.7 Baso % (Auto) 1.2 Lymph # (Auto) 0.72 L [place] # (Auto) 0.74 Eos # (Auto) 0.15 Baso # (Auto) 0.10 Absolute Neutrophils 6.98 Phosphorus 3.0 Magnesium 2.2 Hep Bs Antigen Negative A/P Assessment and plan (1) Immunosuppression: Status: Chronic Comment: continue tacrolimus managed by nephrology (2) Ischemic cardiomyopathy: Status: Chronic Comment: No change in current Rx MR (+) Decompensated CHF primarily was diastolic dysfunction based on echo this year 05/2021 (3) ESRD (end stage renal disease): Status: Chronic Comment: continue dialysis bmp mag phos in the morning and daily Time Spent With Patient Time: Total time spent is greater than 50% in coordination of care (as documented) at patient's floor/unit and/or counseling patient: Total time spent with greater than 50% in coordination of care (as documented) at patient's floor/unit and/or counseling patient:: Greater than 35 minutes
[2021-09-07] MEDS ORDERED: TACROLIMUS 0.5 MG CAPSULE PO SCH (21:00)
[2021-09-07] MEDS ORDERED: DEXTROSE 31 GM ORAL.SUSP PO PRN (21:03)
[2021-09-07] MEDS ORDERED: DEXTROSE 50% 50 ML VIAL IV PRN (21:03)
[2021-09-07] MEDS: DOCUSATE SODIUM 100 MG CAPSULE PO SCH (21:35)
[2021-09-07] MEDS: SENNOSIDES 1 TABLET PO SCH (21:35)
[2021-09-07] MEDS: ATORVASTATIN 40 MG TABLET PO SCH (21:39)
[2021-09-07] MEDS: MYCOPHENOLATE 250 MG CAPSULE PO SCH (21:39)
[2021-09-07] MEDS: INSULIN GLARGINE, HUMAN 1 UNIT/0.01 ML SQ SCH (21:40)
[2021-09-08] MEDS: 0.9 % SODIUM CHLORIDE 10 ML SYRINGE IV SCH ×4 (05:07→21:22)
--- NOTE | 2021-09-08 07:27 | Nephrology Progress Note ---
SUBJECTIVE Subjective Patient information: Note initiated : 09/08/21 at 7:23 am Service Date, if different from initiated Date: [] Patient: Rain Aj 66 y/o F admitted on 09/07/21 for Volume overload. Chief Complaint: [SOB] Patient with failing renal transplant though adequate GFR to remain hemodialysis free develops monthly episodes of fluid overload in the setting of mild reduction of LV systolic function and marked pulmonary hypertension. Third episode requiring acute ultrafiltration since late May 2021. Today's Tx: U/F for 4000 with stable BP during Tx She underwent isolated ultrafiltration yesterday, will repeat today and t omorrow. Assuming a adequate GFR she will be discharged home to follow-up with Dr. Wise. Laboratory Tests 09/07/21 09/08/21 09/08/21 13:50 05:45 05:46 WBC 8.7 Hgb 10.4 L Hct 31.2 L Eos % (Auto) 1.7 Sodium 131 L Potassium 3.9 Chloride 95 L Carbon Dioxide 20 L BUN 29 H Creatinine 1.8 H GFR Calculation 29 Calcium 9.3 Phosphorus 3.3 PTH Intact 189.1 H Current Medications Acetaminophen (Acetaminophen 325 Mg Tablet) 650 mg PO Q6HP PRN; Protocol PRN Reason: Per Pain Protocol/Fever > 101 Aspirin (Aspirin 81 Mg Tab.Chew) 81 mg CHEWED DAILY [facility] Atorvastatin Calcium (Atorvastatin 40 Mg Tablet) 40 mg PO [facility] Last Admin: 09/07/21 21:39 Dose: 40 mg Documented by: Dextrose (Dextrose 50% 50 Ml Vial) 0 ml IV UD PRN PRN Reason: Hypoglycemia Diagnostic Test (Pha) (Accu-Chek 1 Each Strip) 1 each FS [facility] Docusate Sodium (Docusate Sodium 100 Mg Capsule) 100 mg PO BID [facility] Last Admin: 09/07/21 21:35 Dose: Not Given Documented by: Glucose (Dextrose 31 Gm Oral.Susp) 15 gm PO PRN PRN PRN Reason: Hypoglycemia Insulin Glargine (Insulin Glargine, Human 1 Unit/0.01 Ml) 10 unit SQ [facility] Last Admin: 09/07/21 21:40 Dose: Not Given Documented by: Insulin Human Lispro (Insulin Lispro 1 Unit/0.01 Ml Unit) 0 unit SQ [facility]; Protocol Mycophenolate Mofetil (Mycophenolate 250 Mg Capsule) 250 mg PO BID@0700,2000 [facility] Last Admin: 09/07/21 21:39 Dose: 250 mg Documented by: Ondansetron HCl (Ondansetron 4 Mg/2 Ml Vial) 4 mg IV Q6HP PRN PRN Reason: Nausea And Vomiting Prasugrel (Effient) (5 Mg Tablet) 1 dose PO MoWeFr@0900 ONE Stop: 09/08/21 09:01 Envarsus Xr 1 Mg (Tablet) 1 dose PO DAILY [facility] Envarsus Xr 0.75 Mg (Tab) 1 dose PO DAILY [facility] Prednisone (Prednisone 5 Mg Tablet) 5 mg PO QPMCC [facility] Senna (Sennosides 1 Tablet) 2 tab PO HS [facility] Last Admin: 09/07/21 21:35 Dose: Not Given Documented by: Sodium Chloride (0.9 % Sodium Chloride 10 Ml Syringe) 10 ml IV Q8 [facility] Last Admin: 09/08/21 05:07 Dose: 10 ml Documented by: Vital Signs Temp Pulse Pulse Resp BP BP Pulse Ox 09/08/21 07:10 91 H 141/70 09/08/21 06:40 80 138/69 09/08/21 06:10 85 139/70 09/08/21 05:40 36.8 C 87 137/57 09/08/21 03:20 36.5 C 83 20 134/67 97 09/07/21 23:32 36.6 C 89 20 131/65 97 09/07/21 19:59 36.7 C 85 20 141/60 96 09/07/21 16:40 36.6 C 100 H 115/62 09/07/21 16:11 100 H 145/68 09/07/21 16:00 36.6 C 100 H 18 145/68 95 09/07/21 15:42 72 135/79 09/07/21 15:14 100 H 148/88 09/07/21 14:47 91 H 141/74 09/07/21 14:13 80 144/61 09/07/21 13:44 37.1 C 80 145/72 09/07/21 12:00 36.6 C 96 H 20 149/69 95 Intake and Output 09/07/21 09/08/21 09/08/21 21:59 05:59 13:59 Intake Total 240 240 Output Total 4000 0 Balance -3760 240 Intake: Oral 240 240 Output: Void Amount 0 # of times incontinent of urine 0 Hemodialysis UF 4000 Other: Meal Dinner Percent of Meal Consumed 25% Feeding Ability Independent # Voids 0 Weight 69.536 kg Constitutional Vitals: Vital Signs Temp Pulse Resp BP Pulse Ox 36.8 C 91 H 20 141/70 97 09/08/21 05:40 09/08/21 07:10 09/08/21 03:20 09/08/21 07:10 09/08/21 03:20 Period Temp Pulse Resp BP Sys/Delgado Pulse Ox Last 24 Hr 36.5 C-37.1 C 72-100 18-20 115-149/57-88 95-97 Intake and Output 09/07/21 09/08/21 09/08/21 21:59 05:59 13:59 Intake Total 240 240 Output Total 4000 0 Balance -3760 240 Weight 69.536 kg Intake & Output: Intake & Output 09/07/21 09/08/21 09/08/21 21:59 05:59 13:59 Intake Total 240 240 Output Total 4000 0 Balance -3760 240 Weight 69.536 kg Intake: Oral 240 240 Output: Void Amount 0 # of times incontinent of urine 0 Hemodialysis UF 4000 Other: Meal Dinner Percent of Meal Consumed 25% Feeding Ability Independent # Voids 0 General: Alert and oriented x3 HEENT: Equal round and reactive pupils, extra ocular muscles are intact and sclerae anicteric Neck: Visible JVD sitting Chest: Some dyspnea at rest and mild accessory muscle use Diminished breath sounds at the bases Cardiac: Regular rhythm at 90 bpm. 4/6 systolic ejection murmur at diminishes with compression of her AV fistula but still present No pericardial rub Abdomen: Soft with normoactive bowel sounds Extremities: Right arm AV fistula with good bruit and thrill Trace to 1+ lower extremity edema Neurologic: Nonfocal Psychiatric: Oriented x3, not anxious Skin: Dry and intact A/P Narrative A/P Narrative: Assessment and plan (1) Status post kidney transplant: Assessment and plan: GFR stable relative to 02/[address] Wise Continue 1.75 mg qAM of Tacrolimus from pt home Rx supply Check [place] level Continue cellcept and prednisone Trend labs (2) Heart failure with reduced ejection fraction: Assessment and plan: No tamponade or effusion Restrictive physiology on ECHO Given the hx of yearly U/F for decompensated CHF...she would have to be way to the RIGHT on the Starling curve. The lack of urine production would agree with this. Isolated U/F tonight SPEP and light chain ratio, Inflammatory biomarkers and cryoglobulins in the AM Fat pad biopsy to r/o Amyloid Schedule out patient pyrophosphate scan with NUC med at [facility] Follow up with Dr Oseas Rose at [facility] cardiology (3) Ischemic cardiomyopathy: Narrative A/P Narrative: 1. Acute U/F tonight to push back to left on starling curve 2. Work up cardiac amyloid as restrictive CHF pattern on ECHO and a chronic infection (Crypto) (4) Hyponatremia Short Tx ordered with HD PO fluid restrict D/C Diuretics as she is refractory to huge dose Bumex and metolazone (5) CKD G3b/A3 Arrange out patient Tx Hepatitis serologies Dr Wise's patient Time Spent With Patient Time: Total time spent is greater than 50% in coordination of care (as documented) at patient's floor/unit and/or counseling patient: Home tomorrow
[2021-09-08 08:53] LABS: Albumin 3.9 gm/dL (3.2-5.2); Calcium 9.3 mg/dL (8.6-10.4); Phosphorous 3.3 mg/dL (2.5-4.5)
[2021-09-08] MEDS ORDERED: PRASUGREL 5 MG PO ONE (09:00)
[2021-09-08] MEDS ORDERED: TACROLIMUS 0.5 MG CAPSULE PO SCH (09:00)
[2021-09-08] MEDS: ASPIRIN 81 MG TAB.CHEW CHEWED SCH (10:18)
[2021-09-08] MEDS: MYCOPHENOLATE 250 MG CAPSULE PO SCH ×2 (10:18→21:20)
[2021-09-08] MEDS: INSULIN LISPRO 1 UNIT/0.01 ML UNIT SQ SCH ×4 (10:19→21:22)
[2021-09-08] MEDS: ENVARSUS 0.75 MG PO SCH (10:20)
[2021-09-08] MEDS: ENVARSUS 1 MG PO SCH (10:20)
[2021-09-08] MEDS: DOCUSATE SODIUM 100 MG CAPSULE PO SCH ×2 (10:20→21:21)
--- NOTE | 2021-09-08 14:41 | Discharge Summary ---
Discharge Provider Provider Patient information: Note initiated : 09/08/21 at 2:39 pm Service Date, if different from initiated Date: [] Patient: Rain Aj 66 y/o F admitted on 09/07/21 for Volume overload. Chief Complaint: [] Date of admission: 09/07/21 11:11 Discharge date: 09/10/21 Primary care physician: Chris Dey MD Discharge Meds Discharge Medications Home Medications aspirin 81 mg PO 2100 02/12/21 [History Confirmed 09/07/21 Last Taken 06/26/21 21:00] fluconazole 200 mg tablet 200 mg PO BID tab 04/07/21 [History Confirmed 09/07/21 Last Taken 07/29/21 09:00] multivitamin 1 tab PO 1500 04/07/21 [History Confirmed 09/07/21 Last Taken 07/28/21] atorvastatin 40 mg tablet 40 mg PO QDAY #30 tab 04/08/21 [Rx Confirmed 09/07/21 Last Taken 07/28/21 21:00] blood sugar diagnostic #200 ea 04/08/21 [Rx Confirmed 09/07/21 Last Taken Unknown] insulin degludec 100 unit/mL (3 mL) subcutaneous pen 13 unit SUBCUT QHS #12 ml 04/08/21 [Rx Confirmed 09/07/21 Last Taken 07/28/21 21:00] pen needle, diabetic 32 gauge x 3/16" #100 ea 04/08/21 [Rx Confirmed 09/07/21 Last Taken Unknown] amlodipine 10 mg PO 0900 06/27/21 [History Confirmed 09/07/21 Last Taken 07/29/21] mycophenolate mofetil [CellCept] 250 mg PO BID 06/27/21 [History Confirmed 09/07/21 Last Taken 07/28/21] bumetanide 1 mg tablet 1 mg PO BID 07/06/21 [History Confirmed 09/07/21 Last Taken 07/29/21 09:00] insulin lispro 100 unit/mL subcutaneous pen See Rx Instructions .ROUTE .COMPLEX #27 ml 07/20/21 [Rx Confirmed 09/07/21 Last Taken 07/28/21] bumetanide 1 mg PO QDAY PRN 07/29/21 [History Confirmed 09/07/21 Last Taken Unknown] prednisone 5 mg PO 1500 07/29/21 [History Confirmed 09/07/21 Last Taken 07/28/21 15:00] tacrolimus 0.75 mg tablet,extended release 24 hr 0.75 mg PO QAM #90 tab 08/26/21 [Rx Confirmed 09/07/21 Last Taken Unknown] tacrolimus 1 mg tablet,extended release 24 hr 1 mg PO QAM #90 tab 08/26/21 [Rx Confirmed 09/07/21 Last Taken Unknown] docusate sodium [Dulcolax Stool Softener (dss)] 100 - 200 mg PO DAILY PRN 09/07/21 [History Confirmed 09/07/21 Last Taken Unknown] omeprazole 20 mg PO QAM 09/07/21 [History Confirmed 09/07/21 Last Taken Unknown] COURSE Hospital Course Hospital course: History of present illness: Ms. Aj is a 66 year old F with history of diabetes and coronary artery disease tells me she had a cadaveric donor kidney in 2018. She tells me she has never rejected here kidney but on reading chart I dont think was was understanding my meaning of transplant rejection vs actual decision to reject a transplant. Pt has been having fluid retention in recent months and severe pulmonary hypertension to 66 mmHg but relatively mild drop in LVEF to 50% only. Pt says was out of breath to do anything. I was called by Dr. Wise earlier today to admit to facilitate dialysis managed by automotive parts salesperson. Anticipate 2-3 courses. Pt tells me had dialysis today and plan for tomorrow morning as well. Looks like documented 4 liters diuresed 09/08 Interval history: 2nd dialysis another 4000 cc removed Pt wants to have another dialysis in am then go home doesnt want outpt dialysis. lita Rodrigez says pt has a functioning kidney and usually not overload. Has history of cryptococcus treated with diflucan high dose 200 mg bid per ID and need to continue. Had amphotericin twice 09/09 Slept okay. Did have a little bit of nausea with dialysis this morning but otherwise no new complaints. 09/10 No overnight event or new complaints. Patient stable for discharge. Follow-up with nephrology A: *Volume overloaded with acute on chronic diastolic CHF w/pulmonary edema: -improving *CKD IIIb-IV: h/o HD but received kidney transplant 2018 *Kidney transplant: on Myco/Tac/Pred *Hyponatremia, chronic: *O2-dependent @home (5L): *DM: *HTN/HLD: *Anemia, chronic: *GERD: *CAD w/CABG: *Mitral Regurg: *Hearing impairment: *h/o Cryptococcus: on fluconazole by ID Discharge diagnosis: Volume overload end-stage renal disease decompensated CHF Secondary discharge diagnosis: Immunosuppression cardiomyopathy Time Spent with Patient Time attestation: Total time spent providing and/or coordinating discharge services: Time spent: Greater than 30 minutes EXAM Constitutional Vitals: Temp Pulse Resp BP Pulse Ox 97.9 F 78 18 128/68 97 09/08/21 12:00 09/08/21 12:00 09/08/21 12:00 09/08/21 12:00 09/08/21 12:00 Discharge Data Data Completed and Pending Labs on day of discharge: Labs from last 24 hours 09/08/21 09/08/21 09/07/21 05:46 05:45 13:50 Sodium 131 L Potassium 3.9 Chloride 95 L Carbon Dioxide 20 L Anion Gap 16.0 BUN 29 H Creatinine 1.8 H GFR Calculation 29 Glucose 87 Calcium 9.3 Phosphorus 3.3 Magnesium NT-Pro-B Natriuret Pep 6540.0 H Albumin 3.9 PTH Intact 189.1 H Hep Bs Antigen Negative 09/07/21 13:50 Sodium Potassium Chloride Carbon Dioxide Anion Gap BUN Creatinine GFR Calculation Glucose Calcium Phosphorus 3.0 Magnesium 2.2 NT-Pro-B Natriuret Pep Albumin PTH Intact Hep Bs Antigen Discharge Plan Patient/Caregiver Discharge Instructions Activity: increase activity as tolerated Diet: Renal/Consistent Carbs Prescriptions: Continued insulin lispro [Humalog KwikPen Insulin] 100 unit/mL insulin pen See Rx Instructions .ROUTE .COMPLEX Qty: 27 RF: 3 Envarsus XR 1 mg tablet extended release 24 hr 1 mg PO QAM Qty: 90 RF: 3 Envarsus XR 0.75 mg tablet extended release 24 hr 0.75 mg PO QAM Qty: 90 RF: 3 multivitamin Tablet 1 tab PO 1500 RF: 0 atorvastatin 40 mg tablet 40 mg PO QDAY Qty: 30 RF: 2 (DME) blood sugar diagnostic Strip See Rx Instructions .Route Qty: 200 RF: 5 Tresiba FlexTouch U-100 100 unit/mL (3 mL) insulin pen 13 unit subcut QHS Qty: 12 RF: 0 (DME) pen needle, diabetic [Comfort EZ Pen [place]] 32 gauge x 3/16" needle See Rx Instructions .Route Qty: 100 RF: 5 bumetanide 1 mg tablet 1 mg PO BID RF: 0 aspirin 81 mg Tablet 81 mg PO 2100 RF: 0 fluconazole 200 mg tablet 200 mg PO BID RF: 0 mycophenolate mofetil [CellCept] 250 mg capsule 250 mg PO BID RF: 0 amlodipine 10 mg tablet 10 mg PO 0900 RF: 0 prednisone 5 mg tablet 5 mg PO 1500 RF: 0 bumetanide 1 mg Tablet 1 mg PO QDAY PRN (Reason: Edema) RF: 0 docusate sodium [Dulcolax Stool Softener (dss)] 100 mg Capsule 100 - 200 mg PO DAILY PRN (Reason: Constipation) RF: 0 omeprazole 20 mg capsule,delayed release(DR/EC) 20 mg PO QAM RF: 0 Follow Up Plan Follow up with: Oseas Hedrick [Physician] - Anton Wise MD [Physician] - Patient Disposition: Home, Self-Care Prognosis: Undetermined Overall status at discharge: patient is progressing back to baseline Discharge Orders: Discharge Order (Routine); Ordered 09/10/21 Ordered By: Pato Welsh
[2021-09-08] MEDS ORDERED: FLUCONAZOLE 100 MG TABLET PO SCH (15:00)
--- NOTE | 2021-09-08 16:07 | Internal Med Progress Note ---
SUBJECTIVE Subjective Patient information: Note initiated : 09/08/21 at 4:03 pm Service Date, if different from initiated Date: [] Patient: Rain Aj a 66 y/o F admitted on 09/07/21 for Volume overload. Chief Complaint: [] Principal diagnosis: ESRD with volume overload Interval history: 2nd dialysis another 4000 cc removed Pt wants to have another dialysis in am then go home doesnt want outpt dialysis. daugher Rain says pt has a functioning kidney and usually not overload. Has history of cryptococcus treated with diflucan high dose 200 mg bid per ID and need to continue. Had amphotericin twice Pertinent ROS: no fever breathing is better echo no MV failure before Additional PMFSH (Level 3 Only): known heart murmur Constitutional Vitals: Vital Signs Temp Pulse Resp BP Pulse Ox 97.9 F 78 18 128/68 97 09/08/21 12:00 09/08/21 12:00 09/08/21 12:00 09/08/21 12:00 09/08/21 12:00 Period Temp Pulse Resp BP Sys/Delgado Pulse Ox Last 24 Hr 97.2 F-98.2 F 78-100 18-20 115-145/57-70 96-99 Intake and Output 09/08/21 09/08/21 09/08/21 05:59 13:59 21:59 Intake Total 240 Output Total 0 4000 Balance 240 -4000 Weight 69.536 kg Patient Weight 09/09/21 05:59 Weight 69.536 kg Intake & Output: Intake & Output 09/08/21 09/08/21 09/08/21 05:59 13:59 21:59 Intake Total 240 Output Total 0 4000 Balance 240 -4000 Weight 69.536 kg Intake: Oral 240 Output: Void Amount 0 # of times incontinent of urine 0 Hemodialysis UF 4000 Other: # Voids 0 Additional findings Additional findings: GEN WDWN WF in NAD CV RRR with axillary murmur 4-5/6 Lungs basilar crackles calves trace edema OBJ DATA Labs CBC & Chem 7: 09/07/21 13:50 09/08/21 05:45 Labs: Abnormal Lab Results 09/08/21 09/08/21 09/07/21 05:46 05:45 13:50 Hgb 10.4 L Hct 31.2 L RDW 15.2 H Neut % (Auto) 80.3 H Lymph % (Auto) 8.3 L Lymph # (Auto) 0.72 L Sodium 131 L Chloride 95 L Carbon Dioxide 20 L BUN 29 H Creatinine 1.8 H NT-Pro-B Natriuret Pep 6540.0 H PTH Intact 189.1 H Meds: Medications Acetaminophen (Acetaminophen 325 Mg Tablet) 650 mg PO Q6HP PRN; Protocol PRN Reason: Per Pain Protocol/Fever > 101 Aspirin (Aspirin 81 Mg Tab.Chew) 81 mg CHEWED DAILY [facility] Last Admin: 09/08/21 10:18 Dose: 81 mg Documented by: Atorvastatin Calcium (Atorvastatin 40 Mg Tablet) 40 mg PO [facility] Last Admin: 09/07/21 21:39 Dose: 40 mg Documented by: Bumetanide (Bumetanide 1 Mg Tablet) 1 mg PO BIDD [facility] Dextrose (Dextrose 50% 50 Ml Vial) 0 ml IV UD PRN PRN Reason: Hypoglycemia Diagnostic Test (Pha) (Accu-Chek 1 Each Strip) 1 each FS [facility] Last Admin: 09/08/21 12:14 Dose: 1 each Documented by: Docusate Sodium (Docusate Sodium 100 Mg Capsule) 100 mg PO BID [facility] Last Admin: 09/08/21 10:20 Dose: 100 mg Documented by: Fluconazole (Fluconazole 100 Mg Tablet) 200 mg PO BID@0900,1500 [facility]; Protocol Glucose (Dextrose 31 Gm Oral.Susp) 15 gm PO PRN PRN PRN Reason: Hypoglycemia Insulin Glargine (Insulin Glargine, Human 1 Unit/0.01 Ml) 10 unit SQ [facility] Last Admin: 09/07/21 21:40 Dose: Not Given Documented by: Insulin Human Lispro (Insulin Lispro 1 Unit/0.01 Ml Unit) 0 unit SQ [facility]; Protocol Last Admin: 09/08/21 13:43 Dose: 8 units Documented by: Mycophenolate Mofetil (Mycophenolate 250 Mg Capsule) 250 mg PO BID@0700,2000 [facility] Last Admin: 09/08/21 10:18 Dose: 250 mg Documented by: Omeprazole (Omeprazole 20 Mg Capsule) 20 mg PO B [facility] Ondansetron HCl (Ondansetron 4 Mg/2 Ml Vial) 4 mg IV Q6HP PRN PRN Reason: Nausea And Vomiting Envarsus Xr 1 Mg (Tablet) 1 dose PO DAILY [facility] Last Admin: 09/08/21 10:20 Dose: 1 dose Documented by: Envarsus Xr 0.75 Mg (Tab) 1 dose PO DAILY [facility] Last Admin: 09/08/21 10:20 Dose: 1 dose Documented by: Prednisone (Prednisone 5 Mg Tablet) 5 mg PO QPMCC [facility] Senna (Sennosides 1 Tablet) 2 tab PO HS [facility] Last Admin: 09/07/21 21:35 Dose: Not Given Documented by: Sodium Chloride (0.9 % Sodium Chloride 10 Ml Syringe) 10 ml IV Q8 [facility] Last Admin: 09/08/21 05:07 Dose: 10 ml Documented by: A/P Assessment and plan (1) Immunosuppression: Status: Chronic Comment: continue tacrolimus managed by nephrology (2) Ischemic cardiomyopathy: Status: Chronic Comment: No change in current Rx MR (+) Decompensated CHF primarily was diastolic dysfunction based on echo this year 05/2021 due to severe MV murmur and pulmonary edema will check a limited echo. if leaking consider repair (3) ESRD (end stage renal disease): Status: Chronic Comment: continue dialysis bmp mag phos in the morning and daily (4) History of cryptococcosis: Status: Acute Comment: cont high dose fluconazole as directed by ID Time Spent With Patient Time: Total time spent is greater than 50% in coordination of care (as documented) at patient's floor/unit and/or counseling patient: 35
--- NOTE | 2021-09-08 16:58 | Internal Med Progress Note ---
SUBJECTIVE Subjective Patient information: Note initiated : 09/08/21 at 4:54 pm Service Date, if different from initiated Date: [] Patient: Rain Aj a 66 y/o F admitted on 09/07/21 for Volume overload. Chief Complaint: [] Principal diagnosis: ESRD with volume overload Interval history: History of present illness: Ms. Aj is a 66 year old F with history of diabetes and coronary artery disease tells me she had a cadaveric donor kidney in 2018. She tells me she has never rejected here kidney but on reading chart I dont think was was understanding my meaning of transplant rejection vs actual decision to reject a transplant. Pt has been having fluid retention in recent months and severe pulmonary hypertension to 66 mmHg but relatively mild drop in LVEF to 50% only. Pt says was out of breath to do anything. I was called by Dr. Wise earlier today to admit to facilitate dialysis managed by division supervisor. Anticipate 2-3 courses. Pt tells me had dialysis today and plan for tomorrow morning as well. Looks like documented 4 liters diuresed 09/08 Interval history: 2nd dialysis another 4000 cc removed Pt wants to have another dialysis in am then go home doesnt want outpt dialysis. daugher Rain says pt has a functioning kidney and usually not overload. Has history of cryptococcus treated with diflucan high dose 200 mg bid per ID and need to continue. Had amphotericin twice 09/09 Constitutional Vitals: Vital Signs Temp Pulse Resp BP Pulse Ox 97.9 F 78 18 128/68 97 09/08/21 12:00 09/08/21 12:00 09/08/21 12:00 09/08/21 12:00 09/08/21 12:00 Period Temp Pulse Resp BP Sys/Delgado Pulse Ox Last 24 Hr 97.2 F-98.2 F 78-91 18-20 128-141/57-70 96-99 Intake and Output 09/08/21 09/08/21 09/08/21 05:59 13:59 21:59 Intake Total 240 Output Total 0 4000 Balance 240 -4000 Weight 69.536 kg Patient Weight 09/09/21 05:59 Weight 69.536 kg Intake & Output: Intake & Output 09/08/21 09/08/21 09/08/21 05:59 13:59 21:59 Intake Total 240 Output Total 0 4000 Balance 240 -4000 Weight 69.536 kg Intake: Oral 240 Output: Void Amount 0 # of times incontinent of urine 0 Hemodialysis UF 4000 Other: # Voids 0 Exam: General: Alert, Awake, No acute Distress Eyes/N/T: EOMI, Head/Neck: neck supple, CV: RRR, No murmurs, Pulm: basilar rales, no wheezing Abd: soft, nontender, +BS x4 Ext: no clubbing/cyanosis, b/l LE trace edema Neuro: Alert, no focal deficits, moves all extremities, Skin: warm/dry OBJ DATA Labs CBC & Chem 7: 09/07/21 13:50 09/08/21 05:45 Labs: Abnormal Lab Results 09/08/21 09/08/21 09/07/21 05:46 05:45 13:50 Hgb 10.4 L Hct 31.2 L RDW 15.2 H Neut % (Auto) 80.3 H Lymph % (Auto) 8.3 L Lymph # (Auto) 0.72 L Sodium 131 L Chloride 95 L Carbon Dioxide 20 L BUN 29 H Creatinine 1.8 H NT-Pro-B Natriuret Pep 6540.0 H PTH Intact 189.1 H Meds: Medications Acetaminophen (Acetaminophen 325 Mg Tablet) 650 mg PO Q6HP PRN; Protocol PRN Reason: Per Pain Protocol/Fever > 101 Aspirin (Aspirin 81 Mg Tab.Chew) 81 mg CHEWED DAILY [facility] Last Admin: 09/08/21 10:18 Dose: 81 mg Documented by: Atorvastatin Calcium (Atorvastatin 40 Mg Tablet) 40 mg PO HS [facility] Last Admin: 09/07/21 21:39 Dose: 40 mg Documented by: Bumetanide (Bumetanide 1 Mg Tablet) 1 mg PO BIDD [facility] Dextrose (Dextrose 50% 50 Ml Vial) 0 ml IV UD PRN PRN Reason: Hypoglycemia Diagnostic Test (Pha) (Accu-Chek 1 Each Strip) 1 each FS ACHS [facility] Last Admin: 09/08/21 12:14 Dose: 1 each Documented by: Docusate Sodium (Docusate Sodium 100 Mg Capsule) 100 mg PO BID [facility] Last Admin: 09/08/21 10:20 Dose: 100 mg Documented by: Fluconazole (Fluconazole 100 Mg Tablet) 200 mg PO BID@0900,1500 [facility]; Protocol Glucose (Dextrose 31 Gm Oral.Susp) 15 gm PO PRN PRN PRN Reason: Hypoglycemia Insulin Glargine (Insulin Glargine, Human 1 Unit/0.01 Ml) 10 unit SQ [facility] Last Admin: 09/07/21 21:40 Dose: Not Given Documented by: Insulin Human Lispro (Insulin Lispro 1 Unit/0.01 Ml Unit) 0 unit SQ [facility]; Protocol Last Admin: 09/08/21 13:43 Dose: 8 units Documented by: Mycophenolate Mofetil (Mycophenolate 250 Mg Capsule) 250 mg PO BID@0700,1999 [facility] Last Admin: 09/08/21 10:18 Dose: 250 mg Documented by: Omeprazole (Omeprazole 20 Mg Capsule) 20 mg PO ACB [facility] Ondansetron HCl (Ondansetron 4 Mg/2 Ml Vial) 4 mg IV Q6HP PRN PRN Reason: Nausea And Vomiting Envarsus Xr 1 Mg (Tablet) 1 dose PO DAILY [facility] Last Admin: 09/08/21 10:20 Dose: 1 dose Documented by: Envarsus Xr 0.75 Mg (Tab) 1 dose PO DAILY [facility] Last Admin: 09/08/21 10:20 Dose: 1 dose Documented by: Prednisone (Prednisone 5 Mg Tablet) 5 mg PO QPMCC [facility] Senna (Sennosides 1 Tablet) 2 tab PO [facility] Last Admin: 09/07/21 21:35 Dose: Not Given Documented by: Sodium Chloride (0.9 % Sodium Chloride 10 Ml Syringe) 10 ml IV Q8 [facility] Last Admin: 09/08/21 05:07 Dose: 10 ml Documented by: A/P Narrative A/P Narrative: A: *Volume overloaded with acute on chronic diastolic CHF w/pulmonary edema: - *CKD IIIb-IV: h/o HD but received kidney transplant 2017 *Kidney transplant: on Myco/Tac/Pred *Hyponatremia, chronic: *O2-dependent @home (5L): *DM: *HTN/HLD: *Anemia, chronic: *GERD: *CAD w/CABG: *Mitral Regurg: *Hearing impairment: *h/o Cryptococcus: on fluconazole by ID P: -Nephrology for HD -O2 supp, IS -basal and SSI -cont transplant meds -cont ASA/effient/Statin -limited echo, if MR severe the refferal for repair outpt -pt/ot -ppx: heparin/ home ppi DNR Time Spent With Patient Time: Total time spent is greater than 50% in coordination of care (as documented) at patient's floor/unit and/or counseling patient:
[2021-09-08] MEDS: BUMETANIDE 1 MG TABLET PO SCH (17:50)
[2021-09-08] MEDS: predniSONE 5 MG TABLET PO SCH (17:51)
[2021-09-08] MEDS: FLUCONAZOLE 100 MG TABLET PO SCH (17:51)
[2021-09-08] MEDS: ATORVASTATIN 40 MG TABLET PO SCH (21:20)
[2021-09-08] MEDS: INSULIN GLARGINE, HUMAN 1 UNIT/0.01 ML SQ SCH (21:22)
[2021-09-08] MEDS: SENNOSIDES 1 TABLET PO SCH (21:22)
[2021-09-09] MEDS: 0.9 % SODIUM CHLORIDE 10 ML SYRINGE IV SCH ×3 (04:58→20:58)
--- NOTE | 2021-09-09 07:30 | Internal Med Progress Note ---
SUBJECTIVE Subjective Patient information: Note initiated : 09/09/21 at 7:28 am Service Date, if different from initiated Date: [] Patient: Rain Aj a 66 y/o F admitted on 09/07/21 for Volume overload. Chief Complaint: [] Principal diagnosis: ESRD with volume overload Interval history: History of present illness: Ms. Aj is a 66 year old F with history of diabetes and coronary artery disease tells me she had a cadaveric donor kidney in 2018. She tells me she has never rejected here kidney but on reading chart I dont think was was understanding my meaning of transplant rejection vs actual decision to reject a transplant. Pt has been having fluid retention in recent months and severe pulmonary hypertension to 66 mmHg but relatively mild drop in LVEF to 50% only. Pt says was out of breath to do anything. I was called by Dr. Wise earlier today to admit to facilitate dialysis managed by supervisor grower. Anticipate 2-3 courses. Pt tells me had dialysis today and plan for tomorrow morning as well. Looks like documented 4 liters diuresed 09/08 Interval history: 2nd dialysis another 4000 cc removed Pt wants to have another dialysis in am then go home doesnt want outpt dialysis. daugher Rain says pt has a functioning kidney and usually not overload. Has history of cryptococcus treated with diflucan high dose 200 mg bid per ID and need to continue. Had amphotericin twice 09/09 Slept okay. Did have a little bit of nausea with dialysis this morning but otherwise no new complaints. Review of Systems: denies headache/fever/chills/nausea/vomiting/chest or abdominal pain/diarrhea. Otherwise see above. Constitutional Vitals: Vital Signs Temp Pulse Resp BP Pulse Ox 97.8 F 82 18 127/61 99 09/09/21 07:17 09/09/21 07:17 09/09/21 04:11 09/09/21 07:17 09/09/21 04:11 Period Temp Pulse Resp BP Sys/Delgado Pulse Ox Last 24 Hr 97.2 F-98.4 F 78-89 18-20 112-154/55-73 97-99 Intake and Output 09/08/21 09/09/21 09/09/21 21:59 05:59 13:59 Intake Total 720 600 Output Total 1805 Balance 720 600 -1805 Weight 65.998 kg Intake & Output: Intake & Output 09/08/21 09/09/21 09/09/21 21:59 05:59 13:59 Intake Total 720 600 Output Total 1805 Balance 720 600 -1805 Weight 65.998 kg Intake: Oral 720 600 Output: Hemodialysis UF 1805 Other: Meal Dinner Percent of Meal Consumed 100% Feeding Ability Independent Exam: General: Alert, Awake, No acute Distress Eyes/N/T: EOMI, Head/Neck: neck supple, CV: RRR, No murmurs, Pulm: basilar rales, no wheezing Abd: soft, nontender, +BS x4 Ext: no clubbing/cyanosis, b/l LE mild edema Neuro: Alert, no focal deficits, moves all extremities, Skin: warm/dry OBJ DATA Labs CBC & Chem 7: 09/07/21 13:50 09/08/21 05:45 Labs: Abnormal Lab Results 09/08/21 09/08/21 09/07/21 05:46 05:45 13:50 Hgb 10.4 L Hct 31.2 L RDW 15.2 H Neut % (Auto) 80.3 H Lymph % (Auto) 8.3 L Lymph # (Auto) 0.72 L Sodium 131 L Chloride 95 L Carbon Dioxide 20 L BUN 29 H Creatinine 1.8 H NT-Pro-B Natriuret Pep 6540.0 H PTH Intact 189.1 H Meds: Medications Acetaminophen (Acetaminophen 325 Mg Tablet) 650 mg PO Q6HP PRN; Protocol PRN Reason: Per Pain Protocol/Fever > 101 Aspirin (Aspirin 81 Mg Tab.Chew) 81 mg CHEWED DAILY [facility] Last Admin: 09/08/21 10:18 Dose: 81 mg Documented by: Atorvastatin Calcium (Atorvastatin 40 Mg Tablet) 40 mg PO HS [facility] Last Admin: 09/08/21 21:20 Dose: 40 mg Documented by: Bumetanide (Bumetanide 1 Mg Tablet) 1 mg PO BIDD [facility] Last Admin: 09/08/21 17:50 Dose: Not Given Documented by: Dextrose (Dextrose 50% 50 Ml Vial) 0 ml IV UD PRN PRN Reason: Hypoglycemia Diagnostic Test (Pha) (Accu-Chek 1 Each Strip) 1 each FS ACHS [facility] Last Admin: 09/08/21 21:21 Dose: 1 each Documented by: Docusate Sodium (Docusate Sodium 100 Mg Capsule) 100 mg PO BID [facility] Last Admin: 09/08/21 21:21 Dose: Not Given Documented by: Fluconazole (Fluconazole 100 Mg Tablet) 200 mg PO BID@0900,1500 [facility]; Protocol Last Admin: 09/08/21 17:51 Dose: Not Given Documented by: Glucose (Dextrose 31 Gm Oral.Susp) 15 gm PO PRN PRN PRN Reason: Hypoglycemia Insulin Glargine (Insulin Glargine, Human 1 Unit/0.01 Ml) 10 unit SQ [facility] Last Admin: 09/08/21 21:22 Dose: Not Given Documented by: Insulin Human Lispro (Insulin Lispro 1 Unit/0.01 Ml Unit) 0 unit SQ [facility]; Protocol Last Admin: 09/08/21 21:22 Dose: Not Given Documented by: Mycophenolate Mofetil (Mycophenolate 250 Mg Capsule) 250 mg PO BID@0700,2000 [facility] Last Admin: 09/08/21 21:20 Dose: 250 mg Documented by: Omeprazole (Omeprazole 20 Mg Capsule) 20 mg PO ACB [facility] Ondansetron HCl (Ondansetron 4 Mg/2 Ml Vial) 4 mg IV Q6HP PRN PRN Reason: Nausea And Vomiting Envarsus Xr 1 Mg (Tablet) 1 dose PO DAILY [facility] Last Admin: 09/08/21 10:20 Dose: 1 dose Documented by: Envarsus Xr 0.75 Mg (Tab) 1 dose PO DAILY [facility] Last Admin: 09/08/21 10:20 Dose: 1 dose Documented by: Prednisone (Prednisone 5 Mg Tablet) 5 mg PO QPMCC [facility] Last Admin: 09/08/21 17:51 Dose: Not Given Documented by: Senna (Sennosides 1 Tablet) 2 tab PO [facility] Last Admin: 09/08/21 21:22 Dose: Not Given Documented by: Sodium Chloride (0.9 % Sodium Chloride 10 Ml Syringe) 10 ml IV Q8 [facility] Last Admin: 09/09/21 04:58 Dose: Not Given Documented by: A/P Narrative A/P Narrative: A: *Volume overloaded with acute on chronic diastolic CHF w/pulmonary edema: -improving *CKD IIIb-IV: h/o HD but received kidney transplant 2017 *Kidney transplant: on Myco/Tac/Pred *Hyponatremia, chronic: *O2-dependent @home (5L): *DM: *HTN/HLD: *Anemia, chronic: *GERD: *CAD w/CABG: *Mitral Regurg: *Hearing impairment: *h/o Cryptococcus: on fluconazole by ID P: -Nephrology for HD -O2 supp, IS -basal and SSI -cont transplant meds -cont ASA/effient/Statin -limited echo, if MR severe then referral for repair outpt -pt/ot -ppx: heparin/ home ppi DNR Time Spent With Patient Time: Total time spent is greater than 50% in coordination of care (as documented) at patient's floor/unit and/or counseling patient:
--- NOTE | 2021-09-09 08:18 | Nephrology Progress Note ---
SUBJECTIVE Subjective Patient information: Note initiated : 09/09/21 at 8:13 am Service Date, if different from initiated Date: [] Patient: Rain Aj 66 y/o F admitted on 09/07/21 for Volume overload. Chief Complaint: [SOB] Failing RTX with CKD 3/4 with pulmonary HTN and CHF with rLVEF. Repeated need for isolated U/F to adjust volume status. Today, we have reached the point of no further fluid removal possible as she only tolerated 1800 cc additional U/F before decreased pre-load led to hypotension. Treatment stopped and pre- diascharge CXR ordered. Chronic O2 dependence at 5/min. Has been offered a permanent chair in HD but refused previously. Has follow up with DR Hannah Needs follow-up with Dr. Oseas Hedrick for cardiovascular issues Chest x-ray after 3 days of isolated ultrafiltration (09/09/2021) Principal diagnosis: ESRD with volume overload Constitutional Vitals: Vital Signs Temp Pulse Resp BP Pulse Ox 36.6 C 82 18 127/61 99 09/09/21 07:17 09/09/21 07:17 09/09/21 04:11 09/09/21 07:17 09/09/21 04:11 Period Temp Pulse Resp BP Sys/Delgado Pulse Ox Last 24 Hr 36.3 C-36.9 C 78-89 18-20 112-154/55-73 97-99 Intake and Output 09/08/21 09/09/21 09/09/21 21:59 05:59 13:59 Intake Total 720 600 Output Total 1805 Balance 720 600 -1805 Weight 65.998 kg Intake & Output: Intake & Output 09/08/21 09/09/21 09/09/21 21:59 05:59 13:59 Intake Total 720 600 Output Total 1805 Balance 720 600 -1805 Weight 65.998 kg Intake: Oral 720 600 Output: Hemodialysis UF 1805 Other: Meal Dinner Percent of Meal Consumed 100% Feeding Ability Independent Head Head exam: Present atraumatic and normal inspection Eye Eye exam: Present normal appearance Neck Neck exam: Present full ROM Respiratory Respiratory exam: Present decreased breath sounds; Absent rales and rhonchi Cardiovascular Cardiovascular exam: Present RRR, +S1, +S2 and systolic murmur (4/6 with some decrease bt occlusion of left avf); Absent gallop, JVD and rubs GI/Abdominal GI/Abdominal exam: Present normal bowel sounds; Absent rebound and tenderness Extremities Exam Extremities exam: Absent pedal edema Neurological Exam Neurological exam: Present CN II-XII intact and oriented X3 Psychiatric Psychiatric exam: Present normal affect and normal mood Skin Skin exam: Present dry A/P Narrative A/P Narrative: A/P Narrative: Assessment and plan (1) Status post kidney transplant: Assessment and plan: GFR stable relative to 02/[address] Wise Continue 1.75 mg qAM of Tacrolimus from pt home Rx supply Check Tacro level - pending Continue cellcept and prednisone Trend labs (2) Heart failure with reduced ejection fraction: Assessment and plan: No tamponade or effusion Restrictive physiology on ECHO Given the hx of yearly U/F for decompensated CHF...she would have to be way to the RIGHT on the Starling curve. The lack of urine production would agree with this. Isolated U/F tonight SPEP and light chain ratio, Inflammatory biomarkers and cryoglobulins in the AM Fat pad biopsy to r/o Amyloid Schedule out patient pyrophosphate scan with [facility]UC med at [facility] Follow up with Dr Oseas Hedrick at [facility] cardiology (3) Ischemic cardiomyopathy: A. Acute U/F tonight to push back to left on starling curve B. Work up cardiac amyloid as restrictive CHF pattern on ECHO and a chronic infection (Crypto) (4) Hyponatremia Short Tx ordered with isolated u/f PO fluid restrict D/C Diuretics as she is refractory to huge dose Bumex and metolazone (5) CKD G3b/A3 Dr Wise's patient Time Spent With Patient Time: Total time spent is greater than 50% in coordination of care (as documented) at patient's floor/unit and/or counseling patient:
--- NOTE | 2021-09-09 08:28 | XRay Report ---
INDICATION: follow up HD for fluid overload TECHNIQUE: AP portable chest x-ray COMPARISON: Previous chest x-rays dated 09/07/2021, 06/30/2021, 06/27/2021 FINDINGS:Previous median sternotomy and coronary artery bypass procedure Lungs:Decreased parenchymal infiltrates consistent with improved congestive heart failure. No new parenchymal infiltrates. No evidence for pneumonia. Heart, vascular:Mild cardiomegaly. This is significantly improved. Mediastinum, dusty:No mediastinal widening. No hilar mass Pleura:Decreased or resolved pleural effusions Skeletal:Negative. IMPRESSION: Significant interval improvement since 09/07/2021 Interpreted and Authenticated by: Medardo Palacios 09/09/21
[2021-09-09] MEDS: OMEPRAZOLE 20 MG CAPSULE PO SCH (09:46)
[2021-09-09] MEDS: BUMETANIDE 1 MG TABLET PO SCH ×2 (09:47→16:16)
[2021-09-09] MEDS: ASPIRIN 81 MG TAB.CHEW CHEWED SCH (09:47)
[2021-09-09] MEDS: FLUCONAZOLE 100 MG TABLET PO SCH ×2 (09:48→16:15)
[2021-09-09] MEDS: MYCOPHENOLATE 250 MG CAPSULE PO SCH ×2 (09:49→20:57)
[2021-09-09] MEDS: ENVARSUS 0.75 MG PO SCH (09:51)
[2021-09-09] MEDS: ENVARSUS 1 MG PO SCH (09:51)
[2021-09-09] MEDS: INSULIN LISPRO 1 UNIT/0.01 ML UNIT SQ SCH ×4 (09:54→20:57)
[2021-09-09] MEDS: DOCUSATE SODIUM 100 MG CAPSULE PO SCH ×2 (09:55→20:58)
[2021-09-09] MEDS ORDERED: FLU VACC QS2021-22(6MOS UP)/PF 60 MCG/0.5 ML SYRINGE IM ONE (10:00)
[2021-09-09] MEDS: predniSONE 5 MG TABLET PO SCH (17:58)
[2021-09-09] MEDS: INSULIN GLARGINE, HUMAN 1 UNIT/0.01 ML SQ SCH (20:56)
[2021-09-09] MEDS: ATORVASTATIN 40 MG TABLET PO SCH (20:57)
[2021-09-09] MEDS: SENNOSIDES 1 TABLET PO SCH (20:58)
[2021-09-10] MEDS: 0.9 % SODIUM CHLORIDE 10 ML SYRINGE IV SCH (05:25)
--- NOTE | 2021-09-10 06:40 | XRay Report ---
INDICATION: Fluid overload TECHNIQUE: AP portable semiupright chest x-ray COMPARISON: Previous chest x-rays dated 09/09/2021, 09/07/2021, 06/30/2021. Previous CT scan dated 02/12/2021 FINDINGS:Previous median sternotomy and coronary artery bypass procedure. There is a focal density in the left retrocardiac region. This has been present on previous examinations. This focal density corresponds in location to a pleural calcification demonstrated on previous CT scan. Lungs:No focal pulmonary parenchymal infiltrate or mass. Pulmonary edema pattern is markedly improved since 09/07/2021 Heart, vascular:Heart size is mildly enlarged but significantly improved. Vascularity is within normal limits. Mediastinum, dusty:No mediastinal widening. No hilar mass Pleura:No pleural fluid. No pleural-based mass or calcification Skeletal:Previous median sternotomy IMPRESSION: 1. Improved chest x-ray with near complete resolution of findings consistent with congestive heart failure 2. No new abnormality Interpreted and Authenticated by: Medardo Palacios 09/10/21
[2021-09-10] MEDS: MYCOPHENOLATE 250 MG CAPSULE PO SCH (07:26)
[2021-09-10] MEDS: INSULIN LISPRO 1 UNIT/0.01 ML UNIT SQ SCH (07:26)
[2021-09-10] MEDS: OMEPRAZOLE 20 MG CAPSULE PO SCH (07:26)
[2021-09-10] MEDS: FLUCONAZOLE 100 MG TABLET PO SCH (08:40)
[2021-09-10] MEDS: BUMETANIDE 1 MG TABLET PO SCH (08:40)
[2021-09-10] MEDS: ASPIRIN 81 MG TAB.CHEW CHEWED SCH (08:40)
[2021-09-10] MEDS: ENVARSUS 0.75 MG PO SCH (08:40)
[2021-09-10] MEDS: DOCUSATE SODIUM 100 MG CAPSULE PO SCH (08:41)
[2021-09-10] MEDS: ENVARSUS 1 MG PO SCH (08:41)
== END 2021-09-10 10:25 | disposition home or self-care (01) | DRG 291 ==
LOC: MEDSUR 11:11
PROVIDERS: ADMIT Internal Medicine; ATTEND Internal Medicine